=== PATIENT | female | born 1980 | race Caucasian/White ===

== ENCOUNTER 2017-04-08 14:58 | Emergency (ER) | payer MEDICAID ==
[~2017-04-08] VITALS: Ht 175.3 cm; Wt 104.3 kg
[2017-04-08 16:27] LABS: URINE BILIRUBIN - DIPSTICK NEGATIVE (NEG)
[2017-04-08 16:28] LABS: URINE BLOOD NEGATIVE (NEG)
--- NOTE | 2017-04-08 16:43 | Urgent Treatment Center Report ---
History of Present Issue Date/Time Seen by Provider 04/08/17 1642 Visit Reason Pt arrived:Walked Presenting Problem:PT C/O RLQ PAIN SINCE 0300 TODAY ALONG WITH NAUSEA AND ADVISES THAT IT HASN'T LET UP. PT REPORTS THAT SHE HAD A PARTIAL HYSTERECTOMY LAST JUN BUT STILL HAS HER OVARIES AND ALSO HAS HER APPENDIX Location if Accident: Onset of symptoms date/time:/ or onset unknown for:MEDICAL HX UNKNOWN Have you (or family members/close friends) recently traveled outside the [place]? N If Yes, where/when: Have you had exposure to infectious disease within the past month? TB? Other? Specify: c/o RLQ pain starting suddenly and waking her up at 0300 this morning. No relief w. advil, hot shower, gas x, heating pad, standing, sitting, laying down. Called PCP at 3pm. No available appts so reported to [facility] where she has waited her turn to be seen. Pain constant, 9/10, severe, sharp, "pressure pushing in and down" associated w/ constant nausea. no vomiting, "although I feel like I could". Denies diarrhea. Hx of partial hysterectomy 9 months ago. No appetite. Source patient Exam Limitations no limitations ALLERGIES Coded Allergies: No Known Allergies (03/11/17) Home Medications Reported Medications OMEPRAZOLE MAGNESIUM (Prilosec OTC) 20 MG PO DAILY History Medical History General CAD? No Angina: No [place]: No Hypertension? Yes Hyperlipidemia? No CHF? No DVT? No PE? No COPD? No Asthma? No Anemia? No GERD? No Gastric ulcers? No GI Bleed? No Hernia? No Thyroid Problems? No Hypothyroidism? No CVA? No Seizures? No Diabetes? No Insulin Dependent: No Insulin Pump: No Home FSBS? No Renal Insuffiency? No UTI? No Stones? No BPH? No GB Disease: No Nephritic Syndrome? No Asplenia? No Hepatitis? No Sickle Cell Disease? No Arthritis? No Migraines? No Cataracts? No Glaucoma? No MRSA? No HIV? No TB? No Anxiety? No Depression? No Cancer? No More? No Immunization HX DT/Tetanus 5-10 YRS Surgical Hx Previous Surgery?Y TUBAL MARTHA 07/06 Family History Family HX Diabetes No CAD No Hypertension Yes Hyperlipidemia No Cancer No TB No Social History Smoking Hx Smoker: Current Every Day Smoker Tobacco: Yes Type Cigarettes Packs/day 1 1/2 - 2 Packs Alcohol Alcohol: No Review of Systems All Other Systems Reviewed and Negative Constitutional denies chills, denies fever, denies malaise Respiratory denies shortness of breath Cardiovascular denies chest pain Gastrointestinal see HPI, denies constipation Genitourinary other (dark urine today w/ UA only). denies: discharge, dysuria, frequency, hesitancy, hematuria. Musculoskeletal denies back pain, denies joint pain Skin denies change in color, denies lesions, denies lumps, denies rash Physical Exam Vital Signs Vital Signs Date Time Temp Pulse Resp B/P Pulse O2 O2 Flow FiO2 Ox Delivery Rate 04/08 1617 98.8 89 18 130/82 96 General Appearance mild distress, guarding right lower quadrant Respiratory Status No: respiratory distress. Lung Sounds anterior: lungs clear. posterior: lungs clear. bilateral: lungs clear. Cardiovascular regular rate/rhythm, no peripheral edema, no murmur Gastrointestinal soft, no organomegaly, no pulsatile mass, abnormal bowel sounds (hypoactive), tenderness (RLQ) Back no CVA tenderness Neurologic alert, oriented x 3 Skin normal color, warm/dry Medical Decision Making LABS/Meds/Orders Pt receiving controlled substance in ED? No Results/Orders Laboratory Tests 04/08/17 1620: Urine Color DARK YELLOW, Urine Appearance CLOUDY, Urine pH 8.5, Ur Specific [place] 1.015, Urine Protein TRACE H, Urine Ketones NEGATIVE, Urine Blood NEGATIVE, Urine Nitrate POSITIVE H, Urine Bilirubin NEGATIVE, Urine Urobilinogen 1.0, Ur Leukocyte Esterase NEGATIVE, Urine Glucose NEGATIVE Orders Procedure Date/time Status [facility] URINE DIPSTICK 04/08 162 Complete Progress [facility] Progress Notes Date 04/08/17 Time 1650 Comment Discussed symptoms, exam and u/a results w/ pt. Pt doesn't agree that this is possible a UTI. Reports she has had UTIs in the past and never this severe. Requesting further abdominal pain evaluation. Called ER to give report. no answer. Departure Departure Time of Disposition 1654 Disposition Still a Patient Clinical Impression Primary Impression: Abdominal pain, right lower quadrant Condition STABLE Additional Instructions Requesting further abdominal pain evalution. Discussed ER transfer. Pt agreeable. Report called to [facility] at 1655. Room 4 available. at 1659
--- NOTE | 2017-04-08 16:43 | Urgent Treatment Center Report ---
History of Present Issue Date/Time Seen by Provider 04/08/17 1642 Visit Reason Pt arrived:Walked Presenting Problem:PT C/O RLQ PAIN SINCE 0300 TODAY ALONG WITH NAUSEA AND ADVISES THAT IT HASN'T LET UP. PT REPORTS THAT SHE HAD A PARTIAL HYSTERECTOMY LAST JUN BUT STILL HAS HER OVARIES AND ALSO HAS HER APPENDIX Location if Accident: Onset of symptoms date/time:/ or onset unknown for:MEDICAL HX UNKNOWN Have you (or family members/close friends) recently traveled outside the [place]? N If Yes, where/when: Have you had exposure to infectious disease within the past month? TB? Other? Specify: c/o RLQ pain starting suddenly and waking her up at 0300 this morning. No relief w. advil, hot shower, gas x, heating pad, standing, sitting, laying down. Called PCP at 3pm. No available appts so reported to [facility] where she has waited her turn to be seen. Pain constant, 9/10, severe, sharp, "pressure pushing in and down" associated w/ constant nausea. no vomiting, "although I feel like I could". Denies diarrhea. Hx of partial hysterectomy 9 months ago. No appetite. Source patient Exam Limitations no limitations ALLERGIES Coded Allergies: No Known Allergies (03/11/17) Home Medications Reported Medications OMEPRAZOLE MAGNESIUM (Prilosec OTC) 20 MG PO DAILY History Medical History General CAD? No Angina: No [place]: No Hypertension? Yes Hyperlipidemia? No CHF? No DVT? No PE? No COPD? No Asthma? No Anemia? No GERD? No Gastric ulcers? No GI Bleed? No Hernia? No Thyroid Problems? No Hypothyroidism? No CVA? No Seizures? No Diabetes? No Insulin Dependent: No Insulin Pump: No Home FSBS? No Renal Insuffiency? No UTI? No Stones? No BPH? No GB Disease: No Nephritic Syndrome? No Asplenia? No Hepatitis? No Sickle Cell Disease? No Arthritis? No Migraines? No Cataracts? No Glaucoma? No MRSA? No HIV? No TB? No Anxiety? No Depression? No Cancer? No More? No Immunization HX DT/Tetanus 5-10 YRS Surgical Hx Previous Surgery?Y TUBAL MARTHA 07/06 Family History Family HX Diabetes No CAD No Hypertension Yes Hyperlipidemia No Cancer No TB No Social History Smoking Hx Smoker: Current Every Day Smoker Tobacco: Yes Type Cigarettes Packs/day 1 1/2 - 2 Packs Alcohol Alcohol: No Review of Systems All Other Systems Reviewed and Negative Constitutional denies chills, denies fever, denies malaise Respiratory denies shortness of breath Cardiovascular denies chest pain Gastrointestinal see HPI, denies constipation Genitourinary other (dark urine today w/ UA only). denies: discharge, dysuria, frequency, hesitancy, hematuria. Musculoskeletal denies back pain, denies joint pain Skin denies change in color, denies lesions, denies lumps, denies rash Physical Exam Vital Signs Vital Signs Date Time Temp Pulse Resp B/P Pulse O2 O2 Flow FiO2 Ox Delivery Rate 04/08 1617 98.8 89 18 130/82 96 General Appearance mild distress, guarding right lower quadrant Respiratory Status No: respiratory distress. Lung Sounds anterior: lungs clear. posterior: lungs clear. bilateral: lungs clear. Cardiovascular regular rate/rhythm, no peripheral edema, no murmur Gastrointestinal soft, no organomegaly, no pulsatile mass, abnormal bowel sounds (hypoactive), tenderness (RLQ) Back no CVA tenderness Neurologic alert, oriented x 3 Skin normal color, warm/dry Medical Decision Making LABS/Meds/Orders Pt receiving controlled substance in ED? No Results/Orders Laboratory Tests 04/08/17 1620: Urine Color DARK YELLOW, Urine Appearance CLOUDY, Urine pH 8.5, Ur Specific [place] 1.015, Urine Protein TRACE H, Urine Ketones NEGATIVE, Urine Blood NEGATIVE, Urine Nitrate POSITIVE H, Urine Bilirubin NEGATIVE, Urine Urobilinogen 1.0, Ur Leukocyte Esterase NEGATIVE, Urine Glucose NEGATIVE Orders Procedure Date/time Status [facility] URINE DIPSTICK 04/08 [address] [facility] Progress Notes Date 04/08/17 Time 1650 Comment Discussed symptoms, exam and u/a results w/ pt. Pt doesn't agree that this is possible a UTI. Reports she has had UTIs in the past and never this severe. Requesting further abdominal pain evaluation. Called ER to give report. no answer. Departure Departure Time of Disposition 1654 Disposition Still a Patient Clinical Impression Primary Impression: Abdominal pain, right lower quadrant Condition STABLE Additional Instructions Requesting further abdominal pain evalution. Discussed ER transfer. Pt agreeable. Report called to [facility] at 1655. Room 4 available. at 1651
[2017-04-08 17:33] LABS: LYMPH # 3.5 K/mm3 (0.7-4.5); LYMPH % 21.7 % (10-50.0)
--- NOTE | 2017-04-08 17:47 | Emergency Room Report ---
History of Present Illness Time Seen by 285 Presenting Problem in Triage Pt arrived:Walked Presenting Problem:PT C/O RLQ PAIN SINCE 0300 TODAY ALONG WITH NAUSEA AND ADVISES THAT IT HASN'T LET UP. 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 N Clinical Suspician of Infection? N Mental Status: 1 - Regular (Normal Baseline) Sepsis Risk:Low Sepsis Risk Have you (or family members/close friends) recently traveled outside the [place]? N If Yes, where/when: Have you had exposure to infectious disease within the past month? N TB? Other? Specify: Nausea, diminished appetite since this morning, RLQ abdominal pain, nonradiating , no urinary sx, took some Ibuprofen PIZZA CHEF, hurts to move around. No neurological sx. No fever or vomiting, no blood from above or below, no personal or FH UC or Crohn's. ALLERGIES Coded Allergies: No Known Allergies (03/11/17) Home Medications Reported Medications OMEPRAZOLE MAGNESIUM (Prilosec OTC) 20 MG PO DAILY History Medical History General CAD? No Angina: No [place]: No Hypertension? Yes Hyperlipidemia? No CHF? No DVT? No PE? No COPD? No Asthma? No Anemia? No GERD? No Gastric ulcers? No GI Bleed? No Hernia? No Thyroid Problems? No Hypothyroidism? No CVA? No Seizures? No Diabetes? No Insulin Dependent: No Insulin Pump: No Home FSBS? No Renal Insuffiency? No End Stage Renal Disease? No UTI? No Stones? No BPH? No GB Disease: No Nephritic Syndrome? No Asplenia? No Hepatitis? No Sickle Cell Disease? No Arthritis? No Migraines? No Cataracts? No Glaucoma? No MRSA? No HIV? No TB? No Anxiety? No Depression? No Cancer? No More? No Immunization Hx DT/Tetanus 5-10 YRS Surgical Hx Previous Surgery?Y TUBAL MARTHA 07/06 [employer] Hx LMP N/A Family History Family Hx Diabetes No CAD No Hypertension Yes Hyperlipidemia No Cancer No TB No Social History Smoking Hx Smoker: Never Smoker Tobacco: No Type Cigarettes Packs/day 1 1/2 - 2 Packs Alcohol Alcohol: No Review of Systems All Other Systems Reviewed and Negative Gastrointestinal see HPI Physical Exam Vital Signs Vital Signs Date Time Temp Pulse Resp B/P Pulse O2 O2 Flow FiO2 Ox Delivery Rate 04/08 1855 88 16 143/70 96 04/08 1851 16 04/08 1843 72 16 143/70 97 04/08 1707 98.8 89 18 130/82 96 04/08 1617 98.8 89 18 130/82 96 General Appearance normal appearance, WD/WN, no apparent distress Eye Exam - bilateral eye normal exam, bilateral eye PERRL, bilateral eye EOMI Neck normal inspection, non-tender, supple, full range of motion Respiratory Status Yes: trachea midline, chest symmetrical, non tender chest. No: respiratory distress, tender on palpation, use of accessory muscles, pain on inspiration, pain on expiration, productive cough, non productive cough. Lung Sounds bilateral: normal breath sounds, lungs clear. Cardiovascular normal exam, regular rate/rhythm, no peripheral edema, no gallop, no JVD, no murmur, no rub, normal peripheral pulses Gastrointestinal normal bowel sounds, soft, no organomegaly, no pulsatile mass, no guarding, no rebound, tenderness (pain over McBurney's) Back normal inspection, no CVA tenderness, strt leg raising(L)-NML, strt leg raising(R)-NML Strength 5 Upper Ext (L), 5 Upper Ext (R), 5 Lower Ext (L), 5 Lower Ext (R) Neurologic alert, normal exam, no motor/sensory deficits, oriented x 3 Glascow Coma Scale Glascow Coma Scale Response Value EYE response: 4 Spontaneously 4 MOTOR response: 6 OBEYS 6 VERBAL response: 5 Oriented & Converses 5 Total 15 Skin intact, normal color, warm/dry Medical Decision Making LABS/Meds/Orders Pt receiving controlled substance in ED? No Results/Orders Laboratory Tests 04/08/17 1720: Sodium 141, Potassium 3.7, Chloride 106, Carbon Dioxide 26, BUN 16, Creatinine 0.7, Estimated Creat Clear 183, Estimated GFR (MDRD) 95, Glucose 86, Calcium 9.3 , Total Bilirubin 0.2, AST 13 L, ALT 17, Alkaline Phosphatase 76, Total Protein 7.0, Albumin 3.7, Globulin 3.3 H, Albumin/Globulin Ratio 1.1, Amylase 32, Lipase 159, WBC 16.1 H, RBC 4.64, Hgb 14.0, Hct 41.9, MCV 90.4, RDW 13.9, Plt Count 336, MPV 7.6, Gran % 69.2, Gran # 11.1 H, Total Counted 100, Lymphocytes % 21.7, Monocytes % 6.1, Eosinophils % 2.6, Basophils % 0.4, Neutrophils 77 H, Lymphocytes (Manual) 15, Lymphocytes # 3.5, Monocytes (Manual) 5, Monocytes # 1.0, Eosinophils # 0.4, Eosinophils # (Manual) 3, Basophils # 0.1, Platelet Estimate NORMAL, PUBS MCHC 33.4, MCH 30.2 04/08/17 1620: Urine Color DARK YELLOW, Urine Appearance CLOUDY, Urine pH 8.5, Ur Specific [place] 1.015, Urine Protein TRACE H, Urine Ketones NEGATIVE, Urine Blood NEGATIVE, Urine Nitrate POSITIVE H, Urine Bilirubin NEGATIVE, Urine Urobilinogen 1.0, Ur Leukocyte Esterase NEGATIVE, Urine Glucose NEGATIVE Current Medication Orders Sig/Dima Start time Last Medication Dose Route Stop Time Status Admin Ondansetron HCl 0 .STK-MED ONE 04/08 1849 DC .ROUTE Morphine Sulfate 0 .STK-MED ONE 04/08 1848 DC .ROUTE Morphine Sulfate 4 MG ONCE ONE 04/08 1845 DC 04/08 IV 04/08 1846 1851 Ondansetron HCl 4 MG ONCE ONE 04/08 1845 DC 04/08 IV 04/08 184 1851 Sodium Chloride 10 ML PRN PRN 04/08 171 AC IV 04/09 1710 Orders Procedure Date/time Status DIET-NOTHING BY MOUTH 04/09 B Active DIFFERENTIAL-WBC 04/[address] ABD/PELVIS REQ 04/08 171 Complete IV SALINE LOCK 04/08 1710 Active LIPASE 04/08 171 Complete CBC WITH AUTO DIFF 04/08 171 Complete CHEM 12 PROFILE 04/08 171 Complete AMYLASE 04/08 171 Complete UTC URINE DIPSTICK 04/08 1620 Complete US PELVIS-TRANSVAGINAL ONLY 04/08 UNK Active XRAY/CT/US XRAY/CT/US CT abdomen, pelvis CT interpretation by reviewed by me (report reviewed) Time results known: 1814 CT Results abnormal, ? adnexal mass w/ US recommended; have ordered US Ultrasound pelvis US Interpretation by reviewed by me (d/w tech) US results abnormal pelvis, polycystic ovaries noted; absent uterus; good ovarian flow per tech Progress ED Progress Notes Date 04/08/17 Time 1914 Comment Feeling better now. Departure Departure Time of Disposition 1914 Disposition DC Home or Self Care(routine) Clinical Impression Primary Impression: Abdominal pain, right lower quadrant Secondary Impressions: Ovarian cyst Qualifiers: Laterality: bilateral Qualified Code: N83.201 - Unspecified ovarian cyst, right side Condition STABLE Referrals JOEL LINN (Family) Patient Instructions DI for Acute Abdomen Additional Instructions Clear liquids overnight, see Dr. Linn for recheck abdomen in one day; go to closest ER if any increased pain or concerns; Rx Lortab; also see your gynecololgist for ovarian cysts. Discharge Counseling Counseled pt/family regarding diagnosis, test results, R/B of controlled subst., medications/RX, follow up needs Prescriptions Current Visit Scripts HYDROCODONE/ACETAMINOPHEN (LORTAB 5-325 (generic)) 1 TAB PO Q6HP PRN PAIN #10 TAB ED Critical Care Critical Care No at 1917
--- NOTE | 2017-04-08 17:47 | Emergency Room Report ---
History of Present Illness Time Seen by 375 Presenting Problem in Triage Pt arrived:Walked Presenting Problem:PT C/O RLQ PAIN SINCE 0300 TODAY ALONG WITH NAUSEA AND ADVISES THAT IT HASN'T LET UP. 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 N Clinical Suspician of Infection? N Mental Status: 1 - Regular (Normal Baseline) Sepsis Risk:Low Sepsis Risk Have you (or family members/close friends) recently traveled outside the [place]? N If Yes, where/when: Have you had exposure to infectious disease within the past month? N TB? Other? 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 No neurological sx. No fever or vomiting, no blood from above or below, no personal or FH UC or Crohn's. ALLERGIES Coded Allergies: No Known Allergies (03/11/17) Home Medications Reported Medications OMEPRAZOLE MAGNESIUM (Prilosec OTC) 20 MG PO DAILY History Medical History General CAD? No Angina: No [place]: No Hypertension? Yes Hyperlipidemia? No CHF? No DVT? No PE? No COPD? No Asthma? No Anemia? No GERD? No Gastric ulcers? No GI Bleed? No Hernia? No Thyroid Problems? No Hypothyroidism? No CVA? No Seizures? No Diabetes? No Insulin Dependent: No Insulin Pump: No Home FSBS? No Renal Insuffiency? No End Stage Renal Disease? No UTI? No Stones? No BPH? No GB Disease: No Nephritic Syndrome? No Asplenia? No Hepatitis? No Sickle Cell Disease? No Arthritis? No Migraines? No Cataracts? No Glaucoma? No MRSA? No HIV? No TB? No Anxiety? No Depression? No Cancer? No More? 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 Family History Family Hx Diabetes No CAD No Hypertension Yes Hyperlipidemia No Cancer No TB No Social History Smoking Hx Smoker: Never Smoker Tobacco: No Type Cigarettes Packs/day 1 1/2 - 2 Packs Alcohol Alcohol: No Review of Systems All Other Systems Reviewed and Negative Gastrointestinal see HPI Physical Exam Vital Signs Vital Signs Date Time Temp Pulse Resp B/P Pulse O2 O2 Flow FiO2 Ox Delivery Rate 04/08 1855 88 16 143/70 96 04/08 1851 16 04/08 1843 72 16 143/70 97 04/08 1707 98.8 89 18 130/82 96 04/08 1617 98.8 89 18 130/82 96 General Appearance normal appearance, WD/WN, no apparent distress Eye Exam - bilateral eye normal exam, bilateral eye PERRL, bilateral eye EOMI Neck normal inspection, non-tender, supple, full range of motion Respiratory Status Yes: trachea midline, chest symmetrical, non tender chest. No: respiratory distress, tender on palpation, use of accessory muscles, pain on inspiration, pain on expiration, productive cough, non productive cough. Lung Sounds bilateral: normal breath sounds, lungs clear. Cardiovascular normal exam, regular rate/rhythm, no peripheral edema, no gallop, no JVD, no murmur, no rub, normal peripheral pulses Gastrointestinal normal bowel sounds, soft, no organomegaly, no pulsatile mass, no guarding, no rebound, tenderness (pain over McBurney's) Back normal inspection, no CVA tenderness, strt leg raising(L)-NML, strt leg raising(R)-NML Strength 5 Upper Ext (L), 5 Upper Ext (R), 5 Lower Ext (L), 5 Lower Ext (R) Neurologic alert, normal exam, no motor/sensory deficits, oriented x 3 Glascow Coma Scale Glascow Coma Scale Response Value EYE response: 4 Spontaneously 4 MOTOR response: 6 OBEYS 6 VERBAL response: 5 Oriented & Converses 5 Total 15 Skin intact, normal color, warm/dry Medical Decision Making LABS/Meds/Orders Pt receiving controlled substance in ED? No Results/Orders Laboratory Tests 04/08/17 1720: Sodium 141, Potassium 3.7, Chloride 106, Carbon Dioxide 26, BUN 16, Creatinine 0.7, Estimated Creat Clear 183, Estimated GFR (MDRD) 95, Glucose 86, Calcium 9.3 , Total Bilirubin 0.2, AST 13 L, ALT 17, Alkaline Phosphatase 76, Total Protein 7.0, Albumin 3.7, Globulin 3.3 H, Albumin/Globulin Ratio 1.1, Amylase 32, Lipase 159, WBC 16.1 H, RBC 4.64, Hgb 14.0, Hct 41.9, MCV 90.4, RDW 13.9, Plt Count 336, MPV 7.6, Gran % 69.2, Gran # 11.1 H, Total Counted 100, Lymphocytes % 21.7, Monocytes % 6.1, Eosinophils % 2.6, Basophils % 0.4, Neutrophils 77 H, Lymphocytes (Manual) 15, Lymphocytes # 3.5, Monocytes (Manual) 5, Monocytes # 1.0, Eosinophils # 0.4, Eosinophils # (Manual) 3, Basophils # 0.1, Platelet Estimate NORMAL, PUBS MCHC 33.4, MCH 30.2 04/08/17 1620: Urine Color DARK YELLOW, Urine Appearance CLOUDY, Urine pH 8.5, Ur Specific [place] 1.015, Urine Protein TRACE H, Urine Ketones NEGATIVE, Urine Blood NEGATIVE, Urine Nitrate POSITIVE H, Urine Bilirubin NEGATIVE, Urine Urobilinogen 1.0, Ur Leukocyte Esterase NEGATIVE, Urine Glucose NEGATIVE Current Medication Orders Sig/Dima Start time Last Medication Dose Route Stop Time Status Admin Ondansetron HCl 0 .STK-MED ONE 04/08 1849 DC .ROUTE Morphine Sulfate 0 .STK-MED ONE 04/08 1848 DC .ROUTE Morphine Sulfate 4 MG ONCE ONE 04/08 1845 DC 04/08 IV 04/08 1846 1851 Ondansetron HCl 4 MG ONCE ONE 04/08 1845 DC 04/08 IV 04/08 184 1851 Sodium Chloride 10 ML PRN PRN 04/08 171 AC IV 04/09 1710 Orders Procedure Date/time Status DIET-NOTHING BY MOUTH 04/09 B Active DIFFERENTIAL-WBC 04/[address] ABD/PELVIS REQ 04/08 171 Complete IV SALINE LOCK 04/08 1710 Active LIPASE 04/08 171 Complete CBC WITH AUTO DIFF 04/08 171 Complete CHEM 12 PROFILE 04/08 171 Complete AMYLASE 04/08 171 Complete UTC URINE DIPSTICK 04/08 1620 Complete US PELVIS-TRANSVAGINAL ONLY 04/08 UNK Active XRAY/CT/US XRAY/CT/US CT abdomen, pelvis CT interpretation by reviewed by me (report reviewed) Time results known: 1814 CT Results abnormal, ? adnexal mass w/ US recommended; have ordered US Ultrasound pelvis US Interpretation by reviewed by me (d/w tech) US results abnormal pelvis, polycystic ovaries noted; absent uterus; good ovarian flow per tech Progress ED Progress Notes Date 04/08/17 Time 1914 Comment Feeling better now. Departure Departure Time of Disposition 1914 Disposition DC Home or Self Care(routine) Clinical Impression Primary Impression: Abdominal pain, right lower quadrant Secondary Impressions: Ovarian cyst Qualifiers: Laterality: bilateral Qualified Code: N83.201 - Unspecified ovarian cyst, right side Condition STABLE Referrals JOEL LINN (Family) Patient Instructions DI for Acute Abdomen Additional Instructions Clear liquids overnight, see Dr. Linn for recheck abdomen in one day; go to closest ER if any increased pain or concerns; Rx Lortab; also see your gynecololgist for ovarian cysts. Discharge Counseling Counseled pt/family regarding diagnosis, test results, R/B of controlled subst., medications/RX, follow up needs Prescriptions Current Visit Scripts HYDROCODONE/ACETAMINOPHEN (LORTAB 5-325 (generic)) 1 TAB PO Q6HP PRN PAIN #10 TAB ED Critical Care Critical Care No at 1917
--- NOTE | 2017-04-08 17:51 | RADIOLOGY REPORT PS360 ---
CT ABD PELVIS W/O CONTRAST CLINICAL INDICATION: ABD PAIN ORDERING PHYSICIAN: ENRIQUE SIMPSON APRN PATIENT AGE: 36 years COMPARISON: 07/11/2016 TECHNIQUE: Axial images obtained with sagittal and coronal reformats. PROCEDURE: Oral Contrast: None IV Contrast: None . FINDINGS: Patchy atelectatic changes are present within the lingula and both lung bases posteriorly. The liver, spleen, adrenal glands, pancreas, and kidneys have an unremarkable unenhanced CT appearance. The gallbladder is contracted. There are scattered small lymph nodes in the para-aortic region not significantly changed. Unremarkable appendix. No intestinal obstruction or free air. There is heterogeneous density in the right adnexal region.. While some of this may limited unopacified bowel, a pelvic mass is not excluded having a somewhat similar appearance on previous study with some higher density changes in the right adnexa. Hemorrhagic cyst is a consideration. Repeat CT with IV and oral contrast may be of further value. Small amount fluid in the cul-de-sac noted. There are post hysterectomy changes. No acute bony anomalies. IMPRESSION: Increased soft tissue density in the pelvis and right adnexa some of which may be due to unopacified bowel. Adnexal mass with pelvic fluid is also considered. Consider CT of the abdomen pelvis with IV and oral contrast. Alternatively, pelvic ultrasound may be of further value as well. Follow-up is recommended
[2017-04-08 18:44] LABS: NEUTROPHILS 77 % (42-76)
[2017-04-08 19:56] VITALS: BP 167/91
--- NOTE | 2017-04-09 06:17 | RADIOLOGY REPORT PS360 ---
US PELVIS-TRANSVAGINAL ONLY HISTORY: PELVIC PAIN, abnormal CT scan follow-up ORDERING PHYSICIAN: Chrystal Freeman MD PATIENT AGE: 36 years COMPARISON: None FINDINGS: There has been a prior hysterectomy. Right ovary is 3.4 x 2 cm. Left ovary is 4.7 x 3.3 cm. Bilateral ovarian follicles are present. Bilateral brain blood flow noted. No pelvic mass demonstrated by ultrasound. No cul-de-sac fluid. IMPRESSION: Prior hysterectomy with small bilateral ovarian follicles. The soft tissue density noted within the pelvic region noted on the CT scan may have been due to unopacified bowel and may be confirmed with repeat CT scan with IV and oral contrast
--- OUTSIDE RECORDS SUMMARY | 2017-05-01 05:02 | External Medical Summary Rpt ---
Author Author , RUTHY BLISS Address Unknown Phone [email or web address] [employer] Care Team Providers Care Business Management Associate Name Role Phone [facility], [facility] Unavailable Unavailable [facility], [facility] Unavailable Unavailable BEINEKE LIEN, BEINEKE Unavailable Unavailable LIEN [facility] Unavailable Unavailable HOSPITAL, [facility] MARSHALL, MARSHALL Unavailable Unavailable BROWN JAM, BROWN JAM Unavailable Unavailable BROWN JAM, BROWN JAM Unavailable Unavailable CHIPPS PATRICIA & Unavailable Unavailable DUBILIER, [facility]IPPS PATRIC[facility] DUBILIER JORGE TER, JORGE TER Unavailable Unavailable [facility], Unavailable Unavailable [facility] COUCH NAVID, COUCH NAVID Unavailable Unavailable CADEN, CADEN Unavailable Unavailable STACEY, STACEY Unavailable Unavailable STACEY NICANOR, Unavailable Unavailable STACEY NICANOR [facility] # [id number], Unavailable Unavailable [facility] # [id number] ROLANDO II THO, ROLANDO II Unavailable Unavailable THO ROLANDO II THO, ROLANDO II Unavailable Unavailable THO DEPA RAY, DEPA RAY Unavailable Unavailable FELLER EDDIE, FELLER Unavailable Unavailable EDDIE JR AMANDA FULLER, Unavailable Unavailable JR DONNA, DONNA Unavailable Unavailable DONNA KEV, DONNA Unavailable Unavailable KEV DONNA KEV, DONNA Unavailable Unavailable KEV [facility] Unavailable Unavailable HOSPITA, [facility] EZEQUIEL RHO, EZEQUIEL Unavailable Unavailable RHO [facility] Unavailable Unavailable INC, [facility] Unavailable Unavailable HOSPITAL P, [facility] MAYA HALFWAY, Unavailable Unavailable MAYA OBIE MAYA HALFWAY, Unavailable Unavailable MAY[facility] OBIE VANDANA, VANDANA Unavailable Unavailable CARCAMO PERCY, CARCAMO Unavailable Unavailable [facility] PERCY, CARCAMO Unavailable Unavailable [facility] GORDON EAGLE Unavailable Unavailable GORDON EAGLE Unavailable Unavailable [facility] Unavailable Unavailable GROUP PS, [facility] Unavailable Unavailable LLC, D, [facility], D [facility] Unavailable Unavailable LLC, D, [facility], [facility] Unavailable Unavailable [facility], [facility] Unavailable Unavailable [facility], [facility], [facility] SCHRADER BUCK, SCHRADER Unavailable Unavailable BUCK SCHRADER BUCK, SCHRADER Unavailable Unavailable BUCK VALERIA JR DWI, VALERIA Unavailable Unavailable JR DWI STEFFANY JUAN MANUEL, Unavailable Unavailable STEFFANY ZAMBRANO NWAUCHE [facility], NWAUCHE Unavailable Unavailable [facility] Un[facility] Un[facility]available [facility]available [facility], [facility] PICKLESIMER JR PEDRO, Unavailable Unavailable PICKLESIMER JR PEDRO SADEK MOH, SADEK MOH Unavailable Unavailable CRABTREE YANET, CRABTREE Unavailable Unavailable YANET SOTINGEANU LIEN, Unavailable Unavailable SOTINGEANU LIEN [facility] Unavailable Unavailable EMER[facility]Y PH[facility], [facility] ELY, III, ELY, Unavailable Unavailable III ELY, III JAM, Unavailable Unavailable ELY, III JAM WALKER FOR, WALKER Unavailable Unavailable FOR WE[facility], WEST Unavailable Unavailable WE[facility], WEST Unavailable Unavailable [facility], [facility] Unavailable Unavailable [facility], [facility] Unavailable Unavailable BANDAR EDW, BANDAR Unavailable Unavailable EDW [facility], Unavailable Unavailable [facility] ZIEMBROSKI JR, Unavailable Unavailable ZIEMBROSKI JR MARILU MAT, MARILU MAT Unavailable Unavailable MARILU MAT, MARILU MAT Unavailable Unavailable Purpose Continuity of Care Document - 04-02-2010 through 2016 Problems Code Diagnosis DOS Provider Status [id number] MIGRAINE 03-18-2017 [facility] W/AURA NOT INTRACT W/O STAT MIGRAINOSUS Z6834 BODY MASS 03-18-2017 [facility] INDEX BMI 34.0-34.9 ADULT I10 ESSENTIAL 03-11-2017 [facility]SIO [facility] G2581 RESTLESS 03-08-2017 [facility] LEGS SYNDROME J0100 ACUTE 01-07-2017 [facility] MAXILLARY SINUSITIS UNSPECIFIED J302 OTHER 01-07-2017 [facility] SEASONAL ALLERGIC RHINITIS Z6833 BODY MASS 01-07-2017 [facility] INDEX BMI 33.0-33.9 ADULT [id number] MIGRAINE 01-05-2017 [place] UNS NOT MEDICAL INTRACT W/O IMAGING ASS STATUS MIGRAINOSUS R4182 ALTERED 01-05-2017 [place] MENTAL [facility] STAT[facility] ASS UNSPECIFIED R51 HEADACHE 01-05-2017 [facility] N3000 ACUTE 07-11-2016 [facility] CYSTITIS [facility], WITHOUT PLLC HEMATURIA N390 URINARY 07-11-2016 [facility]CT [facility], INFECTION PLLC SITE NOT SPECIFIED E68951 UNSPECIFIED 07-11-2016 [facility] OVARIAN [facility], CYST RIGHT PLLC SIDE Z720 TOBACCO USE 07-11-2016 [facility] D259 LEIOMYOMA 2016 [facility] OF [facility] UNSPECIFIED N871 MODERATE 2016 [facility] DYSPLASIA [facility] N920 EXCESS & 2016 [place] [facility]REQUENT [facility] MENSTRUATIO FOUNDATION N W/REGULAR CYCLE N939 ABNORMAL 2016 [place] [facility] PS BLEEDING UNSPECIFIED D069 CARCINOMA 07-01-2016 [place] [facility] COMM[facility]TIY CERVIX HOSPITA UNSPECIFIED K219 GASTRO-ESOP 07-01-2016 [place] H REFLUX COMM[facility]TIY DISEASE HOSPITA WITHOUT ESOPHAGITIS [id number] ENCOUNTER 06-21-2016 [facility] FOR OTHER SERV PREPROCEDUR FOUNDATION AL EXAMINATION B977 PAPILLOMAVI 06-04-2016 [facility] LOS CAUSE LLC OF DZ CLASSIFIED ELSEWHERE D071 CARCINOMA 06-04-2016 [place] [facility] OF SERV VULVA FOUNDATION N879 DYSPLASIA 06-04-2016 [place] OF CERVIX ANESTHESIA UTERI GROUP PS UNSPECIFIED D060 CARCINOMA 06-03-2016 [place] [facility] COMM[facility]TIY ENDOCERVIX HOSPITA Q30054 UNSPECIFIED 06-03-2016 [place] ASTHMA COMMUNTIY UNCOMPLICAT HOSPITA ED S16977 HI G SQ 05-28-2016 [place] [facility] INTRAEPITHE SERV LIAL LES ON FOUNDATION CYTOL SMEAR CERV Z6831 BODY MASS 05-28-2016 [facility] INDEX BMI 31.0-31.9 ADULT Z3202 ENCOUNTER 05-15-2016 [facility] FOR SERV FOUNDATION TEST RESULT NEGATIVE Z78231 CERV HIGH 05-02-2016 [facility]SK [facility] PAPILLOMAVI LOS DNA TEST POS D80538 ENCOUNTER 05-02-2016 [facility], CONCERT PROMOTER EXAM LLC GENERAL RTN W/ABNORMAL FIND Z113 ENCOUNTER 05-02-2016 [facility], SCREEN LLC INFECTIONS SEXL MODE TRANSMISSN R1031 RIGHT LOWER 05-01-2016 [facility], PAIN PLLC J020 STREPTOCOCC 10-31-2015 [facility] AL PHARYNGITIS Z6828 BODY MASS 10-31-2015 [facility] INDEX BMI 28.0-28.9 ADULT [id number] PAIN IN 05-29-2015 [place] LEFT LOWER MEDICAL LEG IMAGING ASS R2242 LOCALIZED 05-29-2015 [place] [facility] MASS AND IMAGING ASS LUMP LEFT LOWER LIMB [id number] SPRAIN UNS 05-29-2015 [facility]ENT [facility], LEFT ANKLE PLL INITIAL ENCOUNTER N8320 UNSPECIFIED 05-27-2015 [facility] OVARIAN CYSTS 86000 DEHYDRATION 03-09-2015 [facility], [facility] 2768 HYPOPOTASSE 03-09-2015 [facility] 9924 HEAT 03-09-2015 [facility] D[facility] P DEPLETION 9925 HEAT 03-09-2015 [facility] RUIZ, PHYSICIANS, [facility] UNSPECIFIED E9000 ACCIDENT 03-09-2015 [facility] P HEAT WEATHER CONDITIONS 0340 STREPTOCOCC 09-07-2014 [facility] SORE N [facility] THROAT PHYS 3829 UNSPECIFIED 09-07-2014 [facility] OTITIS N EMERGENCY MEDIA PHYS 84660 ABDOMINAL 08-25-2014 [facility], [facility] UNSPECIFIED HOSPITAL SITE 98492 REFLUX 08-24-2014 [facility] ESOPHAGITIS 87905 ABDOMINAL 08-23-2014 [facility] RIGHT [facility] QUADRANT 7871 HEARTBURN 07-05-2014 [facility] 25977 ABDOMINAL 07-05-2014 [facility] RIGHT [facility] UPPER QUADRANT 5533 DIAPHRAGMAT 06-25-2014 [place] BRANDON W/O MEDICAL MENTION IMAGING ASS OBSTRUCTION /GANGREN 5990 URINARY 04-20-2014 [facility] TRACT INFECTION SITE NOT SPECIFIED 7242 LUMBAGO 03-01-2014 DONAN KEV 7244 THORACIC/NINO 03-01-2014 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 9597 INJURY 09-02-2013 [facility] OTHER&UNSPE CIFIED KNEE LEG ANKLE&FOOT 29578 ABDOMINAL 04-25-2013 [facility] PAIN OTHER SPECIFIED SITE V1301 PERSONAL 04-25-2013 ROLANDO II THO HISTORY OF URINARY CALCULI 56684 PATELLAR 04-20-2013 [facility] TENDINITIS 4779 ALLERGIC 02-03-2013 [facility] RHINITIS CAUSE UNSPECIFIED 7840 HEADACHE 02-03-2013 [facility] 18369 MIGRAINE 02-02-2013 [facility] UNSP W/O INTRACT W/O STATUS MIGRAINOSUS 36092 PAIN IN 11-26-2012 [facility] JOINT PELVIC REGION AND THIGH 7265 ENTHESOPATH 11-26-2012 [facility] Y OF HIP REGION 67969 UNSPECIFIED 10-26-2012 ROLANDO II THO TEMPOROMAND IBULAR JOINT DISORDERS 44724 ARTHRALGIA 10-26-2012 ROLANDO II THO OF TEMPOROMAND IBULAR JOINT 79021 SHORTNESS 07-31-2012 [facility] 7862 COUGH 07-31-2012 [facility] 52620 CHEST PAIN 07-31-2012 MARILU MAT UNSPECIFIED 486 PNEUMONIA, 07-30-2012 [facility] ORGANISM UNSPECIFIED 4871 INFLUENZA 07-30-2012 [facility] WITH OTHER RESPIRATORY MANIFESTATI ONS 52547 ASTHMA, 07-27-2012 ROLANDO II THO UNSPECIFIED , UNSPECIFIED STATUS 4660 ACUTE 07-24-2012 [facility] BRONCHITIS 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 2298 BENIGN 12-19-2010 SCHRADER BUCK NEOPLASM OF OTHER SPECIFIED SITES 92252 OTHER 12-19-2010 [facility] SEBORRHEIC PATRICIA & KERATOSIS DUBILIER 7099 UNSPECIFIED 12-19-2010 [place] [facility] OF GROUP [facility] SKIN&SUBCUT ANEOUS TISSUE 53955 INTRINSIC 12-12-2010 [place] [facility], D 96287 ESOPHAGEAL 11-28-2010 SCHRADER BUCK REFLUX 7881 DYSURIA 11-14-2010 [facility] 25825 UNS 05-18-2010 [facility] GASTRITIS&G OBIE ASTRODUODIT IS W/O MENTION HEMORR V7231 ROUTINE 05-18-2010 [facility] GYNECOLOGIC OBIE AL EXAMINATION 17933 ACUT 04-02-2010 [facility] PYELONEPHRI TIS W/O LES RENAL MEDULRY NECROS G43.909 MIGRAINE, UNSP, NOT INTRACTABLE , WITHOUT STATUS MIGRAINOSUS I10 ESSENTIAL (PRIMARY) HYPERTENSIO N N83.209 UNSPECIFIED OVARIAN CYST, UNSPECIFIED SIDE R10.31 RIGHT LOWER QUADRANT PAIN R51 HEADACHE Allergies, Adverse Reactions, Alerts Clinical Alert Notifications Alert Asthma: no influenza vaccine in the last 365 days Medications Na ND Rx Da Fi Fi Am Da Di Ph RX Ph St me C No te ll ll ou ys ag ar # ys at rm s nt no ma ic us Or Da si cy ia de te s n re d GA 69 08 09 30 30 00 KE Ac BA 09 -2 -2 .0 00 NT ti PE 70 8- 9- 00 01 UC ve NT 81 20 20 05 [place] IN 41 17 17 48 2 60 CV 30 S 0 PH MG AR MA CA CY PS UL LL E C, DB A CV S PH AR MA CY #3 01 6 TO 69 08 09 60 30 00 KE Ac PI 09 -1 -2 .0 00 NT ti RA 70 8- 2- 00 01 UC ve MA 12 20 20 05 [place] TE 30 17 17 20 3 83 CV 50 S PH MG AR MA TA CY BL ET LL C, DB A CV S PH AR MA CY #3 01 6 WILKERSON 55 08 09 9. 9 00 KE Ac MA 11 -1 -1 00 00 NT ti TR 10 4- 5- 0 01 UC ve IP 29 20 20 05 [place] TA 33 17 17 06 N 6 46 CV WILKERSON S CC PH AR 10 MA 0 CY MG LL TA C, BL ET DB A CV S PH AR MA CY #3 01 6 CE 00 08 09 30 30 00 KE Ac TI 37 -1 -1 .0 00 NT ti RI 83 2- 5- 00 01 UC ve ZI 63 20 20 03 [place] NE 70 17 17 74 1 90 CV HC S L PH 10 AR MA MG CY TA LL BL C, ET DB A CV S PH AR MA CY #3 01 6 LO 68 08 09 30 30 00 KE Ac SA 18 -1 -1 .0 00 NT ti RT 00 2- 5- 00 01 UC ve AN 21 20 20 03 [place] -H [address] 9 89 CV Z S 50 PH -1 AR 2. MA 5 CY MG LL TA C, B DB A CV S PH AR MA CY #3 01 6 MO 00 08 09 30 30 00 KE Ac NT 09 -1 -1 .0 00 NT ti EL 37 2- 5- 00 01 UC ve UK 42 20 20 03 [place] 69 17 17 74 T 8 92 CV SO S D PH 10 AR MA MG CY TA LL BL C, ET DB A CV S PH AR MA CY #3 01 6 TO 69 08 09 30 30 00 KE Ac PI 09 -1 -1 .0 00 NT ti RA 70 2- 5- 00 01 UC ve MA 12 20 20 03 [place] TE 20 17 17 74 3 94 CV 25 S PH MG AR MA TA CY BL ET LL C, DB A CV S PH AR MA CY #3 01 6 VE 00 08 09 18 29 00 KE Ac NT 17 -1 -1 .0 00 NT ti OL 30 2- 5- 00 01 UC ve IN 68 20 20 03 [place] 22 17 17 74 HF 0 95 CV A S 90 PH AR MC MA G CY IN MEJIA LL LE C, R DB A CV S PH AR MA CY #3 01 6 MO 00 07 08 30 30 00 KE Ac NT 09 -1 -1 .0 00 NT ti EL 37 6- 8- 00 01 UC ve UK 42 20 20 03 [place] 69 17 17 74 T 8 92 CV SO S D PH 10 AR MA MG CY TA LL BL C, ET DB A CV S PH AR MA CY #3 01 6 CE 00 07 08 30 30 00 KE Ac TI 37 -1 -1 .0 00 NT ti RI 83 6- 8- 00 01 UC ve ZI 63 20 20 03 [place] NE 70 17 17 74 1 90 CV HC S L PH 10 AR MA MG CY TA LL BL C, ET DB A CV S PH AR MA CY #3 01 6 TO 69 07 08 30 30 00 KE Ac PI 09 -1 -1 .0 00 NT ti RA 70 6- 8- 00 01 UC ve MA 81 20 20 03 [place] TE 60 17 17 74 3 94 CV 25 S PH MG AR MA TA CY BL ET LL C, DB A CV S PH AR MA CY #3 01 6 VE 00 07 08 18 29 00 KE Ac NT 17 -1 -1 .0 00 NT ti OL 30 5- 8- 00 01 UC ve IN 68 20 20 03 [place] 22 17 17 74 HF 0 95 CV A S 90 PH AR MC MA G CY IN MEJIA LL LE C, R DB A CV S PH AR MA CY #3 01 6 WILKERSON 55 07 08 9. 9 00 KE Ac MA 11 -1 -1 00 00 NT ti TR 10 7- 8- 0 01 UC ve IP 29 20 20 03 [place] TA 33 17 17 74 N 6 96 CV WILKERSON S CC PH AR 10 MA 0 CY MG LL TA C, BL ET DB A CV S PH AR MA CY #3 01 6 LO 68 07 08 30 30 00 KE Ac SA 18 -1 -1 .0 00 NT ti RT 00 6- 8- 00 01 UC ve AN 21 20 20 03 [place] -H [address] 9 89 CV Z S 50 PH -1 AR 2. MA 5 CY MG LL TA C, B DB A CV S PH AR MA CY #3 01 6 FL 00 07 08 16 30 00 KE Ac UT 05 -1 -1 .0 00 NT ti IC 43 6- 8- 00 01 UC ve 27 20 20 03 [place] ON 09 17 17 74 E 9 91 CV WA S OP PH AR 50 MA CY MC G LL SP C, RA Y DB A CV S PH AR MA CY #3 01 6 LO 68 06 07 30 30 00 KE Ac SA 18 -1 -2 .0 00 NT ti RT 00 01 UC ve AN 21 20 20 03 [place] -H [address] 9 89 CV Z S 50 PH -1 AR 2. MA 5 CY MG LL TA C, B DB A CV S PH AR MA CY #3 01 6 CE 00 06 07 30 30 00 KE Ac TI 37 -1 -2 .0 00 NT ti RI 83 01 UC ve ZI 63 20 20 03 [place] NE 70 17 17 74 1 90 CV HC S L PH 10 AR MA MG CY TA LL BL C, ET DB A CV S PH AR MA CY #3 01 6 FL 00 06 07 16 30 00 KE Ac UT 05 -1 -2 .0 00 NT ti IC 43 01 UC ve 27 20 20 03 [place] ON 09 17 17 74 E 9 91 CV WA S OP PH AR 50 MA CY MC G LL SP C, RA Y DB A CV S PH AR MA CY #3 01 6 WA 65 06 07 15 4 00 KE Ac OM 16 -2 -2 .0 00 NT ti ET 20 1- - 00 UC ve MEJIA 52 20 20 99 [place] ZI 11 17 17 14 NE 0 42 CV S 25 PH AR MG MA CY TA BL LL ET C, DB A CV S PH AR MA CY #3 01 6 MO 00 06 07 30 30 00 KE Ac NT 09 -1 -2 .0 00 NT ti EL 37 9 01 UC ve [place] 42 20 20 03 [place] 69 17 17 74 T 8 92 CV SO S D PH 10 AR MA MG CY TA LL BL C, ET DB A CV S PH AR MA CY #3 01 6 AM 65 06 07 20 10 00 KE Ac OX 86 -1 -2 .0 00 NT ti IC 20 9- 1- 00 01 UC ve IL 01 20 20 03 [place] LI 50 17 17 74 N 1 93 CV 87 S 5 PH MG AR MA TA CY BL ET LL C, DB A CV S PH AR MA CY #3 01 6 TO 69 06 07 30 30 00 KE Ac PI 09 -1 -2 .0 00 NT ti RA 70 9- 1- 00 01 UC ve MA 81 20 20 03 [place] TE 60 17 17 74 3 94 CV 25 S PH MG AR MA TA CY BL ET LL C, DB A CV S PH AR MA CY #3 01 6 VE 00 06 07 18 30 00 KE Ac NT 17 -1 -2 .0 00 NT ti OL 30 9- 1- 00 01 UC ve IN 68 20 20 03 [place] 22 17 17 74 HF 0 95 CV A S 90 PH AR MC MA G CY IN MEJIA LL LE C, R DB A CV S PH AR MA CY #3 01 6 WILKERSON 55 06 07 9. 9 00 KE Ac MA 11 -1 -2 00 00 NT ti TR 10 9- 1- 0 01 UC ve IP 29 20 20 03 [place] TA 33 17 17 74 N 6 96 CV WILKERSON S CC PH AR 10 MA 0 CY MG LL TA C, BL ET DB A CV S PH AR MA CY #3 01 6 VE 00 01 02 18 25 00 KE Ac NT 17 -0 -1 .0 00 NT ti OL 30 9- 0- 00 00 UC ve IN 68 20 20 99 [place] 22 17 17 45 HF 0 73 CV A S 90 PH AR MC MA G CY IN MEJIA LL LE C, R DB A CV S PH AR MA CY #3 01 6 ME 00 12 02 [address] 55 -3 -0 .0 00 NT ti OX 50 1- 3- 00 00 UC ve YP 77 20 20 97 [place] RO 90 16 17 29 [address] S ER PH ON AR E MA 10 CY MG LL C, TA B DB A CV S PH AR MA CY #3 01 6 WA 65 12 02 15 4 00 KE Ac OM 16 -3 -0 .0 00 NT ti ET 20 1- 3- 00 00 UC ve MEJIA 52 20 20 99 [place] ZI 11 16 17 14 NE 0 42 CV S 25 PH AR MG MA CY TA BL LL ET C, DB A CV S PH AR MA CY #3 01 6 LO 68 01 02 30 30 00 KE Ac SA 18 -0 -0 .0 00 NT ti RT 00 3- 3- 00 00 UC ve AN 21 20 20 97 [place] -H [address] 9 29 CV Z S 50 PH -1 AR 2. MA 5 CY MG LL TA C, B DB A CV S PH AR MA CY #3 01 6 AM 00 12 01 20 10 00 KE Ac OX 78 -2 -2 .0 00 NT ti -C 11 3- 7- 00 UC ve LA 85 20 20 99 [place] V 22 16 17 06 87 0 43 CV 5- S 12 PH 5 AR MG MA CY TA BL LL ET C, DB A CV S PH AR MA CY #3 01 6 ME 50 12 01 20 10 00 KE Ac TR 11 -2 -2 .0 00 NT ti ON 10 3- 7- 00 UC ve ID 33 20 20 99 [place] 40 16 17 06 OL 1 44 CV E S 50 PH 0 AR MG MA CY TA BL LL ET C, DB A CV S PH AR MA CY #3 01 6 IB 53 12 01 30 8 00 KE Ac UP 74 -2 -2 .0 00 NT ti RO 60 6- 7- 00 UC ve FE 46 20 20 99 [place] N 50 16 17 10 60 5 79 CV 0 S MG PH AR TA MA BL CY ET LL C, DB A CV S PH AR MA CY #3 01 6 WA 65 12 01 15 4 00 KE Ac OM 16 -2 -2 .0 00 NT ti ET 20 7- 7- 00 UC ve MEJIA 52 20 20 99 [place] ZI 11 16 17 14 NE 0 42 CV S 25 PH AR MG MA CY TA BL LL ET C, DB A CV S PH AR MA CY #3 01 6 CI 65 12 01 14 7 00 KE Ac WA 86 -2 -2 .0 00 NT ti OF 20 2- 7- 00 UC ve LO 07 20 20 99 [place] XA 70 16 17 00 CI 1 96 CV N S HC PH L AR 50 MA 0 CY MG LL TA C, B DB A CV S PH AR MA CY #3 01 6 WA 65 12 01 15 4 00 KE Ac OM 16 -2 -2 .0 00 NT ti ET 20 1- 0- 00 00 UC ve MEJIA 52 20 20 98 [place] ZI 11 16 17 99 NE 0 70 CV S 25 PH AR MG MA CY TA BL LL ET C, DB A CV S PH AR MA CY #3 01 6 IB 53 12 01 60 15 00 KE Ac UP 74 -1 -1 .0 00 NT ti RO 60 1- 3- 00 00 UC ve FE 46 20 20 97 [place] N 50 16 17 29 60 5 15 CV 0 S MG PH AR TA MA BL CY ET LL C, DB A CV S PH AR MA CY #3 01 6 OX 42 12 01 36 3 00 KE Ac YC 85 -1 -1 .0 00 NT ti OD 80 3- 3- 00 00 UC ve ON 10 20 20 98 [place] E- 20 16 17 72 AC 1 30 CV ET S AM PH IN AR OP MA HE CY N 5- LL 32 C, 5 DB A CV S PH AR MA CY #3 01 6 CV 50 12 01 12 30 00 KE Ac S 42 -1 -1 0. [address] 83 3- 3- 00 00 UC ve OO 10 20 20 0 98 [place] L 42 16 17 72 SO 5 31 CV FT S EN PH ER AR MA 10 CY 0 MG LL C, CA P DB A CV S PH AR MA CY #3 01 6 FL 00 12 01 16 30 00 KE Ac UT 05 -1 -1 .0 00 NT ti IC 43 0- 3- 00 00 UC ve 27 20 20 92 [place] ON 09 16 17 61 E 9 19 CV WA S OP PH AR 50 MA CY MC G LL SP C, RA Y DB A CV S PH AR MA CY #3 01 6 VE 00 12 01 18 25 00 KE Ac NT 17 -1 -1 .0 00 NT ti OL 30 1- 3- 00 00 UC ve IN 68 20 20 96 [place] 22 16 17 47 HF 0 02 CV A S 90 PH AR MC MA G CY IN MEJIA LL LE C, R DB A CV S PH AR MA CY #3 01 6 LO 68 12 01 30 30 00 KE Ac SA 18 -0 -0 .0 00 NT ti RT 00 6- 9- 00 00 UC ve AN 21 20 20 97 [place] -H [address] 9 29 CV Z S 50 PH -1 AR 2. MA 5 CY MG LL TA C, B DB A CV S PH AR MA CY #3 01 6 AM 00 11 11 2 30 30 CV 62 WE Ac IT 37 -1 -[address] ti RI 82 7- 7- 00 PH 43 ve PT 67 20 20 AR RY YL 50 11 11 MA AN IN 1 CY B E # HC L 03 75 01 6 MG TA B CE 00 09 11 2 30 30 CV 61 WE Ac TI 37 -2 -[address] ti RI 83 1- 7- 00 PH 56 ve ZI 63 20 20 AR RY NE 70 11 11 MA AN 1 CY B HC # L 10 03 01 MG 6 TA BL ET WILKERSON 55 09 11 2 9. 30 CV 61 WE Ac MA 11 -2 -[address] ti TR 10 1- 7- 0 PH 58 ve IP 29 20 20 AR RY TA 33 11 11 MA AN N 6 CY B WILKERSON # CC 03 10 01 0 6 MG TA BL ET RA 68 09 11 4 60 30 CV 61 WE Ac NI 46 -0 -[address] ti TI 20 6- 5- 00 PH 67 ve DI 24 20 20 AR RY NE 80 11 11 MA AN 5 CY B 15 # 0 MG 03 01 TA 6 BL ET WA 37 09 11 11 56 28 CV 61 WE Ac IL 00 -0 -[address] ti OS 00 1- 1- 00 PH 92 ve EC 45 20 20 AR RY 50 11 11 MA AN OT 3 CY B C # 20 .6 03 01 MG 6 TA BL ET FL 00 09 11 2 16 30 CV 61 WE Ac UT 05 -2 -[address] ti IC 43 1- 1- 00 PH 57 ve 27 20 20 AR RY ON 09 11 11 MA AN E 9 CY B WA # OP 03 50 01 6 MC G SP RA Y WILKERSON 55 09 10 2 9. 30 CV 61 WE Ac MA 11 -2 -[address] ti TR 10 1- 9- 0 PH 58 ve IP 29 20 20 AR RY TA 33 11 11 MA AN N 6 CY B WILKERSON # CC 03 10 01 0 6 MG TA BL ET AM 00 03 10 4 30 30 CV 59 WE Ac IT 37 -2 -[address] ti RI 82 8- 8- 00 PH 75 ve PT 67 20 20 AR RY YL 50 11 11 MA AN IN 1 CY B E # HC L 03 75 01 6 MG TA B RA 68 09 10 4 60 30 CV 61 WE Ac NI 46 -0 -[address] ti TI 20 6- 8- 00 PH 67 ve DI 24 20 20 AR RY NE 80 11 11 MA AN 5 CY B 15 # 0 MG 03 01 TA 6 BL ET CE 00 09 10 2 30 30 CV 61 WE Ac TI 37 -2 -[address] ti RI 83 1- 8- 00 PH 56 ve ZI 63 20 20 AR RY NE 70 11 11 MA AN 1 CY B HC # L 10 03 01 MG 6 TA BL ET WA 37 09 10 11 56 28 CV 61 WE Ac IL 00 -0 -[address] ti OS 00 1- 6- 00 PH 92 ve EC 45 20 20 AR RY 50 11 11 MA AN OT 3 CY B C # 20 .6 03 01 MG 6 TA BL ET CE 00 09 09 2 30 30 CV 61 WE Ac TI 37 -2 -[address] ti RI 83 1- 1- 00 PH 56 ve ZI 63 20 20 AR RY NE 70 11 11 MA AN 1 CY B HC # L 10 03 01 MG 6 TA BL ET FL 00 09 09 2 16 30 CV 61 WE Ac UT 05 -2 -[address] ti IC 43 1- 1- 00 PH 57 ve 27 20 20 AR RY ON 09 11 11 MA AN E 9 CY B WA # OP 03 50 01 6 MC G SP RA Y WILKERSON 55 09 09 2 9. 30 CV 61 WE Ac MA 11 -2 -[address] ti TR 10 1- 1- 0 PH 58 ve IP 29 20 20 AR RY TA 33 11 11 MA AN N 6 CY B WILKERSON # CC 03 10 01 0 6 MG TA BL ET AM 00 03 09 4 30 30 CV 59 WE Ac IT 37 -2 -[address] ti RI 82 8- 0- 00 PH 75 ve PT 67 20 20 AR RY YL 50 11 11 MA AN IN 1 CY B E # HC L 03 75 01 6 MG TA B WA 37 09 09 11 56 28 CV 61 WE Ac IL 00 -0 -[address] ti OS 00 1- 0- 00 PH 92 ve EC 45 20 20 AR RY 50 11 11 MA AN OT 3 CY B C # 20 .6 03 01 MG 6 TA BL ET RA 68 09 09 4 60 30 CV 61 WE Ac NI 46 -0 -[address] ti TI 20 6- 0- 00 PH 67 ve DI 24 20 20 AR RY NE 80 11 11 MA AN 5 CY B 15 # 0 MG 03 01 TA 6 BL ET VE 00 05 08 1 18 30 CV 60 WE Ac NT 17 -2 -[address] ti OL 30 4- 3- 00 PH 44 ve IN 68 20 20 AR RY 22 11 11 MA AN HF 0 CY B A # 90 03 MC 01 G 6 IN MEJIA LE R WILKERSON 55 08 08 0 9. 30 CV 61 WE Ac MA 11 -1 -[address] ti TR 10 0- 0- 0 PH 18 ve IP 29 20 20 AR RY TA 23 11 11 MA AN N 6 CY B WILKERSON # CC 03 50 01 6 MG TA BL ET WA 37 02 08 5 56 28 CV 59 WE Ac IL 00 -2 -[address] ti OS 00 8- 9- 00 PH 15 ve EC 45 20 20 AR RY 50 11 11 MA AN OT 3 CY B C # 20 .6 03 01 MG 6 TA BL ET AM 00 03 08 4 30 30 CV 59 WE Ac IT 37 -2 -[address] ti RI 82 8- 9- 00 PH 75 ve PT 67 20 20 AR RY YL 50 11 11 MA AN IN 1 CY B E # HC L 03 75 01 6 MG TA B RA 00 03 08 4 60 30 CV 59 WE Ac NI 78 -2 -[address] ti TI 11 8- 9- 00 PH 76 ve DI 88 20 20 AR RY NE 31 11 11 MA AN 0 CY B 15 # 0 MG 03 01 TA 6 BL ET WA 37 02 07 5 56 28 CV 59 WE Ac IL 00 -2 -[address] ti OS 00 8- 4- 00 PH 15 ve EC 45 20 20 AR RY 50 11 11 MA AN OT 3 CY B C # 20 .6 03 01 MG 6 TA BL ET WILKERSON 55 05 07 2 9. 30 CV 60 WE Ac MA 11 -0 -[address] ti TR 10 2- 4- 0 PH 49 ve IP 29 20 20 AR RY TA 23 11 11 MA AN N 6 CY B WILKERSON # CC 03 50 01 6 MG TA BL ET RA 68 03 07 4 60 30 CV 59 WE Ac NI 46 -2 -[address] ti TI 20 8- 2- 00 PH 76 ve DI 24 20 20 AR RY NE 80 11 11 MA AN 5 CY B 15 # 0 MG 03 01 TA 6 BL ET WA 37 02 06 5 56 28 CV 59 WE Ac IL 00 -2 -[address] ti OS 00 8- 5- 00 PH 15 ve EC 45 20 20 AR RY 50 11 11 MA AN OT 3 CY B C # 20 .6 03 01 MG 6 TA BL ET RA 68 03 06 4 60 30 CV 59 WE Ac NI 46 -2 -[address] ti TI 20 8- 5- 00 PH 76 ve DI 24 20 20 AR RY NE 80 11 11 MA AN 5 CY B 15 # 0 MG 03 01 TA 6 BL ET WILKERSON 55 05 06 2 9. 30 CV 60 WE Ac MA 11 -0 -[address] ti TR 10 2- 8- 0 PH 49 ve IP 29 20 20 AR RY TA 23 11 11 MA AN N 6 CY B WILKERSON # CC 03 50 01 6 MG TA BL ET AC 00 05 05 0 30 8 CV 60 LA Ac ET 09 -3 -3 .0 S 56 WS ti AM 30 1- 1- 00 PH 82 ON ve IN 15 20 20 AR OP 01 11 11 MA HE [address] N- # OR CO G D 03 #3 01 6 TA BL ET AZ 59 05 05 0 6. 5 CV 60 WE Ac IT 76 -2 -[address] ti HR 23 4- 4- 0 PH 40 ve OM 06 20 20 AR RY YC 00 11 11 MA AN IN 1 CY B # 25 0 03 MG 01 6 TA BL ET 63 05 05 0 12 3 CV 60 WE Ac 71 -2 -[address] ti 70 4- 4- 00 PH 41 ve 55 20 20 0 AR RY 31 11 11 MA AN 6 CY B # 03 01 6 VE 00 05 05 1 18 30 CV 60 WE Ac NT 17 -2 -[address] ti OL 30 4- 4- 00 PH 44 ve IN 68 20 20 AR RY 22 11 11 MA AN HF 0 CY B A # 90 03 MC 01 G 6 IN MEJIA LE R ME 59 05 05 0 21 6 WI 37 WE Ac TH 74 -2 -[address] ti YL 60 4- 4- 00 ON 31 ve WA 00 20 20 RY ED [address] AN NI 3 UG B SO LO IN NE C 4 MG DO SE PK WA 37 02 05 5 56 28 CV 59 WE Ac IL 00 -2 -[address] ti OS 00 8- 6- 00 PH 15 ve EC 45 20 20 AR RY 50 11 11 MA AN OT 3 CY B C # 20 .6 03 01 MG 6 TA BL ET WILKERSON 55 05 05 2 9. 30 CV 60 WE Ac MA 11 -0 -[address] ti TR 10 2- 2- 0 PH 49 ve IP 29 20 20 AR RY TA 23 11 11 MA AN N 6 CY B WILKERSON # CC 03 50 01 6 MG TA BL ET CI 16 04 04 0 6. 3 CV 60 WE Ac WA 25 -2 -[address] ti OF 20 6- 6- 0 PH 00 ve LO 51 20 20 AR RY XA 50 11 11 MA AN CI 1 CY B N # HC L 03 50 01 0 6 MG TA B 65 04 04 0 6. 2 CV 60 WE Ac 16 -2 -[address] ti 20 6- 6- 0 PH 01 ve 51 20 20 AR RY 71 11 11 MA AN 0 CY B # 03 01 6 AM 00 03 04 4 30 30 CV 59 WE Ac IT 37 -2 -[address] ti RI 82 8- 5- 00 PH 75 ve PT 67 20 20 AR RY YL 50 11 11 MA AN IN 1 CY B E # HC L 03 75 01 6 MG TA B RA 68 03 04 4 60 30 CV 59 WE Ac NI 46 -2 -[address] ti TI 20 8- 5- 00 PH 76 ve DI 24 20 20 AR RY NE 80 11 11 MA AN 5 CY B 15 # 0 MG 03 01 TA 6 BL ET WA 37 02 04 5 56 28 CV 59 WE Ac IL 00 -2 -[address] ti OS 00 8- 0- 00 PH 15 ve EC 45 20 20 AR RY 50 11 11 MA AN OT 3 CY B C # 20 .6 03 01 MG 6 TA BL ET WILKERSON 55 02 04 2 9. 30 CV 58 WE Ac MA 11 -0 -[address] ti TR 10 4- 3- 0 PH 52 ve IP 29 20 20 AR RY TA 23 11 11 MA AN N 6 CY B WILKERSON # CC 03 50 01 6 MG TA BL ET AM 00 03 03 4 30 30 CV 59 WE Ac IT 37 -2 -[address] ti RI 82 8- 8- 00 PH 75 ve PT 67 20 20 AR RY YL 50 11 11 MA AN IN 1 CY B E # HC L 03 75 01 6 MG TA B RA 68 03 03 4 60 30 CV 59 WE Ac NI 46 -2 -[address] ti TI 20 8- 8- 00 PH 76 ve DI 24 20 20 AR RY NE 80 11 11 MA AN 5 CY B 15 # 0 MG 03 01 TA 6 BL ET WA 37 02 03 5 56 28 CV 59 WE Ac IL 00 -2 -[address] ti OS 00 8- 4- 00 PH 15 ve EC 45 20 20 AR RY 50 11 11 MA AN OT 3 CY B C # 20 .6 03 01 MG 6 TA BL ET WILKERSON 55 02 03 2 9. 30 CV 58 WE Ac MA 11 -0 -[address] ti TR 10 4- 3- 0 PH 52 ve IP 29 20 20 AR RY TA 23 11 11 MA AN N 6 CY B WILKERSON # CC 03 50 01 6 MG TA BL ET AM 00 01 02 2 30 30 CV 58 WE Ac IT 37 -0 -[address] ti RI 82 3- 7- 00 PH 90 ve PT 67 20 20 AR RY YL 50 11 11 MA AN IN 1 CY B E # HC L 03 75 01 6 MG TA B RA 68 01 02 2 60 30 CV 58 WE Ac NI 46 -0 -[address] ti TI 20 3- 7- 00 PH 92 ve DI 24 20 20 AR RY NE 80 11 11 MA AN 5 CY B 15 # 0 MG 03 01 TA 6 BL ET WA 37 01 02 2 56 28 CV 58 WE Ac IL 00 -0 -[address] ti OS 00 3- 5- 00 PH 93 ve EC 45 20 20 AR RY 50 11 11 MA AN OT 4 CY B C # 20 .6 03 01 MG 6 TA BL ET WILKERSON 55 02 02 2 9. 30 CV 58 WE Ac MA 11 -0 -[address] ti TR 10 4- 4- 0 PH 52 ve IP 29 20 20 AR RY TA 23 11 11 MA AN N 6 CY B WILKERSON # CC 03 50 01 6 MG TA BL ET AM 00 01 01 2 30 30 CV 58 WE Ac IT 37 -0 -[address] ti RI 82 3- 0- 00 PH 90 ve PT 67 20 20 AR RY YL 50 11 11 MA AN IN 1 CY B E # HC L 03 75 01 6 MG TA B RA 68 01 01 2 60 30 CV 58 WE Ac NI 46 -0 -[address] ti TI 20 3- 0- 00 PH 92 ve DI 24 20 20 AR RY NE 80 11 11 MA AN 5 CY B 15 # 0 MG 03 01 TA 6 BL ET WA 37 01 01 2 56 28 CV 58 WE Ac IL 00 -0 -[address] ti OS 00 3- 9- 00 PH 93 ve EC 45 20 20 AR RY 50 11 11 MA AN OT 4 CY B C # 20 .6 03 01 MG 6 TA BL ET AM 00 01 01 2 30 30 CV 58 WE Ac IT 37 -0 -[address] ti RI 82 3- 3- 00 PH 90 ve PT 67 20 20 AR RY YL 50 11 11 MA AN IN 1 CY B E # HC L 03 75 01 6 MG TA B WILKERSON 55 01 01 0 9. 30 CV 58 WE Ac MA 11 -0 -[address] ti TR 10 3- 3- 0 PH 91 ve IP 29 20 20 AR RY TA 23 11 11 MA AN N 6 CY B WILKERSON # CC 03 50 01 6 MG TA BL ET RA 68 01 01 2 60 30 CV 58 WE Ac NI 46 -0 -[address] ti TI 20 3- 3- 00 PH 92 ve DI 24 20 20 AR RY NE 80 11 11 MA AN 5 CY B 15 # 0 MG 03 01 TA 6 BL ET WA 37 01 01 2 56 28 CV 58 WE Ac IL 00 -0 -[address] ti OS 00 3- 3- 00 PH 93 ve EC 45 20 20 AR RY 50 11 11 MA AN OT 4 CY B C # 20 .6 03 01 MG 6 TA BL ET Results Labs Lab Lab Date Result Refere Interp Status Commen Order Detail nces retati t Range on Bacteria Ur Cult (04-11-2017 09:00) CC XXX NOTAP complet VC-aCnc 017 NOT ed 09:00 APPLICA BLE L Bacteri [id number] complet a XXX 017 07 ed Anaerob 09:00 Escheri e+Aerob dipika e Cult coli (organi sm) SCT ECOL ESCHERI DIPIKA COLI L Comment: >=100,000 CFU/ml Escherichia coli (organism) Bacteri [id number] complet a XXX 017 8 ed Anaerob 09:00 Klebsie e+Aerob lla e Cult pneumon iae (organi sm) SCT KLPN KLEBSIE LLA PNEUMON IAE L Comment: >=100,000 CFU/ml Klebsiella pneumoniae (organism) Differential panel, method unspecified - (04-08-2017 17:20) LYMPH 15 % 10% - Normal complet 017 50% ed 17:20 Platele NORMAL complet ts 017 ed [Presen 17:20 ce] in Blood by Light microsc opy Urinalysis macro (dipstick) panel in Urine (04-08-2017 16:20) Appeara CLOUDY CLEAR complet nce of 017 ed Urine 16:20 Bilirub NEGATIV NEG complet in 017 E ed [Presen 16:20 ce] in Urine by Test strip Erythro NEGATIV NEG complet cytes 017 E ed [Presen 16:20 ce] in Urine Color DARK YELLOW complet of 017 YELLOW ed Urine 16:20 Ketones NEGATIV NEG complet 017 E ed [Presen 16:20 ce] in Urine by Automat ed test strip Leukocy NEGATIV NEG complet te 017 E ed esteras 16:20 e [Presen ce] in Urine by Automat ed test strip Nitrite POSITIV NEG Abnorma complet 017 E l ed [Presen 16:20 ce] in Urine by Test strip Urobili 1.0 NEG complet nogen 017 ed [Presen 16:20 ce] in Urine by Test strip Procedures Procedure DOS Code Location Performer Comment FINAL G9638 [place] [facility] REPORTS 7 MEDICAL W/O DOC IMAGING 1/[place] [address] [place] [facility] HEAD/BRAI 7 MEDICAL N W/O IMAGING CONTRAST ASS MATERIAL BLOOD 39159 [facility] COMPLETE INC INC AUTO&AUTO DIFRNTL WBC COMPREHEN 39604 [facility] SIVE 7 [facility] [place] [address] [facility] INFUSION 7 [facility] THERAPY/P INC INC ROPHYLAXI S /DX 1ST TO 1 HR THERAPEUT 61697 [facility] IC 7 [facility] INJECTION INC INC IV PUSH EACH NEW DRUG COMPREHEN 83568 [facility] SIVE 6 [facility] METABOLIC INC INC PANEL URNLS DIP 96379 [facility] 6 [facility] STICK/TAB INC INC LET REAGENT AUTO MICROSCOP Y BLOOD 39039 [facility] COUNT 6 [facility] COMPLETE INC INC AUTO&[place] [address] [facility] ABDOMEN & 6 [facility] PELVIS INC INC W/O CONTRAST MATERIAL CULTURE 39206 [facility] BACTERIAL 6 [facility] INC INC QUANTTATI VE COLONY COUNT URINE COLLECTIO 55793 [facility] N VENOUS 6 [facility] BLOOD INC INC VENIPUNCT URE COLLECTIO 68129 [facility] N VENOUS 6 N N BLOOD COMMUNTIY COMMUNTIY VENIPUNCT HOSPITA HOSPITA URE BLOOD 24256 [facility] COUNT 6 N N COMPLETE COMMUNTIY COMMUNTIY AUTOMATED HOSPITA HOSPITA BLOOD 29260 [facility] COUNT 6 N N COMPLETE COMMUNTIY COMMUNTIY AUTOMATED HOSPITA HOSPITA INJECTION J3010 [facility] FENTANYL 6 N N CITRATE COMMUNTIY COMMUNTIY 0.1 MG HOSPITA HOSPITA LAPS 26099 [facility] TOTAL 6 N N HYSTERECT COMMUNTIY COMMUNTIY 250 GM/< HOSPITA HOSPITA W/RMVL TUBE/OVAR Y INJECTION J1170 [facility] 6 N N HYDROMORP COMMUNTIY COMMUNTIY OCTAVIO UP HOSPITA HOSPITA TO 4 MG RINGERS J7120 [facility] LACTATE 6 N N INFUSION COMMUNTIY COMMUNTIY UP TO HOSPITA HOSPITA 1000 CC INJECTION J1100 [facility] 6 N N DEXAMETHO COMMUNTIY COMMUNTIY SONE HOSPITA HOSPITA SODIUM PHOSPHATE 1 MG HOSPITAL G0378 [facility] OBSERVATI 6 N N ON COMMUNTIY COMMUNTIY SERVICE HOSPITA [place] [address] [facility] CADEN SURG 6 [facility] PATHOLOGY GROSS&KEV ROSCOPIC EXAM INJECTION J2704 [facility] PROPOFOL 6 N N 10 MG COMMUNTIY COMMUNTIY HOSPITA HOSPITA URNLS DIP 26686 [facility] 6 N N STICK/TAB COMMUNTIY COMMUNTIY LET HOSPITA HOSPITA REAGENT AUTO MICROSCOP Y INJECTION J2270 [facility] MORPHINE 6 N N SULFATE COMMUNTIY COMMUNTIY UP TO 10 HOSPITA HOSPITA MG INJECTION J2550 [facility] 6 N N PROMETHAZ COMMUNTIY COMMUNTIY INE HCL HOSPITA HOSPITA UP TO 50 MG INJECTION J0690 [facility] 6 N N CEFAZOLIN COMMUNTIY COMMUNTIY SODIUM HOSPITA HOSPITA 500 MG INJECTION J2250 [facility] 6 N N MIDAZOLAM COMMUNTIY COMMUNTIY HCL PER HOSPITA HOSPITA 1 MG ANESTHESI 26012 [place] ZIEMBROSK A 6 ANESTHESI I JR INTRAPERI A GROUP TONEAL PS LOWER ABD W/LAPS NOS BLOOD 05688 [facility] TYPING 6 N N SEROLOGIC COMMUNTIY COMMUNTIY RH (D) HOSPITA HOSPITA COLLECTIO 27864 [facility] N VENOUS 6 N N BLOOD COMMUNTIY COMMUNTIY VENIPUNCT HOSPITA HOSPITA URE BLOOD 26789 [facility] TYPING 6 N N SEROLOGIC COMMUNTIY COMMUNTIY ABO HOSPITA HOSPITA ANTIBODY 40169 [facility] SCREEN 6 N RBC EACH COMMUNTIY SERUM HOSPITA TECHNIQUE BASIC 71145 [facility] METABOLIC 6 N PANEL COMMUNTIY CALCIUM HOSPITA TOTAL GONADOTRO 58839 [facility] PIN 6 N CHORIONIC COMMUNTIY HOSPITA QUALITATI VE BLOOD 09818 [facility] COUNT 6 N N COMPLETE COMMUNTIY COMMUNTIY AUTOMATED HOSPITA HOSPITA INJECTION J3010 [facility] FENTANYL 6 N N CITRATE COMMUNTIY COMMUNTIY 0.1 MG HOSPITA HOSPITA INJECTION J1100 [facility] 6 N N DEXAMETHO COMMUNTIY COMMUNTIY SONE HOSPITA HOSPITA SODIUM PHOSPHATE 1 MG RINGERS J7120 [facility] LACTATE 6 N N INFUSION COMMUNTIY COMMUNTIY UP TO HOSPITA HOSPITA 1000 CC ENDOMETRI 02049 [facility] AL BX 6 N N CONJUNCT COMMUNTIY COMMUNTIY W/COLPOSC [place]OSP[place] [address] [facility], GLEN SURG 6 [facility] PATHOLOGY GROSS&KEV ROSCOPIC EXAM COLPOSCOP 58831 ALEXA GRAVES, Y CERVIX 6 MEDICAL III VAG ELTRD SERV FOUNDAT[facility] CONIZATIO N N CERVIX INJECTION J2704 [facility] PROPOFOL 6 N N 10 MG COMMUNTIY COMMUNTIY HOSPITA HOSPITA INJECTION J2710 [facility] 6 N N NEOSTIGMI COMMUNTIY COMMUNTIY NE HOSPITA HOSPITA METHYLSUL FATE UP TO 0.5 MG INJECTION J1885 [facility] 6 N N KETOROLAC COMMUNTIY COMMUNTIY HOSPITA HOSPITA TROMETHAM INE PER 15 MG ANESTHESI 49072 [place] A VAGINAL 6 ANESTHESI A GROUP PROCEDURE PS W/BIOPSY NOS INJECTION J2250 [facility] 6 N N MIDAZOLAM COMMUNTIY COMMUNTIY HCL PER HOSPITA HOSPITA 1 MG BLOOD 34189 [facility] TYPING 6 N N SEROLOGIC COMMUNTIY COMMUNTIY RH (D) HOSPITA HOSPITA COLLECTIO 58212 [facility] N VENOUS 6 N N BLOOD COMMUNTIY COMMUNTIY VENIPUNCT HOSPITA HOSPITA URE ANTIBODY 79870 [facility] SCREEN 6 N N RBC EACH COMMUNTIY COMMUNTIY SERUM HOSPITA HOSPITA TECHNIQUE BLOOD 79165 [facility] TYPING 6 N N SEROLOGIC COMMUNTIY COMMUNTI[place] [address] [facility] 6 [facility] PATHOLOGY GROSS&KVE ROSCOPIC EXAM COLPOSCOP 53675 ALEXA GRAVES, Y CERVIX 6 MEDICAL III JAM BX CERVIX SERV & FOUNDATIO ENDOCRV N CURRETAGE URINE 07371 ALEXA GRAVES, 6 MEDICAL III JAM TEST SERV VISUAL FOUNDATIO COLOR N CMPRSN METHS CYTP 38847 [facility], [facility] CERVICAL/ 6 LLC JUAN MANUEL VAGINAL REQ INTERP PHYSICIAN CYTP C/V 25978 [facility] AUTO THIN 6 LLC JUAN MANUEL LYR PREPJ SCR MNL RESCR PHYS IADNA 66774 [facility] NEISSERIA 6 LLC JUAN MANUEL GONORRHOE AE AMPLIFIED PROBE TQ IADNA 02515 [facility], [facility] CHLAMYDIA 6 LLC JUAN MANUEL TRACHOMAT IS AMPLIFIED PROBE TQ IADNA 79930 [facility], [facility] HUMAN 6 LLC JUAN MANUEL PAPILLOMA VIRUS HIGH-RISK TYPES IAADIADOO 88746 [facility] 6 STREPTOCO CCUS GROUP A RADIOLOGI 87140 [facility] 5 MEDICAL LIEN EXAMINATI IMAGING ON TIBIA ASS & FIBULA 2 VIEWS THERAPEUT 86194 [facility] IC 5 [facility] PROPHYLAC INC INC TIC/DX INJECTION SUBQ/[place] [address] [facility] [place] STEPHANIE MICHAEL ABDOMEN & 5 RADIOLOGY PELVIS W/O CONTRAST MATERIAL ECG 03483 [facility] SHAW JR ROUTINE [address] [place] [address] W/LEAST P 12 LDS I&R ONLY BLOOD 12682 [facility] COUNT [address] [place] [address] AUTO&[place] [address] [facility] LIPASE [address] [place] [address] ANTIBODY 45028 [facility] HELICOBAC [address] [place] [address] PYLORI COLLECTIO 59804 RO[facility] N VENOUS [address] [place] [address] VENIPUNCT URE COMPREHEN 39961 [facility] SIVE [address] [place] [address] PANEL TECHNETIU A9537 [facility] M TC-99M 5 [facility] N DX UP TO 15 MCI INJECTION J2805 [facility] [address] [place] [address] 5 MICROGRAM S HEPATOBIL 21709 RO[facility] LOFTON SYST [address] [place] [address] HOSPITAL [place] [address] [facility] [place] EZEQUIEL ABDOMINAL 4 RADIOLOGY RHO REAL TIME W/IMAGE LIMITED RADEX 54180 [facility] [place] [facility] UPPER GI 4 RADIOLOGY RHO W/WO GLUCAGON/ DELAY IMGES W/[place] [address] [place] ABDOMEN & 4 MEDICAL NICANOR PELVIS IMAGING W/CONTRAS ASS T MATERIAL RADEX 95939 E[facility] EZEQUIEL FOOT 4 RHO RHO COMPLETE MINIMUM 3 VIEWS CRTCHS E0114 [facility] UNDARM 4 OTH THAN WOOD PAIR PAD TIP&[place] [address] BROWN JAM BROWN JAM ABDOMEN & 3 PELVIS W/O CONTRAST MATERIAL RADIOLOGI 85440 E[facility] EZEQUIEL C 3 RHO RHO EXAMINATI ON KNEE 3 VIEWS RADEX HIP [address] L COMPLETE MINIMUM 2 VIEWS RADEX 38679 [facility] SPINE 3 [facility] AL MINIMUM 4 VIEWS RADEX 41879 [facility] RIBS 3 [facility] L 2 VIEWS RADIOLOGI 56823 [facility] C EXAM [address] VIEWS FRONTAL&L ATERAL THORACIC L0220 [facility] RIB BELT 3 CUSTOM FABRICATE D IAADIADOO 69668 [facility] 3 INFLUENZA RADIOLOGI 77867 MARILU MAT MARILU MAT C EXAM 3 CHEST 2 VIEWS FRONTAL&L ATERAL PRESSURIZ 15967 [facility] ED/NONPRE 3 SSURIZED INHALATIO N TREATMENT ADJT TIS 90964 MACRINA SCHRADER TRNS/REAR 1 BUCK BUCK GMT F/C/C/M/N /A/G/H/F 10SQCM/< ANES 60969 [place] CRABTREE INTEG 1 ANESTHESI YANET MUSC & A GROUP NRV HEAD PSC NECK&[place] [address] SURG 1 PATRICIA & PATHOLOGY JUSTOILIAMBIKA GROSS&KEV ROSCOPIC EXAM SPACR A4627 [place] BAG/RESRV 1 CVS CVS OR W/WO [facility], D LLC, D W/METRD DOSE INHAL PRESSURIZ 66046 [facility] ED/NONPRE 1 SSURIZED INHALATIO N TREATMENT URNLS DIP 95783 [facility] 1 [facility] STICK/TAB [facility] LET REAGENT AUTO MICROSCOP Y CULTURE 42034 [facility] [place] BACTERIAL 1 [facility] QUANTTATI VE COLONY COUNT URINE URINLS 82687 [facility] DIP 1 STICK/TAB LET REAGNT NON-AUTO MICRSCPY CT PELVIS 73621 FELLER FELLER W/O [address] [place] [address] FELLER FELLER ABDOMEN 0 EDDIE EDDIE W/O CONTRAST MATERIAL Encounters Encounter Start End Date Code Location Performer Type Date OFFICE 07002 [facility] 7 7 T VISIT 15 MINUTES EMERGENCY 21600 STEVIE AMANDA 7 7 PHYSICIAN JR DEPARTMEN S, [facility] T VISIT HIGH/URGE NT SEVERITY OFFICE 94737 [facility] 7 7 T VISIT 15 MINUTES OFFICE 33964 [facility] 7 7 T VISIT 25 MINUTES [facility] 7 7 [facility] OUTPATIEN [facility] T EMERGENCY 23067 [facility] 7 7 [facility] DEPARTMEN INC T VISIT HIGH/URGE NT SEVERITY EMERGENCY 24581 STEVIE THOMPSON DEPT 7 7 PHYSICIAN VISIT S, [facility] HIGH SEVERITY& THREAT [facility] 6 6 [facility] OUTPATIEN INC T EMERGENCY 17434 STEVIE THOMPSON 6 6 PHYSICIAN DEPARTMEN S, [facility] T VISIT HIGH/URGE NT SEVERITY EMERGENCY 64090 [facility] 6 6 [facility] DEPARTMEN [facility] T VISIT MODERATE SEVERITY [facility] [place] [address] 6 N OUTPATIEN COMMUNTIY T HOSPITA OFFICE 72245 DOV [facility] 6 6 MEDICAL III T VISIT SERV 15 FOUNDATIO MINUTES N [facility] 6 6 N OUTPATIEN COMMUNTIY T HOSPITA OFFICE 37734 [facility] FORTUNEEN 6 6 MEDICAL III T VISIT SERV 15 FOUNDATIO MINUTES N EMERGENCY 86510 STEVIE WAYNE 6 6 PHYSICIAN FOR DEPARTMEN S, [facility] T VISIT MODERATE SEVERITY OFFICE 34344 [facility] 6 6 T VISIT 15 MINUTES [facility] 5 5 [facility] T EMERGENCY 15015 STEVIE GRAFF [facility] 5 5 PHYSICIAN DEPARTMEN S, [facility] T VISIT MODERATE SEVERITY EMERGENCY 49293 [facility] 5 5 [facility] INC T VISIT LOW/MODER SEVERITY OFFICE 03643 [facility] 5 5 T VISIT 15 MINUTES EMERGENCY 85629 [facility] MICHA DEPT 5 5 [facility] VISIT EMERGENCY HIGH PHYS SEVERITY& THREAT FUNJ EMERGENCY 04435 STEVIE DO DEPT 5 5 PHYSICIAN U LIEN VISIT S, [facility] HIGH SEVERITY& THREAT FUN EMERGENCY 34904 [facility] BANDAR 5 5 [facility] EDW DEPARTMEN EMERGENCY T VISIT PHYS HIGH/URGE NT SEVERITY [facility] [place] [facility] 5 5 [facility] T OFFICE 20507 [facility] 5 5 T VISIT 15 MINUTES [facility] [place] [facility] 5 5 [facility] [place] - 4 4 [facility] T OFFICE 83530 [facility] 4 4 T VISIT 15 MINUTES OFFICE 97970 [facility] 4 4 T VISIT 15 MINUTES EMERGENCY 31219 DONNA THOMPSON 4 4 KEV KEV DEPARTMEN T VISIT MODERATE SEVERITY [facility] [place] - 4 4 [facility] T OFFICE 97968 [facility] 4 4 T VISIT 15 MINUTES EMERGENCY 65442 [facility] II [facility] II 3 3 O THO DEPARTMEN T VISIT MODERATE SEVERITY OFFICE 24754 [facility] 3 3 T VISIT 15 MINUTES OFFICE 11661 [facility] 3 3 T VISIT 15 MINUTES OFFICE 36476 [facility] 3 3 T VISIT 15 MINUTES EMERGENCY 46622 [facility] 3 3 DEPARTMEN T VISIT HIGH/URGE NT SEVERITY OFFICE 56753 [facility] 3 3 T VISIT 15 MINUTES [facility] [place] [facility] 3 3 [facility] T OFFICE 56215 [facility] 3 3 T VISIT 15 MINUTES EMERGENCY 10443 ROL[facility]O II ROLANDO II 3 3 O THO DEPARTMEN T VISIT MODERATE SEVERITY [facility] [place] - 3 3 [facility] T OFFICE 76136 [facility] OUTPATI[facility] 3 3 T VISIT 15 MINUTES EMERGENCY 68210 ROLANDO II ROLANDO II 3 3 O THO DEPARTMEN T VISIT MODERATE SEVERITY OFFICE 62901 [facility] 3 3 T VISIT 15 MINUTES OFFICE 59041 [facility] OUTPATIEN 1 1 T VISIT 15 MINUTES OFFICE 01039 MACRINA SCHRADER OUTPATIEN 1 1 BUCK BUCK T NEW 30 MINUTES OFFICE 48994 [facility] OUTPATIEN 1 1 T VISIT 15 MINUTES [facility] [place] [facility] 1 1 [facility] T OFFICE 50964 [facility] OUTPATIEN 1 1 T VISIT 15 MINUTES OFFICE 77525 [facility]PATI[facility] 1 1 T NEW 30 MINUTES OFFICE 01724 REX OUTPATIEN 0 0 HALFWAY HALFWAY T VISIT 15 MINUTES EMERGENCY 10958 COUCH NAVID COUCH NAVID 0 0 DEPARTMEN T VISIT HIGH/URGE NT SEVERITY EMERGENCY 71900 [facility] 0 0 [facility] DEPARTMEN T VISIT HIGH/URGE NT SEVERITY
--- OUTSIDE RECORDS SUMMARY | 2017-05-01 05:02 | External Medical Summary Rpt ---
Author Author , RUTHY BLISS Address Unknown Phone [email or web address] Care Team Providers Care Addiction Psychiatrist Name Role Phone [facility], [facility] Unavailable Unavailable [facility], [facility] Unavailable Unavailable BEINEKE LIEN, BEINEKE Unavailable Unavailable LIEN [facility] Unavailable Unavailable HOSPITAL, [facility] MARSHALL, MARSHALL Unavailable Unavailable BROWN JAM, BROWN JAM Unavailable Unavailable BROWN JAM, BROWN JAM Unavailable Unavailable [facility] PATRICIA & Unavailable Unavailable DUBILIER, [facility] PATRICIA & DUBILIER JORGE TER, JORGE TER Unavailable Unavailable [facility], Unavailable Unavailable [facility] COUCH NAVID, COUCH NAVID Unavailable Unavailable CADEN, CADEN Unavailable Unavailable STACEY, STACEY Unavailable Unavailable STACEY NICANOR, Unavailable Unavailable STACEY NICANOR [facility] # [id number], Unavailable Unavailable [facility] # [id number] ROLANDO II THO, ROLANDO II Unavailable Unavailable THO ROLANDO II THO, ROLANDO II Unavailable Unavailable THO DEPA RAY, DEPA RAY Unavailable Unavailable FELLER EDDIE, FELLER Unavailable Unavailable EDDIE JR AMANDA FULLER, Unavailable Unavailable JR DONNA, DONNA Unavailable Unavailable DONNA KEV, DONNA Unavailable Unavailable KEV DONNA KEV, DONNA Unavailable Unavailable KEV [facility] Unavailable Unavailable HOSPITA, [facility] EZEQUIEL RHO, EZEQUIEL Unavailable Unavailable RHO [facility] Unavailable Unavailable INC, [facility] Unavailable Unavailable HOSPITAL P, [facility], Unavailable Unavailable [facility], Unavailable Unavailable [facility] VANDANA, VANDANA Unavailable Unavailable CARCAMO PERCY, CARCAMO Unavailable Unavailable [facility] PERCY, CARCAMO Unavailable Unavailable [facility] Unavailable Unavailable [facility] Unavailable Unavailable [facility] Unavailable Unavailable GROUP PS, [facility] Unavailable Unavailable LLC, D, [facility], D [facility] Unavailable Unavailable LLC[facility] D, [facility], D [facility] Unavailable Unavailable [facility], [facility] YANET SOTINGEANU LIEN, Unavailable Unavailable SOTINGEANU LIEN [facility] Unavailable Unavailable EMER[facility]Y PH[facility], [facility] ELY, III, ELY, Unavailable Unavailable [...] 2016 Problems Code Diagnosis DOS Provider Status [id number] MIGRAINE 03-18-2017 [facility] W/AURA NOT INTRACT W/O STAT MIGRAINOSUS Z6834 BODY MASS 03-18-2017 [facility] INDEX BMI 34.0-34.9 ADULT I10 ESSENTIAL 03-11-2017 [facility], HYPERTENSIO [facility] N G2581 RESTLESS 03-08-2017 [facility] LEGS SYNDROME J0100 ACUTE 01-07-2017 [facility] MAXILLARY SINUSITIS UNSPECIFIED J302 OTHER 01-07-2017 [facility] SEASONAL ALLERGIC RHINITIS Z6833 BODY MASS 01-07-2017 [facility] INDEX BMI 33.0-33.9 ADULT G59766 MIGRAINE 01-05-2017 [facility] UNS NOT MEDICAL INTRACT W/O IMAGING ASS STATUS MIGRAINOSUS R4182 ALTERED 01-05-2017 [facility] MENTAL MEDICAL STATUS IMAGING ASS UNSPECIFIED R51 HEADACHE 01-05-2017 [facility], PLLC N3000 ACUTE 07-11-2016 [facility] CYSTITIS [facility]ANS, WITHOUT PLLC HEMATURIA N390 URINARY 07-11-2016 [facility] TRACT [facility], INFECTION PLLC SITE NOT SPECIFIED R57111 UNSPECIFIED 07-11-2016 [facility] OVARIAN [facility]YS[facility], CYST RIGHT PLLC SIDE Z720 TOBACCO USE 07-11-2016 [facility] D259 LEIOMYOMA 2016 [facility], OF [facility]TER[facility] UNSPECIFIED N871 MODERATE 2016 [facility] DYSPLASIA [facility] N920 EXCESS & 2016 [facility] FREQUENT [facility] MENSTRUATIO FOUNDATION N W/REGULAR CYCLE N939 ABNORMAL 2016 [facility] VAGINAL [facility] PS BLEEDING UNSPECIFIED D069 CARCINOMA 07-01-2016 [facility] IN SITU OF COMMUNTIY CERVIX HOSPITA UNSPECIFIED K219 GASTRO-ESOP 07-01-2016 [facility] H REFLUX COMMUNTIY DISEASE HOSPITA WITHOUT ESOPHAGITIS A12723 ENCOUNTER 06-21-2016 [facility] FOR OTHER SERV PREPROCEDUR FOUNDATION AL EXAMINATION B977 PAPILLOMAVI 06-04-2016 [facility], LOS CAUSE LLC OF DZ CLASSIFIED ELSEWHERE D071 CARCINOMA 06-04-2016 [facility] OF SERV VULVA FOUNDATION N879 DYSPLASIA 06-04-2016 [facility] OF CERVIX ANESTHESIA UTERI GROUP PS UNSPECIFIED D060 CARCINOMA 06-03-2016 [facility] IN SITU OF COMMUNTIY ENDOCERVIX HOSPITA L36329 UNSPECIFIED 06-03-2016 [facility] ASTHMA COMMUNTIY UNCOMPLICAT HOSPITA ED T41402 HI G SQ 05-28-2016 [facility] INTRAEPITHE SERV LIAL LES ON FOUNDATION CYTOL SMEAR CERV Z6831 BODY MASS 05-28-2016 [facility] INDEX BMI 31.0-31.9 ADULT Z3202 ENCOUNTER 05-15-2016 [facility] FOR SERV FOUNDATION TEST RESULT NEGATIVE R95010 CERV HIGH 05-02-2016 [facility], RSK [facility]UMAN LLC PAPILLOMAVI LOS DNA TEST POS G85578 ENCOUNTER 05-02-2016 [facility], MANAGER CARD EXAM LLC GENERAL RTN W/ABNORMAL FIND Z113 ENCOUNTER 05-02-2016 [facility], SCREEN LLC INFECTIONS SEXL MODE TRANSMISSN R1031 RIGHT LOWER 05-01-2016 [facility], PAIN PLLC J020 STREPTOCOCC 10-31-2015 [facility] AL PHARYNGITIS Z6828 BODY MASS 10-31-2015 [facility] INDEX BMI 28.0-28.9 ADULT H78723 PAIN IN 05-29-2015 [facility] LEFT LOWER MEDICAL LEG IMAGING ASS R2242 LOCALIZED 05-29-2015 [facility] SWELLING MEDICAL MASS AND IMAGING ASS LUMP LEFT LOWER LIMB F65132M SPRAIN UNS 05-29-2015 [facility] LIGAMENT [facility], LEFT ANKLE PLL INITIAL ENCOUNTER N8320 UNSPECIFIED 05-27-2015 [facility] OVARIAN CYSTS 80563 DEHYDRATION 03-09-2015 [facility], [facility] 2768 HYPOPOTASSE 03-09-2015 [facility] AUGUST [facility], PLLC 9924 HEAT 03-09-2015 [facility] P DEPLETION 9925 HEAT 03-09-2015 [facility] RUIZ, PHYSICIANS, [facility] UNSPECIFIED E9000 ACCIDENT 03-09-2015 [facility] P HEAT WEATHER CONDITIONS 0340 STREPTOCOCC 09-07-2014 [facility] SORE N EMERGENCY THROAT PHYS 3829 UNSPECIFIED 09-07-2014 [facility] OTITIS N EMERGENCY MEDIA PHYS 38713 ABDOMINAL 08-25-2014 [facility], [facility] UNSPECIFIED HOSPITAL SITE 79025 REFLUX 08-24-2014 [facility] ESOPHAGITIS 07998 ABDOMINAL 08-23-2014 [facility] RIGHT [facility] QUADRANT 7871 HEARTBURN 07-05-2014 [facility] 16915 ABDOMINAL 07-05-2014 [facility] [place] PAIN RIGHT RADIOLOGY UPPER QUADRANT 5533 DIAPHRAGMAT 06-25-2014 [facility] BRANDON W/O MEDICAL MENTION IMAGING ASS OBSTRUCTION /GANGREN 5990 URINARY 04-20-2014 [facility] TRACT INFECTION SITE NOT SPECIFIED 7242 LUMBAGO 03-01-2014 DONNA KEV 7244 THORACIC/NINO 03-01-2014 [facility] MBOSACRAL NEURITIS/RA DICULITIS UNSPEC 7295 PAIN IN 09-02-2013 [facility] SOFT TISSUES OF LIMB 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 9597 INJURY 09-02-2013 [facility] OTHER&UNSPE CIFIED KNEE LEG ANKLE&FOOT 11242 ABDOMINAL 04-25-2013 [facility] PAIN OTHER SPECIFIED SITE V1301 PERSONAL 04-25-2013 ROL[facility]O II THO HISTORY OF URINARY CALCULI 54596 PATELLAR 04-20-2013 [facility] TENDINITIS 4779 ALLERGIC 02-03-2013 [facility] RHINITIS CAUSE UNSPECIFIED 7840 HEADACHE 02-03-2013 [facility] 85518 MIGRAINE 02-02-2013 [facility]ACK[facility] UNSP W/O INTRACT W/O STATUS MIGRAINOSUS 95233 PAIN IN 11-26-2012 [facility] JOINT PELVIC REGION AND THIGH 7265 ENTHESOPATH 11-26-2012 [facility] Y OF HIP REGION 02725 UNSPECIFIED 10-26-2012 ROLANDO II THO TEMPOROMAND IBULAR JOINT DISORDERS 15959 ARTHRALGIA 10-26-2012 ROL[facility]O II THO OF TEMPOROMAND IBULAR JOINT 43176 SHORTNESS 07-31-2012 [facility] 7862 COUGH 07-31-2012 [facility] 89691 CHEST PAIN 07-31-2012 MARILU MAT UNSPECIFIED 486 PNEUMONIA, 07-30-2012 [place] [facility] ORGANISM UNSPECIFIED 4871 INFLUENZA 07-30-2012 [facility] WITH OTHER RESPIRATORY MANIFESTATI ONS 79637 ASTHMA, 07-27-2012 ROLANDO II THO UNSPECIFIED , UNSPECIFIED STATUS 4660 ACUTE 07-24-2012 [facility] BRONCHITIS 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 2298 BENIGN 12-19-2010 SCH[facility] BUCK NEOPLASM OF OTHER SPECIFIED SITES 75572 OTHER 12-19-2010 [facility] SEBORRHEIC PATRICIA & KERATOSIS DUBILIER 7099 UNSPECIFIED 12-19-2010 [place] [facility] OF GROUP PSC SKIN&SUBCUT ANEOUS TISSUE 44060 INTRINSIC 12-12-2010 [facility] AST[facility], D 80123 ESOPHAGEAL 11-28-2010 SCHRADER BUCK REFLUX 7881 DYSURIA 11-14-2010 [facility] 41085 UNS 05-18-2010 [facility] GASTRITIS&G OBIE ASTRODUODIT IS W/O MENTION HEMORR V7231 ROUTINE 05-18-2010 [facility] GYNECOLOGIC O[facility]E AL EXAMINATION 15064 ACUT 04-02-2010 [facility] PYELONEPHRI TIS W/O LES RENAL MEDULRY NECROS [...] 17 17 74 E 9 91 CV MO S OP PH AR 50 MA CY [...] 17 17 74 E 9 91 CV MO S OP PH AR 50 MA CY MC G LL SP C, RA Y DB A CV S PH AR MA CY #3 01 6 MO 65 06 07 15 4 00 KE [...] PH AR MC MA G CY IN MEIJA LL LE C, R DB A CV [...] AR MA CY #3 01 6 MO 65 12 02 15 4 00 KE [...] AR MA CY #3 01 6 MO 65 12 01 15 4 00 KE [...] 12 01 14 7 00 KE Ac MO 86 -2 -2 .0 00 NT ti OF 20 2- 7- 00 UC ve LO 07 20 20 99 [place] XA 70 16 17 00 CI 1 96 CV N S HC PH L AR 50 MA 0 CY MG LL TA C, B DB A CV S PH AR MA CY #3 01 6 MO 65 12 01 15 4 00 KE [...] 16 17 61 E 9 19 CV MO S OP PH AR 50 MA CY [...] MG 03 01 TA 6 BL ET MO 37 09 11 11 56 28 CV [...] 11 MA AN E 9 CY B MO # OP 03 50 01 6 MC [...] 03 01 MG 6 TA BL ET MO 37 09 10 11 56 28 CV [...] 11 MA AN E 9 CY B MO # OP 03 50 01 6 MC [...] 03 75 01 6 MG TA B MO 37 09 09 11 56 28 CV [...] 50 01 6 MG TA BL ET MO 37 02 08 5 56 28 CV [...] MG 03 01 TA 6 BL ET MO 37 02 07 5 56 28 CV [...] MG 03 01 TA 6 BL ET MO 37 02 06 5 56 28 CV [...] 60 4- 4- 00 ON 31 ve MO 00 20 20 RY ED [address] AN NI 3 UG B SO LO IN NE C 4 MG DO SE PK MO 37 02 05 5 56 28 CV [...] 0 6. 3 CV 60 WE Ac MO 25 -2 -[address] [...] MG 03 01 TA 6 BL ET MO 37 02 04 5 56 28 CV [...] MG 03 01 TA 6 BL ET MO 37 02 03 5 56 28 CV [...] MG 03 01 TA 6 BL ET MO 37 01 02 2 56 28 CV [...] MG 03 01 TA 6 BL ET MO 37 01 01 2 56 28 CV [...] MG 03 01 TA 6 BL ET MO 37 01 01 2 56 28 CV [...] NOT ed 09:00 APPLICA BLE L Bacteri [id number] complet a XXX 017 07 ed Anaerob 09:00 Escheri e+Aerob dipika e Cult coli (organi sm) SCT ECOL ESCHERI DIPIKA COLI L Comment: >=100,000 CFU/ml Escherichia coli (organism) Bacteri [id number] complet a XXX 017 8 ed Anaerob [...] DOS Code Location Performer Comment FINAL G9638 [facility] ST[facility] REPORTS 7 MEDICAL W/O DOC IMAGING 1/[place] [address] [facility] STACE[facility] HEAD/BRAI 7 MEDICAL N W/O IMAGING CONTRAST ASS MATERIAL BLOOD 57329 [facility] COUNT 7 [facility] COMPLETE INC INC AUTO&AUTO DIFRNTL WBC COMPREHEN 39584 [facility] SIVE 7 [facility] [place] [address] [facility] INFUSION 7 [facility] THERAPY/P INC INC ROPHYLAXI S /DX 1ST TO 1 HR THERAPEUT 13206 [facility] IC 7 [facility] INJECTION INC INC IV PUSH EACH NEW DRUG COMPREHEN 21701 [facility] SIVE 6 [facility] METABOLIC INC INC PANEL URNLS DIP 08591 [facility] 6 [facility] STICK/TAB INC INC LET REAGENT AUTO MICROSCOP Y BLOOD 61496 [facility] COUNT 6 [facility] COMPLETE INC INC AUTO&[place] [address] [facility] ABDOMEN & 6 [facility] PELVIS INC INC W/O CONTRAST MATERIAL CULTURE 72268 [facility] BACTERIAL 6 [facility] INC INC QUANTTATI VE COLONY COUNT URINE COLLECTIO 93844 [facility] N VENOUS 6 MEM HOS[facility]OSP BLOOD INC INC VENIPUNCT URE COLLECTIO 38483 [facility] N VENOUS 6 N N BLOOD COMMUNTIY COMMUNTIY VENIPUNCT HOSPITA HOSPITA URE BLOOD 01857 [facility] COUNT 6 N N COMPLETE COMMUNTIY COMMUNTIY AUTOMATED HOSPITA HOSPITA BLOOD 43667 [facility] COUNT 6 N N COMPLETE COMMUNTIY COMMUNTIY AUTOMATED HOSPITA HOSPITA INJECTION J3010 [facility] FENTANYL 6 N N CITRATE COMMUNTIY COMMUNTIY 0.1 MG HOSPITA HOSPITA LAPS 59816 [facility] TOTAL 6 N N HYSTERECT COMMUNTIY COMMUNTIY 250 GM/< HOSPITA HOSPITA W/RMVL TUBE/OVAR Y INJECTION J1170 [facility] 6 N N HYDROMORP COMMUNTIY COMMUNTIY OCTAVIO UP HOSPITA HOSPITA TO 4 MG RINGERS J7120 [facility] LACTATE 6 N N INFUSION COMMUNTIY COMMUNTIY UP TO HOSPITA HOSPITA 1000 CC INJECTION J1100 [facility] 6 N N DEXAMETHO COMMUNTIY COMMUNTIY SONE HOSPITA HOSPITA SODIUM PHOSPHATE 1 MG HOSPITAL G0378 [facility] OBSERVATI 6 N N ON COMMUNTIY COMMUNTIY SERVICE HOSPITA HOSPITA [place]EL V [address] [facility], CADEN SURG 6 [facility] PATHOLOGY GROSS&KEV ROSCOPIC EXAM INJECTION J2704 [facility] PROPOFOL 6 N N 10 MG COMMUNTIY COMMUNTIY HOSPITA HOSPITA URNLS DIP 39799 [facility] 6 N N STICK/TAB COMMUNTIY COMMUNTIY LET HOSPITA HOSPITA REAGENT AUTO MICROSCOP Y INJECTION J2270 [facility] MORPHINE 6 N N SULFATE COMMUNTIY COMMUNTIY UP TO 10 HOSPITA HOSPITA MG INJECTION J2550 [facility] 6 N N PROMETHAZ COMMUNTIY COMMUNTIY INE HCL HOSPITA HOSPITA UP TO 50 MG INJECTION J0690 [facility] 6 N N CEFAZOLIN COMMUNTIY COMMUNTIY SODIUM HOSPITA HOSPITA 500 MG INJECTION J2250 [facility] 6 N N MIDAZOLAM COMMUNTIY COMMUNTIY HCL PER HOSPITA HOSPITA 1 MG ANESTHESI 65090 [facility] ZIEMBROSK A 6 ANESTHESI I JR INTRAPERI A GROUP TONEAL PS LOWER ABD W/LAPS NOS BLOOD 89193 [facility] TYPING 6 N N SEROLOGIC COMMUNTIY COMMUNTIY RH (D) HOSPITA HOSPITA COLLECTIO 29170 [facility] N VENOUS 6 N N BLOOD COMMUNTIY COMMUNTIY VENIPUNCT HOSPITA HOSPITA URE BLOOD 23456 [facility] TYPING 6 N N SEROLOGIC COMMUNTIY COMMUNTIY ABO HOSPITA HOSPITA ANTIBODY 00047 [facility] SCREEN 6 N RBC EACH COMMUNTIY SERUM HOSPITA TECHNIQUE BASIC 18091 [facility] METABOLIC 6 N PANEL COMMUNTIY CALCIUM HOSPITA TOTAL GONADOTRO 44566 [facility] PIN 6 N CHORIONIC COMMUNTIY HOSPITA QUALITATI VE BLOOD 78026 [facility] COUNT 6 N N COMPLETE COMMUNTIY COMMUNTIY AUTOMATED HOSPITA HOSPITA INJECTION J3010 [facility] FENTANYL 6 N N CITRATE COMMUNTIY COMMUNTIY 0.1 MG HOSPITA HOSPITA INJECTION J1100 [facility] 6 N N DEXAMETHO COMMUNTIY COMMUNTIY SONE HOSPITA HOSPITA SODIUM PHOSPHATE 1 MG RINGERS J7120 [facility] LACTATE 6 N N INFUSION COMMUNTIY COMMUNTIY UP TO HOSPITA HOSPITA 1000 CC ENDOMETRI 79296 [facility] AL BX 6 N N CONJUNCT COMMUNTIY COMMUNTIY W/COLPOSC HOSPITA [place]OSPITA [place]Y LEVEL V [address] [facility] [place] SURG 6 [facility] PATHOLOGY GROSS&KEV ROSCOPIC EXAM COLPOSCOP 77264 ALEXA GRAVES, Y CERVIX 6 MEDICAL III VAG ELTRD SERV FOUNDATIO CONIZATIO N N CERVIX INJECTION J2704 [facility] PROPOFOL 6 N N 10 MG COMMUNTIY COMMUNTIY HOSPITA HOSPITA INJECTION J2710 [facility] 6 N N NEOSTIGMI COMMUNTIY COMMUNTIY NE HOSPITA HOSPITA METHYLSUL FATE UP TO 0.5 MG INJECTION J1885 [facility] 6 N N KETOROLAC COMMUNTIY COMMUNTIY HOSPITA HOSPITA TROMETHAM INE PER 15 MG ANESTHESI 79997 [facility] [place] A VAGINAL 6 ANESTHESI A GROUP PROCEDURE PS W/BIOPSY NOS INJECTION J2250 [facility] 6 N N MIDAZOLAM COMMUNTIY COMMUNTIY HCL PER HOSPITA HOSPITA 1 MG BLOOD 96462 [facility] TYPING 6 N N SEROLOGIC COMMUNTIY COMMUNTIY RH (D) HOSPITA HOSPITA COLLECTIO 93118 [facility] N VENOUS 6 N N BLOOD COMMUNTIY COMMUNTIY VENIPUNCT HOSPITA HOSPITA URE ANTIBODY 54045 [facility] SCREEN 6 N N RBC EACH COMMUNTIY COMMUNTIY SERUM HOSPITA HOSPITA TECHNIQUE BLOOD 79740 [facility] TYPING 6 N N SEROLOGIC COMMUNTIY COMMUNTIY [place] [address] [facility], [facility] SURG 6 [facility] PATHOLOGY GROSS&KEV ROSCOPIC EXAM COLPOSCOP 91329 ALEXA GRAVES, Y CERVIX 6 MEDICAL III JAM BX CERVIX SERV & FOUNDATIO [place]CR[place] 14504 ALEXA GRAVES, 6 MEDICAL III JAM TEST SERV VISUAL FOUNDATIO COLOR N CMPRSN METHS CYTP 81375 [facility], [facility] CERVICAL/ 6 LLC JUAN MANUEL VAGINAL REQ INTERP PHYSICIAN CYTP C/V 80914 [facility] AUTO THIN 6 LLC JUAN MANUEL LYR PREPJ SCR MNL RESCR PHYS IADNA 07797 [facility] NEISSERIA 6 LLC JUAN MANUEL GONORRHOE AE AMPLIFIED PROBE TQ IADNA 08956 [facility] CHLAMYDIA 6 LLC JUAN MANUEL TRACHOMAT IS AMPLIFIED PROBE TQ IADNA 54404 [facility], [facility] HUMAN 6 LLC JUAN MANUEL PAPILLOMA VIRUS HIGH-RISK TYPES IAADIADOO 21512 [facility] 6 STREPTOCO CCUS GROUP A RADIOLOGI 49065 [facility] 5 MEDICAL LIEN EXAMINATI IMAGING ON TIBIA ASS & FIBULA 2 VIEWS THERAPEUT 16921 [facility] IC 5 [facility] PROPHYLAC INC INC TIC/DX INJECTION SUBQ/[place] [address] [facility] STEPHANIE MICHAEL ABDOMEN & 5 RADIOLOGY PELVIS W/O CONTRAST MATERIAL ECG 35819 [facility] SHAW JR ROUTINE [address] [place] [address] W/LEAST P 12 LDS I&R ONLY BLOOD 35404 ROLLY LOFTON COUNT [address] [place] [address] AUTO&[place] [address] RO[facility] LOFTON LIPASE [address] [place] [address] ANTIBODY 19287 ROLLY LOFTON HELICOBAC [address] [place] [address] PYLORI COLLECTIO 74545 ROLLY LOFTON N VENOUS [address] [place] [address] VENIPUNCT URE COMPREHEN 31696 ROLLY LOFTON SIVE [address] [place] [address] PANEL TECHNETIU A9537 RO[facility] LOFTON M TC-99M 5 [facility] N DX UP TO 15 MCI INJECTION J2805 ROLLY LOFTON [address] [place] [address] 5 MICROGRAM S HEPATOBIL 50468 ROLLY LOFTON SYST [address] [place] [address] HOSPITAL GB W/[place] [address] [facility] [place] [facility] ABDOMINAL 4 RADIOLOGY RHO REAL TIME W/IMAGE LIMITED RADEX 27242 [facility] UPPER GI 4 RADIOLOGY RHO W/WO GLUCAGON/ DELAY IMGES W/[place] [address] [facility] ABDOMEN & 4 MEDICAL NICANOR PELVIS IMAGING W/CONTRAS ASS T MATERIAL RADEX 31579 [facility] EZEQUI[facility] FOOT 4 RHO RHO COMPLETE MINIMUM 3 VIEWS CRTCHS E0114 [facility] UNDARM 4 OTH THAN WOOD PAIR PAD TIP&[place] [address] [facility] ABDOMEN & 3 PELVIS W/O CONTRAST MATERIAL RADIOLOGI 14182 [facility] EZEQUI[facility] C 3 RHO RHO EXAMINATI ON KNEE 3 VIEWS RADEX HIP [address] COMPLETE MINIMUM 2 VIEWS RADEX 96147 [facility] SPINE 3 [facility] AL MINIMUM 4 VIEWS RADEX 82395 [facility] RIBS 3 [facility] L 2 VIEWS RADIOLOGI 13731 [facility] C EXAM [address] VIEWS FRONTAL&L ATERAL THORACIC L0220 [facility] RIB BELT 3 CUSTOM FABRICATE D IAADIADOO 02252 [facility] 3 INFLUENZA RADIOLOGI 09744 [facility] MAT MARILU MAT C EXAM 3 CHEST 2 VIEWS FRONTAL&L ATERAL PRESSURIZ 41536 [facility] ED/NONPRE 3 SSURIZED INHALATIO N TREATMENT ADJT TIS 42875 MACRINA SCHRADER TRNS/REAR 1 BUCK BUCK GMT F/C/C/M/N /A/G/H/F 10SQCM/< ANES 64705 [place] CRABTREE INTEG 1 ANESTHESI YANET MUSC & A GROUP NRV HEAD PSC NECK&[place] [address] SURG 1 PATRICIA & PATHOLOGY JUSTOILIAMBIKA GROSS&KEV ROSCOPIC EXAM SPACR A4627 [place] BAG/RESRV 1 [facility] OR W[facility]WO PHARMACY PHARMACY [facility]ASK LLC, D LLC, D W/METRD DOSE INHAL PRESSURIZ 32573 [facility] ED/NONPRE 1 SSURIZED INHALATIO N TREATMENT URNLS DIP 50111 ROLLY LOFTON 1 [facility] STICK/TAB [facility] LET REAGENT AUTO MICROSCOP Y CULTURE 30632 CELENASSM REHABMELBA AFTON BACTERIAL 1 [facility] QUANTTATI VE COLONY COUNT URINE URINLS 50691 [facility] DIP 1 STICK/TAB LET REAGNT NON-AUTO MICRSCPY CT PELVIS 03983 FELLER FELLER W/O [address] [place] [address] FELLER FELLER ABDOMEN 0 EDDIE EDDIE W/O CONTRAST MATERIAL Encounters Encounter Start End Date Code Location Performer Type Date OFFICE 97424 [facility] 7 7 T VISIT 15 MINUTES EMERGENCY 82251 STEVIE AMANDA 7 7 PHYSICIAN JR DEPARTMEN S, [facility] T VISIT HIGH/URGE NT SEVERITY OFFICE 59582 [facility] 7 7 T VISIT 15 MINUTES OFFICE 10451 [facility] 7 7 T VISIT 25 MINUTES [facility] 7 7 [facility] OUTPATIEN [facility] T EMERGENCY 87645 [facility] 7 7 [facility] DEPARTMEN INC T VISIT HIGH/URGE NT SEVERITY EMERGENCY 69089 STEVIE THOMPSON DEPT 7 7 PHYSICIAN VISIT S, [facility] HIGH SEVERITY& THREAT [facility] [place] [facility] 6 [facility] T EMERGENCY 10149 STEVIE THOMPSON 6 6 PHYSICIAN DEPARTMEN S, [facility] T VISIT HIGH/URGE NT SEVERITY EMERGENCY 04058 [place] 6 6 [facility] DEPARTMEN [facility] T VISIT MODERATE SEVERITY [facility] [place] [address] 6 N OUTPATIEN COMMUNTIY T HOSPITA OFFICE 73588 DVO FORT[facility] 6 6 MEDICAL III T VISIT SERV 15 FOUNDATIO MINUTES N [facility]OSP[facility] 6 6 N OUTPATIEN COMMUNTIY T HOSPITA OFFICE 35076 MARIL[facility] FORTUNEEN 6 6 MEDICAL III T VISIT SERV 15 FOUNDATIO MINUTES N EMERGENCY 92875 STEVIE WAYNE 6 6 PHYSICIAN FOR DEPARTMEN S, [facility] T VISIT MODERATE SEVERITY OFFICE 33203 [facility] 6 6 T VISIT 15 MINUTES [facility] [place] [facility] 5 5 [facility] T EMERGENCY 78642 STEVIE GRAFF [facility] 5 5 PHYSICIAN DEPARTMEN S, [facility] T VISIT MODERATE SEVERITY EMERGENCY 52425 [place] 5 5 [facility] INC T VISIT LOW/MODER SEVERITY OFFICE 08345 [facility] 5 5 T VISIT 15 MINUTES EMERGENCY 80729 [facility] MICHA DEPT 5 5 [facility] VISIT EMERGENCY HIGH PHYS SEVERITY& THREAT FUNJ EMERGENCY 03613 STEVIE DO DEPT 5 5 PHYSICIAN U LIEN VISIT S, [facility] HIGH SEVERITY& THREAT FUN EMERGENCY 71736 [facility] BANDAR 5 5 [facility] EDW DEPARTMEN EMERGENCY T VISIT PHYS HIGH/URGE NT SEVERITY [facility] [place] [facility] 5 5 [facility] [place] 16813 [facility] 5 5 T VISIT 15 MINUT[facility] [place] [facility] 5 5 [facility] [place] - 4 4 [facility] OFF[facility] 05706 [facility] 4 4 T VISIT 15 MINUTES OFFICE 24149 [facility] 4 4 T VISIT 15 MINUTES EMERGENCY 68922 DONNA THOMPSON 4 4 KEV KEV DEPARTMEN T VISIT MODERATE SEVERITY [facility] [place] [facility] 4 4 [facility] OFFICE 86730 [facility] 4 4 T VISIT 15 MINUTES EMERGENCY 60289 [facility] II [facility] II 3 3 O THO DEPARTMEN T VISIT MODERATE SEVERITY OFFICE 35172 [facility] 3 3 T VISIT 15 MINUTES OFFICE 67691 [facility] 3 3 T VISIT 15 MINUTES OFFICE 41989 [facility] 3 3 T VISIT 15 MINUTES EMERGENCY 04411 [facility] 3 3 DEPARTMEN T VISIT HIGH/URGE NT SEVERITY OFFICE 84801 [facility] 3 3 T VISIT 15 MINUTES [facility] [place] [facility] 3 3 [facility] [place] [facility] OFF[facility] 91132 [facility] 3 3 T VISIT 15 MINUTES EMERGENCY 78224 [facility]OL[place] II ROLANDO II 3 3 O THO DEPARTMEN T VISIT MODERATE SEVERITY [facility] [place] [facility] 3 3 [facility] [place] [facility] OFFICE 95965 [facility] 3 3 T VISIT 15 MINUTES EMERGENCY 18269 [place] II [place] II 3 3 O THO DEPARTMEN T VISIT MODERATE SEVERITY OFFICE 80269 [facility] 3 3 T VISIT 15 MINUTES OFFICE 10084 [place] [facility] 1 1 T VISIT 15 MINUTES OFFICE 24496 [facility] SCHRADER OUTPATIEN 1 1 [facility] T NEW 30 MINUTES OFFICE 45474 [place] [facility] [facility] [facility] 1 1 T VISIT 15 MINUT[facility] [place] [facility] 1 1 [facility] [place] [facility] OFF[facility] 95717 [place] [facility] [facility] [facility] 1 1 T VISIT 15 MINUTES OFFICE [id number] [place] [facility] OUT[facility]IEN 1 1 T NEW 30 MINUTES OFFICE [id number] [facility] OUT[facility] 0 0 RETIREMENT RETIREMENT T VISIT 15 MINUTES EMERGENCY [id number] COUCH NAVID COUCH NAVID 0 0 DEPARTMEN T VISIT HIGH/URGE NT SEVERITY EMERGENCY [id number] [facility] 0 0 [facility] DEPARTMEN T VISIT HIGH/URGE NT SEVERITY
--- OUTSIDE RECORDS SUMMARY | 2017-05-01 05:08 | External Medical Summary Rpt ---
Author Author , RUTHY Organization RUTHY Address Unknown Phone [email or web address] Providers Care Locksmith Helper Name Role Phone [facility], [facility] Unavailable Unavailable [facility], [facility] Unavailable Unavailable [facility] Unavailable Unavailable [facility], [facility] MARSHALL, MARSHALL Unavailable Unavailable BROWN JAM, BROWN JAM Unavailable Unavailable BROWN JAM, BROWN JAM Unavailable Unavailable CHIPPS PATRICIA & Unavailable Unavailable DUBILIER, CHIPPS PATRICIA & DUBILIER JORGE TER, JORGE TER Unavailable Unavailable [facility], Unavailable Unavailable [facility] COUCH NAVID, COUCH NAVID Unavailable Unavailable CADEN, CADEN Unavailable Unavailable STACEY, STACEY Unavailable Unavailable STACEY NICANOR, Unavailable Unavailable STACEY NICANOR [facility] # [id number], Unavailable Unavailable [facility] # [id number] ROLANDO II THO, ROLANDO II Unavailable Unavailable THO ROLANDO II THO, ROLANDO II Unavailable Unavailable THO DEPA RAY, DEPA RAY Unavailable Unavailable FELLER EDDIE, FELLER Unavailable Unavailable EDDIE TREASURE, , TREASURE, Unavailable Unavailable JR DONNA, DONNA Unavailable Unavailable DONNA KEV, DONNA Unavailable Unavailable KEV DONNA KEV, DONNA Unavailable Unavailable KEV [facility] Unavailable Unavailable [facility], [facility] EZEQUIEL RHO, EZEQUIEL Unavailable Unavailable RHO [facility] Unavailable Unavailable INC, [facility] Unavailable Unavailable HOSPITAL P, [facility] P CENTENO, CENTENO Unavailable Unavailable [facility], Unavailable Unavailable [facility], Unavailable Unavailable [facility] VANDANA, VANDANA Unavailable Unavailable [facility], CARCAMO Unavailable Unavailable [facility], YAMPA Unavailable Unavailable [facility] LEYVAAMBIKA JACKSON, GORDON JACKSON Unavailable Unavailable LEYVAAMBIKA JACKSON, GORDON JACKSON Unavailable Unavailable [facility] Unavailable Unavailable GROUP PS, [facility] Unavailable Unavailable LLC, D, [facility], D [facility] Unavailable Unavailable LLC, D, [facility], D [facility] Unavailable Unavailable [facility], [facility] Unavailable Unavailable [facility], [facility] Un[facility], [facility] SCHRADER BUCK, SCHRADER Unavailable Unavailable BUCK SCHRADER BUCK, SCHRADER Unavailable Unavailable BUCK VALERIA JR DWI, VALERIA Unavailable Unavailable JR DWI STEFFANY JUAN MANUEL, Unavailable Unavailable STEFFANY JUAN MANUEL [facility], NWAUCHE Unavailable Unavailable [facility], [facility] Unavailable Un[facility], Unavailable Unavailable PLL[facility], [facility] PICKLESIMER JR PEDRO, Unavailable Unavailable [facility] SADEK MOH, SADEK MOH Unavailable Unavailable SCALF ALEX, SCALF ALEX Unavailable Unavailable CRABTREE YANET, CRABTREE Unavailable Unavailable YANET SOTINGEANU LIEN, Unavailable Unavailable S[facility]EANU LIEN [facility] Un[facility], [facility] ELY, III, ELY, Unavailable Unavailable III ELY, III JAM, Unavailable Unavailable ELY, III JAM WALKER FOR, WALKER Unavailable Unavailable FOR WEST, WEST Unavailable Unavailable WEST, WEST Unavailable Unavailable [facility], [facility] Unavailable Unavailable [facility], [facility] Unavailable Unavailable BANDAR EDW, BANDAR Unavailable Unavailable EDW [facility], Unavailable Unavailable [facility] ALEAH RUSH, Unavailable Unavailable ALEAH RUSH MARLIU MAT, MARILU MAT Unavailable Unavailable MARILU MAT, MARILU MAT Unavailable Unavailable Purpose Continuity of Care Document - 04-02-2010 through 2016 Problems Code Diagnosis DOS Provider Status [id number] MIGRAINE 03-18-2017 [facility] W/AURA NOT INTRACT W/O STAT MIGRAINOSUS Z6834 BODY MASS 03-18-2017 [facility] INDEX BMI 34.0-34.9 ADULT I10 ESSENTIAL 03-11-2017 [facility], HYPERTENSIO [facility] N G2581 RESTLESS 03-08-2017 [facility] LEGS SYNDROME J0100 ACUTE 01-07-2017 [facility] MAXILLARY SINUSITIS UNSPECIFIED J302 OTHER 01-07-2017 [facility] SEASONAL ALLERGIC RHINITIS Z6833 BODY MASS 01-07-2017 [facility] INDEX BMI 33.0-33.9 ADULT [id number] MIGRAINE 01-05-2017 [facility] NOT MEDICAL INTRACT W/O IMAGING ASS STATUS MIGRAINOSUS R4182 ALTERED 01-05-2017 [facility] UNSPECIFIED R51 HEADACHE 01-05-2017 [facility], PLLC N3000 ACUTE 07-11-2016 [facility] CYSTITIS [facility], WITHOUT PLL HEMATURIA N390 URINARY 07-11-2016 [facility] TRACT [facility], INFECTION PLLC SITE NOT SPECIFIED Z72769 UNSPECIFIED 07-11-2016 [facility] OVARIAN [facility], CYST RIGHT PLLC SIDE Z720 TOBACCO USE 07-11-2016 [facility] D259 LEIOMYOMA 2016 [facility] OF [facility] UNSPECIFIED N871 MODERATE 2016 [facility] DYSPLASIA [facility] N920 EXCESS & 2016 [facility]QU[facility] MENSTRUATIO [facility]OUNDATION N W/REGULAR CYCLE N939 ABNORMAL 2016 [facility] PS BLEEDING UNSPECIFIED D069 CARCINOMA 07-01-2016 [facility] COMM[facility]TIY CERVIX HOSPITA UNSPECIFIED K219 GASTRO-ESOP 07-01-2016 [facility] REFLUX COMM[facility]TIY DISEASE HOSPITA WITHOUT ESOPHAGITIS T38153 ENCOUNTER 06-21-2016 [facility] FOR OTHER SERV PREPROCEDUR FOUNDATION AL EXAMINATION B977 PAPILLOMAVI 06-04-2016 [facility], LOS CAUSE LLC OF DZ CLASSIFIED ELSEWHERE D071 CARCINOMA 06-04-2016 [facility] SERV VULVA FOUNDATION N879 DYSPLASIA 06-04-2016 [place] [facility] ANESTHESIA UTERI GROUP PS UNSPECIFIED D060 CARCINOMA 06-03-2016 [facility] COMMUNTIY ENDOCERVIX HOSPITA A76596 UNSPECIFIED 06-03-2016 [facility] ASTHMA COMMUNTIY UNCOMPLICAT HOSPITA ED K72859 HI G SQ 05-28-2016 [facility] INTRAEPITHE SERV LIAL LES ON FOUNDATION CYTOL SMEAR CERV Z6831 BODY MASS 05-28-2016 [facility] INDEX BMI 31.0-31.9 ADULT Z3202 ENCOUNTER 05-15-2016 [facility] TEST RESULT NEGATIVE [id number] CERV HIGH 05-02-2016 [facility] RSK HUMAN LLC PAPILLOMAVI LOS DNA TEST POS S39336 ENCOUNTER 05-02-2016 [facility], OPTICAL COATING 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 EXAM LLC GENERAL RTN W/ABNORMAL FIND Z113 ENCOUNTER 05-02-2016 [facility], SCREEN LLC INFECTIONS SEXL MODE TRANSMISSN R1031 RIGHT LOWER 05-01-2016 [facility], PAIN PLLC J020 STREPTOCOCC 10-31-2015 [facility] AL PHARYNGITIS Z6828 BODY MASS 10-31-2015 [facility] INDEX BMI 28.0-28.9 ADULT [id number] PAIN IN 05-29-2015 [place] LEFT LOWER MEDICAL LEG IMAGING ASS R2242 LOCALIZED 05-29-2015 [facility] MASS AND IMAGING ASS LUMP LEFT LOWER LIMB W39125D SPRAIN UNS 05-29-2015 [facility] LIGAMENT [facility], LEFT ANKLE [facility] INITIAL ENCOUNTER N8320 UNSPECIFIED 05-27-2015 [facility] OVARIAN CYSTS 16351 DEHYDRATION 03-09-2015 [facility], [facility] 2768 HYPOPOTASSE 03-09-2015 [facility] AUGUST [facility], [facility] 9924 HEAT 03-09-2015 [facility] P DEPLETION 9925 HEAT 03-09-2015 [facility] RUIZ, PHYSICIANS, [facility] UNSPECIFIED E9000 ACCIDENT 03-09-2015 [facility] P HEAT WEATHER CONDITIONS 0340 STREPTOCOCC 09-07-2014 [facility] AL SORE N EMERGENCY THROAT PHYS 3829 UNSPECIFIED 09-07-2014 [facility] OTITIS N EMERGENCY MEDIA PHYS 60984 ABDOMINAL 08-25-2014 [facility], [facility] UNSPECIFIED HOSPITAL SITE 94712 REFLUX 08-24-2014 [facility] ESOPHAGITIS 30111 ABDOMINAL 08-23-2014 [facility] RIGHT [facility] QUADRANT 7871 HEARTBURN 07-05-2014 [facility] 19381 ABDOMINAL 07-05-2014 [facility] [place] PA[facility] RIGHT [facility] UPPER QUADRANT 5533 DIAPHRAGMAT 06-25-2014 [place] BRANDON W/O MEDICAL MENTION IMAGING ASS OBSTRUCTION /GANGREN 5990 URINARY 04-20-2014 [facility] TRACT INFECTION SITE NOT SPECIFIED 7242 LUMBAGO 03-01-2014 DONNA KEV 7244 THORACIC/NINO 03-01-2014 DONNA KEV MBOSACRAL NEURITIS/RA DICULITIS UNSPEC 7295 PAIN IN 09-02-2013 [facility] SOFT TISSUES OF LIMB 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 9597 INJURY 09-02-2013 [facility] OTHER&UNSPE CIFIED KNEE LEG ANKLE&FOOT 50217 ABDOMINAL 04-25-2013 [facility] PAIN OTHER SPECIFIED SITE V1301 PERSONAL 04-25-2013 ROLANDO II THO HISTORY OF URINARY CALCULI 54006 PATELLAR 04-20-2013 [facility] TENDINITIS 4779 ALLERGIC 02-03-2013 [facility] RHINITIS CAUSE UNSPECIFIED 7840 HEADACHE 02-03-2013 [facility] 48503 MIGRAINE 02-02-2013 GORDON JACKSON UNSP W/O INTRACT W/O STATUS MIGRAINOSUS 04590 PAIN IN 11-26-2012 [facility] JOINT PELVIC REGION AND THIGH 7265 ENTHESOPATH 11-26-2012 [facility] Y OF HIP REGION 79331 UNSPECIFIED 10-26-2012 ROLANDO II THO TEMPOROMAND IBULAR JOINT DISORDERS 19411 ARTHRALGIA 10-26-2012 ROL[facility]O II THO OF TEMPOROMAND IBULAR JOINT 51494 SHORTNESS 07-31-2012 [facility] 7862 COUGH 07-31-2012 [facility] 05908 CHEST PAIN 07-31-2012 MARILU MAT UNSPECIFIED 486 PNEUMONIA, 07-30-2012 [facility] ORGANISM UNSPECIFIED 4871 INFLUENZA 07-30-2012 [facility] WITH OTHER RESPIRATORY MANIFESTATI ONS 88683 ASTHMA, 07-27-2012 ROLANDO II THO UNSPECIFIED , UNSPECIFIED STATUS 4660 ACUTE 07-24-2012 [facility] BRONCHITIS 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 2298 BENIGN 12-19-2010 SCHRADER BUCK NEOPLASM OF OTHER SPECIFIED SITES 08754 OTHER 12-19-2010 [facility] SEBORRHEIC PATRICIA & KERATOSIS DUBILIER 7099 UNSPECIFIED 12-19-2010 [place] [facility] OF GROUP [facility] SKIN&SUBCUT ANEOUS TISSUE 80630 INTRINSIC 12-12-2010 [place] [facility] ASTHMATICUS Race Yourself, D 10534 ESOPHAGEAL 11-28-2010 SCHRADER BUCK REFLUX 7881 DYSURIA 11-14-2010 [facility] 30604 UNS 05-18-2010 [facility] GASTRITIS&G MCC ASTRODUODIT IS W/O MENTION HEMORR V7231 ROUTINE 05-18-2010 [facility] AL EXAMINATION 29371 ACUT 04-02-2010 [facility] PYELONEPHRI TIS W/O LES RENAL MEDULRY NECROS Medications Na ND Rx Da Fi Fi [...] ve 27 20 20 03 [place] ON 17 17 74 E 9 91 CV AZ S OP PH AR 50 MA CY MC G LL SP C, RA Y DB A CV S PH AR MA CY #3 01 6 CE 00 06 07 30 30 00 KE Ac TI 37 -1 -2 .0 00 NT ti RI 83 9- - 01 UC ve ZI 63 20 20 03 [place] NE 70 17 17 74 1 90 CV HC S L PH 10 AR MA MG CY TA LL BL C, ET DB A CV S PH AR MA CY #3 01 6 FL 00 06 07 16 30 00 KE Ac UT 05 -1 -2 .0 00 NT ti IC 43 9- 01 UC ve 27 20 20 03 [place] ON 17 17 74 E 9 91 CV AZ S OP PH AR 50 MA CY [...] -2 .0 00 NT ti IC 20 9 01 UC ve IL 01 20 20 03 [place] LI 50 17 17 74 N 1 93 CV 87 S 5 PH MG AR MA TA CY BL ET LL C, DB A CV S PH AR MA CY #3 01 6 TO 69 06 07 30 30 00 KE Ac PI 09 -1 -2 .0 00 NT ti RA 70 9 01 UC ve MA 81 20 20 03 [place] TE 60 17 17 74 3 94 CV 25 S PH MG AR MA TA CY BL ET LL C, DB A CV S PH AR MA CY #3 01 6 VE 00 06 07 18 30 00 KE Ac NT 17 -1 -2 .0 00 NT ti OL 30 9 01 UC ve IN 68 20 20 03 [place] 22 17 17 74 HF 0 95 CV A S 90 PH AR MC MA G CY IN MEJIA LL LE C, R DB A CV S PH AR MA CY #3 01 6 AZ 65 06 07 15 4 00 KE [...] -2 .0 00 NT ti RT 00 9- 1- 00 01 UC ve AN 21 20 [...] PH AR MA CY #3 01 6 AZ 65 12 02 15 4 00 KE [...] 12 01 14 7 00 KE Ac AZ 86 -2 -2 .0 00 NT ti OF 20 2- 7- 00 00 UC ve LO 07 20 20 [...] NT ti -C 11 3- 7- 00 00 UC ve LA 85 20 20 [...] NT ti ON 10 3- 7- 00 00 UC ve ID 33 20 20 [...] NT ti RO 60 6- 7- 00 00 UC ve FE 46 20 20 99 [place] N 50 16 17 10 60 5 79 CV 0 S MG PH AR TA MA BL CY ET LL C, DB A CV S PH AR MA CY #3 01 6 AZ 65 12 01 15 4 00 KE Ac OM 16 -2 -2 .0 00 NT ti ET 20 7- 7- 00 00 UC ve MEJIA 52 20 20 99 [place] ZI 11 16 17 14 NE 0 42 CV S 25 PH AR MG MA CY TA BL LL ET C, DB A CV S PH AR MA CY #3 01 6 AZ 65 12 01 15 4 00 KE [...] 16 17 61 E 9 19 CV AZ S OP PH AR 50 MA CY MC G LL SP C, RA Y DB A CV S PH AR SEDA CY #3 01 6 VE 00 12 01 18 25 00 KE Ac NT 17 -1 -1 .0 00 NT ti OL 30 1- 3- 00 00 UC ve IN 68 20 20 96 [place] 22 16 17 47 HF 0 02 CV A S 90 PH AR MC SEDA G CY IN MEJIA LL LE C, [...] MG 03 01 TA 6 BL ET AZ 37 09 11 11 56 28 CV [...] 11 MA AN E 9 CY B AZ # OP 03 50 01 6 MC [...] 03 01 MG 6 TA BL ET AZ 37 09 10 11 56 28 CV [...] 11 MA AN E 9 CY B AZ # OP 03 50 01 6 MC [...] 01 0 6 MG TA BL ET CE 00 09 09 2 30 30 CV 61 WE Ac TI 37 -2 -[address] ti RI 83 1- 1- 00 PH 56 ve ZI 63 20 20 AR RY NE 70 11 11 MA AN 1 CY B HC # L 10 03 01 MG 6 TA BL ET AM 00 03 09 4 30 30 CV 59 WE Ac IT 37 -2 -[address] ti RI 82 8- 0- 00 PH 75 ve PT 67 20 20 AR RY YL 50 11 11 MA AN IN 1 CY B E # HC L 03 75 01 6 MG TA B AZ 37 09 09 11 56 28 CV [...] 50 01 6 MG TA BL ET AZ 37 02 08 5 56 28 CV 59 WE Ac IL 00 -2 -0 .[address] ti OS 00 8 9 00 PH 15 ve EC 45 20 [...] MG 03 01 TA 6 BL ET AZ 37 02 07 5 56 28 CV [...] MG 03 01 TA 6 BL ET AZ 37 02 06 5 56 28 CV 59 WE Ac IL 00 -2 -[address] ti OS 00 8 5- 00 PH 15 ve EC 45 [...] 03 #3 01 6 TA BL ET 63 05 [...] 60 4- 4- 00 ON 31 ve AZ 00 20 20 RY ED [address] AN NI 3 UG B SO LO IN NE C 4 MG DO SE PK AZ 59 05 05 0 6. 5 CV 60 WE Ac IT 76 -2 -[address] ti HR 23 4- 4- 0 PH 40 ve OM 06 20 20 AR RY YC 00 11 11 MA AN IN 1 CY B # 25 0 03 MG 01 6 TA BL ET AZ 37 02 05 5 56 28 CV [...] 0 6. 3 CV 60 WE Ac AZ 25 -2 -[address] [...] 0 CY B # 03 01 6 RA 68 03 04 4 60 30 CV 59 WE Ac NI 46 -2 -[address] ti TI 20 8- 5- 00 PH 76 ve DI 24 20 20 AR RY NE 80 11 11 MA AN 5 CY B 15 # 0 MG 03 01 TA 6 BL ET AM 00 03 04 4 30 30 CV 59 WE Ac IT 37 -2 -[address] ti RI 82 8- 5- 00 PH 75 ve PT 67 20 20 AR RY YL 50 11 11 MA AN IN 1 CY B E # HC L 03 75 01 6 MG TA B AZ 37 02 04 5 56 28 CV [...] MG 03 01 TA 6 BL ET AZ 37 02 03 5 56 28 CV [...] MG 03 01 TA 6 BL ET AZ 37 01 02 2 56 28 CV [...] MG 03 01 TA 6 BL ET AM 00 01 01 2 30 30 CV 58 WE Ac IT 37 -0 -[address] ti RI 82 3- 0- 00 PH 90 ve PT 67 20 20 AR RY YL 50 11 11 MA AN IN 1 CY B E # HC L 03 75 01 6 MG TA B AZ 37 01 01 2 56 28 CV [...] MG 03 01 TA 6 BL ET AZ 37 01 01 2 56 28 CV 58 WE Ac IL 00 -0 -[address] ti OS 00 3- 3- 00 PH 93 ve EC 45 20 20 AR RY 50 11 11 MA AN OT 4 CY B C # 20 .6 03 01 MG 6 TA BL ET Procedures Procedure DOS Code Location Performer Comment BLOOD 50492 [facility] COMPLETE INC INC AUTO&AUTO DIFRNTL WBC COMPREHEN 82267 [facility] SIVE 7 [facility] [place] [address] [facility] INFUSION 7 [facility] THERAPY/P INC INC ROPHYLAXI S /DX 1ST TO 1 HR THERAPEUT 25379 [facility] IC 7 [facility] INJECTION INC INC IV PUSH EACH NEW DRUG FINAL G9638 [facility] REPORTS 7 MEDICAL W/O DOC IMAGING 1/[place] [address] [facility] HEAD/BRAI 7 [facility] N W/O INC INC CONTRAST MATERIAL CULTURE 32889 [facility] BACTERIAL 6 [facility] INC INC QUANTTATI VE COLONY COUNT URINE URNLS DIP 78778 [facility] 6 [facility] STICK/TAB INC INC LET REAGENT AUTO MICROSCOP Y COMPREHEN 90862 [facility] SIVE 6 [facility] METABOLIC INC INC PANEL COLLECTIO 26850 [facility] N VENOUS 6 MEM HOS[facility] MEM [facility]OS[facility] BLOOD INC INC VENIPUNCT URE BLOOD 05188 [facility] COUNT 6 [facility] COMPLETE INC INC AUTO&[place] [address] [facility] ABDOMEN & 6 MEM HOS[facility] PELVIS INC INC W/O CONTRAST MATERIAL BLOOD 23681 [facility] COUNT 6 N N COMPLETE COMMUNTIY COMMUNTIY AUTOMATED HOSPITA HOSPITA COLLECTIO 80850 [facility] N VENOUS 6 N N BLOOD COMMUNTIY COMMUNTIY VENIPUNCT HOSPITA HOSPITA [facility] G0378 [facility] OBSERVATI 6 N N ON COMMUNTIY COMMUNTIY SERVICE HOSPITA HOSPITA PER HOUR INJECTION J2550 [facility] 6 N N PROMETHAZ COMMUNTIY COMMUNTIY INE HCL HOSPITA HOSPITA UP TO 50 MG LAPS 06513 ALE[facility] TOTAL 6 MEDICAL HYSTERECT SERV 250 GM/< FOUNDATIO W/RMVL N TUBE/OVAR Y INJECTION J2250 [facility] 6 N N MIDAZOLAM COMMUNTIY COMMUNTIY HCL PER HOSPITA HOSPITA 1 MG INJECTION J2270 [facility] MORPHINE 6 N N SULFATE COMMUNTIY COMMUNTIY UP TO 10 HOSPITA HOSPITA MG INJECTION J0690 [facility] 6 N N CEFAZOLIN COMMUNTIY COMMUNTIY SODIUM HOSPITA HOSPITA 500 MG URNLS DIP 90500 [facility] 6 N N STICK/TAB COMMUNTIY COMMUNTIY LET HOSPITA HOSPITA REAGENT AUTO MICROSCOP Y ANESTHESI 47081 [place] ZI[facility] A 6 ANESTHESI I JR INTRAPERI A GROUP TONEAL PS LOWER ABD W/LAPS NOS BLOOD 77643 [facility] COUNT 6 N N COMPLETE COMMUNTIY COMMUNTIY AUTOMATED HOSPITA HOSPITA INJECTION J1100 [facility] 6 N N DEXAMETHO COMMUNTIY COMMUNTIY SONE HOSPITA HOSPITA SODIUM PHOSPHATE 1 MG INJECTION J1170 [facility] 6 N N HYDROMORP COMMUNTIY COMMUNTIY OCTAVIO UP HOSPITA HOSPITA TO 4 MG RINGERS J7120 [facility] LACTATE 6 N N INFUSION COMMUNTIY COMMUNTIY UP TO HOSPITA HOSPITA 1000 CC INJECTION J3010 [facility] FENTANYL 6 N N CITRATE COMMUNTIY COMMUNTIY 0.1 MG HOSPITA [place] V [address] [facility] CADEN SURG 6 LLC PATHOLOGY GROSS&KEV ROSCOPIC EXAM INJECTION J2704 [facility] PROPOFOL 6 N N 10 MG COMMUNTIY COMMUNTIY HOSPITA HOSPITA BASIC 38400 [facility] VANDANA METABOLIC 6 N PANEL COMMUNTIY CALCIUM HOSPITA TOTAL BLOOD 42182 [facility] TYPING 6 N N SEROLOGIC COMMUNTIY COMMUNTIY RH (D) HOSPITA HOSPITA GONADOTRO 68523 [facility] MARSHALL PIN 6 N CHORIONIC COMMUNTIY HOSPITA QUALITATI VE BLOOD 27002 [facility] COUNT 6 N N COMPLETE COMMUNTIY COMMUNTIY AUTOMATED HOSPITA HOSPITA COLLECTIO 87387 [facility] N VENOUS 6 N N BLOOD COMMUNTIY COMMUNTIY VENIPUNCT HOSPITA HOSPITA URE BLOOD 51796 [facility] TYPING 6 N N SEROLOGIC COMMUNTIY COMMUNTIY ABO HOSPITA HOSPITA ANTIBODY 65093 [facility] SCREEN 6 N RBC EACH COMMUNTIY SERUM HOSPITA TECHNIQUE ENDOMETRI 87868 [facility] AL BX 6 N N CONJUNCT COMMUNTIY COMMUNTIY W/COLPOSC HOSPITA HOSPITA OPY INJECTION J2250 [facility] 6 N N MIDAZOLAM COMMUNTIY COMMUNTIY HCL PER HOSPITA HOSPITA 1 MG RINGERS J7120 [facility] LACTATE 6 N N INFUSION COMMUNTIY COMMUNTIY UP TO HOSPITA HOSPITA 1000 CC ANESTHESI 47831 [place] [facility] A VAGINAL 6 ANESTHESI A GROUP PROCEDURE PS W/BIOPSY NOS INJECTION J1100 [facility] 6 N N DEXAMETHO COMMUNTIY COMMUNTIY SONE HOSPITA HOSPITA SODIUM PHOSPHATE 1 [place] LEVEL V 60940 [facility] STEFFANY SURG 6 LLC JUAN MANUEL PATHOLOGY GROSS&KEV ROSCOPIC EXAM INJECTION J2710 [facility] 6 N N NEOSTIGMI COMMUNTIY COMMUNTIY NE HOSPITA HOSPITA METHYLSUL FATE UP TO 0.5 MG INJECTION J3010 [facility] FENTANYL 6 N N CITRATE COMMUNTIY COMMUNTIY 0.1 MG HOSPITA HOSPITA COLPOSCOP 95873 ALEXA GRAVES, Y CERVIX 6 MEDICAL III VAG ELTRD SERV FOUNDATIO CONIZATIO N N CERVIX INJECTION J1885 [facility] 6 N N KETOROLAC COMMUNTIY COMMUNTIY HOSPITA HOSPITA TROMETHAM INE PER 15 MG INJECTION J2704 [facility] PROPOFOL 6 N N 10 MG COMMUNTIY COMMUNTIY HOSPITA HOSPITA BLOOD 72293 [facility] TYPING 6 N N SEROLOGIC COMMUNTIY COMMUNTIY RH (D) HOSPITA HOSPITA COLLECTIO 97713 [facility] N VENOUS 6 N N BLOOD COMMUNTIY COMMUNTIY VENIPUNCT HOSPITA HOSPITA URE BLOOD 76066 [facility] TYPING 6 N N SEROLOGIC COMMUNTIY COMMUNTIY ABO HOSPITA HOSPITA ANTIBODY 03046 [facility] SCREEN 6 N N RBC EACH COMMUNTIY COMMUNTIY SER[place] [address] [facility] PICKLESIM SURG 6 [facility] PATHOLOGY GROSS&KEV ROSCOPIC EXAM COLPOSCOP 43460 ALEXA GRAVES, Y CERVIX 6 MEDICAL III JAM BX CERVIX SERV & FOUNDATIO ENDOCRV N CURRETAGE URINE 99597 ALEXA GRAVES, 6 MEDICAL III JAM TEST SERV VISUAL FOUNDATIO COLOR N CMPRSN METHS IADNA 03193 [facility] PERALES CHLAMYDIA 6 [facility] JUAN MANUEL TRACHOMAT IS AMPLIFIED PROBE TQ IADNA 64086 [facility] PERALES HUMAN 6 [facility] JUAN MANUEL PAPILLOMA VIRUS HIGH-RISK TYPES CYTP 35283 [facility] PERALES CERVICAL/ 6 [facility] JUAN MANUEL VAGINAL REQ INTERP PHYSICIAN CYTP C/V 23802 [facility] PERALES AUTO THIN 6 LLC JUAN MANUEL LYR PREPJ SCR MNL RESCR PHYS IADNA 67528 [facility] NEISSERIA 6 LLC JUAN MANUEL GONORRHOE AE AMPLIFIED PROBE TQ IAADIADOO 50980 [facility] 6 STREPTOCO CCUS GROUP A RADIOLOGI 94088 [facility] C 5 [facility] EXAMINATI INC INC ON TIBIA & FIBULA 2 VIEWS THERAPEUT 97179 [facility] IC 5 [facility] PROPHYLAC INC INC TIC/DX INJECTION SUBQ/[place] [address] [facility] ABDOMEN & 5 RADIOLOGY PELVIS W/O CONTRAST MATERIAL ECG 64159 [facility] JR ROUTINE 5 [facility] W/LEAST P 12 LDS I&R ONLY COMPREHEN 19286 ROLLY LOFTON SIVE [address] [place] [address] PANEL ANTIBODY 37647 ROLLY LOFTON HELICOBAC [address] [place] [address] PYLORI COLLECTIO 80830 ROLLY LOFTON N VENOUS [address] [place] [address] [place] [address] [facility] LIPASE [address] [place] [address] BLOOD 13556 [facility] COUNT [address] [place] [address] AUTO&AUTO DIFRNTL WBC INJECTION J2805 ROLLY [address] 5 MICROGRAM S TECHNETIU A9537 ROLLY LOFTON M TC-99M [address] [place] [address] N DX UP TO 15 [facility] HEPATOBIL [address]2419 [facility] [place] SCALF ALEX SYST 5 RADIOLOGY IMAG INC GB W/PHARMA INTERVENJ RADEX 08385 ROLLY LOFTON UPPER GI 4 [facility] W/WO [facility] GLUCAGON/ [place] IMG[place] W/[place] [address] ROLLY LOFTON ABDOMINAL 4 [facility] TIME W/[place] [address] KANE IBARRA ABDOMEN & 4 [facility] PELVIS IMAGING W/CONTRAS ASS T MATERIAL RADEX 72878 [facility] FOOT 4 [facility] MINIMUM 3 VIEWS CRTCHS E0114 [facility] UNDARM 4 OTH THAN WOOD PAIR PAD TIP&[place] [address] [facility] ABDOMEN & 3 PELVIS W/O CONTRAST MATERIAL RADIOLOGI 92106 EZEQUIEL EZEQUIEL C 3 RHO RHO EXAMINATI ON KNEE 3 VIEWS RADEX HIP 06765 [facility] 3 [facility] L COMPLETE MINIMUM 2 VIEWS RADEX 37961 [facility] SPINE 3 [facility] AL MINIMUM 4 VIEWS RADEX 71171 [facility] MAT RIBS 3 UNILATERA L 2 VIEWS RADIOLOGI 47603 [facility] MAT C EXAM 3 CHEST 2 VIEWS FRONTAL&L ATERAL THORACIC L0220 [facility] RIB BELT 3 CUSTOM FABRICATE D IAADIADOO 56307 [facility] 3 INFLUENZA RADIOLOGI 12626 [facility] MAT C EXAM 3 CHEST 2 VIEWS FRONTAL&L ATERAL PRESSURIZ 13880 [facility] ED/NONPRE 3 [place] [address] [facility] SURG 1 PATRICIA [facility]&KEV ROSCOPIC EXAM ADJT TIS 90335 MACRINA SCHRADER TRNS/REAR 1 BUCK BUCK GMT F/C/C/M/N /A/G/H/F 10SQCM/< ANES 03427 [place] [facility] INTEG 1 ANESTHESI YANET MUSC & A GROUP NRV HEAD PSC NECK&POST ERIOR TRUNK PRESSURIZ 75902 [facility] ED/NONPRE 1 SSURIZED INHALATIO N TREATMENT SPACR A4627 [facility] BAG/RESRV 1 [facility] OR W[facility], D LLC, D W/METRD DOSE INHAL URINLS 94857 [facility] DIP 1 STICK/TAB LET REAGNT NON-AUTO MICRSCPY CULTURE 17595 ROLLY LOFTON BACTERIAL 1 [facility] QUANTTATI VE COLONY COUNT URINE URNLS DIP 44029 [facility] [place] 1 [facility] [place] [address] FELLER FELLER ABDOMEN 0 EDDIE EDDIE W/O CONTRAST MATERIAL CT PELVIS 89390 FELLER FELLER W/O 0 EDDIE EDDIE CONTRAST MATERIAL Encounters Encounter Start End Date Code Location Performer Type Date OFFICE [address] [facility] 7 7 T VISIT 15 MINUTES EMERGENCY 94198 STEVIE AMANDA 7 7 PHYSICIAN [facility] T VISIT HIGH/URGE NT SEVERITY OFFICE 63077 [facility] 7 7 T VISIT [address] [facility] 7 7 T VISIT 25 MINUTES EMERGENCY 19270 [place] 7 7 [facility] T VISIT HIGH/URGE NT SEVERITY [facility] [place] [facility] OUTPATI[facility] T EMERGENCY 56202 STEVIE THOMPSON DEPT 7 7 PHYSICIAN VISIT S [facility] HIGH SEVERITY& THREAT [facility] [place] - 6 6 [facility] OUTPATIEN INC T EMERGENCY 60647 [place] 6 [facility]ISIT MODERATE SEVERITY EMERGENCY 64315 STEVIE THOMPSON 6 6 PHYSICIAN DEPARTMEN , [facility] T VISIT HIGH/URGE NT SEVERITY [facility] 6 6 N OUTPATIEN COMMUNTIY T HOSPITA OFFICE 66869 [facility] 6 6 MEDICAL III T VISIT SERV 15 FOUNDATIO MINUTES [facility] 6 6 N OUTPATIEN COMMUNTIY T HOSPITA OFFICE 40257 [facility] RYA OUTPATIEN 6 6 T VISIT 15 MINUTES EMERGENCY 39649 STEVIE WAYNE 6 6 PHYSICIAN FOR DEPARTMEN S, PLLC T VISIT MODERATE SEVERITY OFFICE 82396 [facility] RY OUTPATIEN 6 6 T VISIT 15 MINUTES EMERGENCY 16539 [place] 5 5 [facility] INC T VISIT LOW/MODER SEVERITY EMERGENCY 24594 STEVIE DONOVAN 5 5 [facility] MOD[facility]ATE SEVERITY [facility] [place] [facility] 5 5 [facility] T OFFICE 32801 [facility] T VISIT 15 MINUTES EMERGENCY 14287 [facility] [place] [facility]PT 5 5 [facility] VISIT EMERGENCY HIGH PHYS SEVERITY& THREAT F[facility]J EMERGENCY 56980 STEVIE DO DEPT 5 5 PHYSICIAN U LIEN VISIT S, PLLC HIGH SEVERITY& THREAT FUNCJ EMERGENCY 37101 [facility] 5 5 [facility] EDW DEPARTMEN EMERGENCY T VISIT PHYS HIGH/URGE NT SEVERITY [facility] [place] - 5 5 [facility] T OFFICE 78154 [facility] 5 T VISIT 15 MINUTES [facility] [place] [facility] 5 5 [facility] [place] [facility] 4 4 [facility] T OFFICE 31818 [facility] 4 4 T VISIT 15 MINUTES OFFICE 73805 [facility] 4 4 T VISIT 15 MINUTES EMERGENCY 66708 DONNA THOMPSON 4 4 KEV KEV DEPARTMEN T VISIT MODERATE SEVERITY [facility] [place] - 4 4 [facility] T OFFICE 15659 [facility] 4 4 T VISIT 15 MINUTES EMERGENCY 12444 [facility] 3 3 THO THO DEPARTMEN T VISIT MODERATE SEVERITY OFFICE 28897 [facility] 3 3 T VISIT 15 MINUTES OFFICE 46840 [facility] 3 3 T VISIT 15 MINUTES OFFICE 44632 [facility] 3 3 T VISIT 15 MINUTES EMERGENCY 96702 [facility] 3 3 DEPARTMEN T VISIT HIGH/URGE NT SEVERITY OFFICE 92880 [facility] 3 3 T VISIT 15 MINUTES [facility] [place] [facility] 3 3 [facility] T OFFICE 67573 [facility] 3 3 T VISIT 15 MINUTES EMERGENCY 56230 [facility] II [facility] II 3 3 O DEPARTMEN T VISIT MODERATE SEVERITY [facility] [place] - 3 3 [facility] T OFFICE 64680 [facility] 3 3 T VISIT 15 MINUTES EMERGENCY 65139 [facility] II [facility] II 3 3 O DEPARTMEN T VISIT MODERATE SEVERITY OFFICE 67400 [facility] 3 3 T VISIT 15 MINUTES OFFICE 00056 [facility] 1 1 T VISIT 15 MINUTES OFFICE 24474 [facility] 1 1 [facility]CK [facility]CK T NEW 30 MINUTES [facility] [place] [facility] 1 1 [facility] T OFFICE 53338 [facility] 1 1 T VISIT 15 MINUTES OFFICE 57557 [facility] 1 1 T VISIT 15 MINUTES OFFICE 45613 [facility] 1 1 T NEW 30 MINUTES OFFICE 19688 [facility] 0 0 MCC OBIE T VISIT 15 MINUTES EMERGENCY 62659 COUCH NAVID COUCH NAVID 0 0 DEPARTMEN T VISIT HIGH/URGE NT SEVERITY EMERGENCY 53629 [facility] 0 0 [facility] DEPARTMEN T VISIT HIGH/URGE NT SEVERITY
--- OUTSIDE RECORDS SUMMARY | 2017-05-01 05:08 | External Medical Summary Rpt ---
Author Author , RUTHY Organization RUTYH Address Unknown Phone [email or web address] Care Team Providers Care Journeyman Level Acoustic Analyst Name Role Phone [facility], [facility] Unavailable Unavailable [facility], [facility] Unavailable Unavailable [facility] Unavailable Unavailable [facility]ITAL, [facility] MARSHALL, MARSHALL Unavailable Unavailable BROWN JAM, BROWN JAM Unavailable Unavailable BROWN JAM, BROWN JAM Unavailable Unavailable [facility] PATRICIA & Unavailable Unavailable DUBILIER, [facility] PATRICIA [facility] DUBILIER JORGE TER, JORGE TER Unavailable Unavailable [facility], Unavailable Unavailable [facility] COUCH NAIVD, COUCH NAVID Unavailable Unavailable CADEN, CADEN Unavailable Unavailable STACEY, STACEY Unavailable Unavailable STACEY NICANOR, Unavailable Unavailable STACEY NICANOR [facility] # [id number], Unavailable Unavailable [facility] # [id number] ROLANDO II THO, ROLANDO II Unavailable Unavailable THO ROLANDO II THO, ROLANDO II Unavailable Unavailable THO DEPA RAY, DEPA RAY Unavailable Unavailable FELLER EDDIE, FELLER Unavailable Unavailable EDDIE TREASURE, , TREASURE, Unavailable Unavailable JR DONNA, DONNA Unavailable Unavailable DONNA KEV, DONNA Unavailable Unavailable KEV DONNA KEV, DONNA Unavailable Unavailable KEV [facility] Unavailable Unavailable [facility], [facility] EZEQUIEL RHO, EZEQUIEL Unavailable Unavailable [facility] Unavailable Unavailable INC, [facility] Unavailable Unavailable HOSPITAL P, [facility] CENTENO, CENTENO Unavailable Unavailable [facility], Unavailable Unavailable [facility], Unavailable Unavailable [facility] VANDANA, VANDANA Unavailable Unavailable [facility] [place] Unavailable Unavailable [facility] [place] Unavailable Unavailable [facility] LEYVAAMBIKA JACKSON, GORDON JACKSON Unavailable Unavailable LEYVAAMBIKA JACKSON, GORDON JACKSON Unavailable Unavailable [facility] Unavailable Unavailable GROUP PS, [facility] Unavailable Unavailable LLC, D, [facility], D [facility] Unavailable Unavailable LLC, D, [facility], [facility] Unavailable Unavailable [facility], [facility] Unavailable Unavailable [facility], [facility] Unavailable Unavailable [facility], [...] [facility] Unavailable Unavailable [facility], [facility] ELY, III, ELY, Unavailable Unavailable III ELY, III JAM, Unavailable Unavailable ELY, III JAM WALKER FOR, WALKER Unavailable Unavailable FOR WEST, WEST Unavailable Unavailable WEST, WEST Unavailable Unavailable [facility], [facility] Unavailable Unavailable [facility], [facility] Unavailable Unavailable BANDAR EDW, BANDAR Unavailable Unavailable EDW [facility], Unavailable Unavailable [facility] ALEAH RUSH, Unavailable Unavailable ALEAH RUSH MARILU MAT, MARILU MAT Unavailable Unavailable MARILU MAT, MARILU MAT Unavailable Unavailable Purpose Continuity of Care Document - 04-02-2010 through 2016 Problems Code Diagnosis DOS Provider Status [id number] MIGRAINE 03-18-2017 [facility] W/AURA NOT INTRACT W/O STAT MIGRAINOSUS Z6834 BODY MASS 03-18-2017 [facility] INDEX BMI 34.0-34.9 ADULT I10 ESSENTIAL 03-11-2017 [facility], HYPERTENSIO [facility] N G2581 RESTLESS 03-08-2017 [facility] LEGS SYNDROME J0100 ACUTE 01-07-2017 [facility] MAXILLARY SINUSITIS UNSPECIFIED J302 OTHER 01-07-2017 [facility] SEASONAL ALLERGIC RHINITIS Z6833 BODY MASS 01-07-2017 [facility] INDEX BMI 33.0-33.9 ADULT [id number] MIGRAINE 01-05-2017 [facility] NOT MEDICAL INTRACT W/O IMAGING ASS STATUS MIGRAINOSUS R4182 ALTERED 01-05-2017 [place] MENT[facility]ICAL STATUS IMAGING ASS UNSPECIFIED R51 HEADACHE 01-05-2017 [facility], PLLC N3000 ACUTE 07-11-2016 [facility] CYSTITIS [facility]ANS, WITHOUT PLL HEMATURIA N390 URINARY 07-11-2016 [facility] TRACT [facility], INFECTION PLLC SITE NOT SPECIFIED G42369 UNSPECIFIED 07-11-2016 [facility] OVARIAN [facility]YS[facility]ANS, CYST RIGHT PLLC SIDE Z720 TOBACCO USE 07-11-2016 [facility] D259 LEIOMYOMA 2016 [facility], OF UTERUS LLC UNSPECIFIED N871 MODERATE 2016 [facility] DYSPLASIA [facility]OUND[facility] N920 EXCESS & 2016 [facility] FREQUENT SERV MENSTRUATIO FOUNDATION N W/REGULAR CYCLE N939 ABNORMAL 2016 [place] [facility]AGINAL [facility] PS BLEEDING UNSPECIFIED D069 CARCINOMA 07-01-2016 [facility] COMMUNTIY CERVIX HOSPITA UNSPECIFIED K219 GASTRO-ESOP 07-01-2016 [facility] H REFLUX COMMUNTIY DISEASE HOSPITA WITHOUT ESOPHAGITIS F59768 ENCOUNTER 06-21-2016 [facility] FOR OTHER SERV PREPROCEDUR FOUNDATION AL EXAMINATION B977 PAPILLOMAVI 06-04-2016 [facility], LOS CAUSE LLC OF DZ CLASSIFIED ELSEWHERE D071 CARCINOMA 06-04-2016 [facility] IN [facility]ITU OF SERV VULVA FOUNDATION N879 DYSPLASIA 06-04-2016 [place] OF CERVIX ANESTHESIA UTERI GROUP PS UNSPECIFIED D060 CARCINOMA 06-03-2016 [facility] OF COMMUNTIY ENDOCERVIX HOSPITA A42586 UNSPECIFIED 06-03-2016 [facility] ASTHMA COMMUNTIY UNCOMPLICAT HOSPITA ED F72184 HI G SQ 05-28-2016 [facility] INTRAEPITHE SERV LIAL LES ON FOUNDATION CYTOL SMEAR CERV Z6831 BODY MASS 05-28-2016 [facility] INDEX BMI 31.0-31.9 ADULT Z3202 ENCOUNTER 05-15-2016 [facility] FOR SERV [facility]ATION TEST RESULT NEGATIVE H71633 CERV HIGH 05-02-2016 [facility] RSK [facility]UM[facility] PAPILLOMAVI LOS DNA TEST POS F58097 ENCOUNTER 05-02-2016 [facility], 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 EXAM LLC GENERAL RTN W/ABNORMAL FIND Z113 ENCOUNTER 05-02-2016 [facility], SCREEN LLC INFECTIONS SEXL MODE TRANSMISSN R1031 RIGHT LOWER 05-01-2016 [facility], PAIN PLLC J020 STREPTOCOCC 10-31-2015 [facility] AL PHARYNGITIS Z6828 BODY MASS 10-31-2015 [facility] INDEX BMI 28.0-28.9 ADULT H92109 PAIN IN 05-29-2015 [place] LEFT LOWER MEDICAL LEG IMAGING ASS R2242 LOCALIZED 05-29-2015 [place] SWELLING MEDICAL MASS AND IMAGING ASS LUMP LEFT LOWER LIMB W33025O SPRAIN UNS 05-29-2015 [facility] LIGAMENT PHYS[facility]IANS, LEFT ANKLE [facility] INITIAL ENCOUNTER N8320 UNSPECIFIED 05-27-2015 [facility] OVARIAN CYSTS 50321 DEHYDRATION 03-09-2015 [facility], [facility] 2768 HYPOPOTASSE 03-09-2015 [facility] AUGUST PHYS[facility]ANS, [facility] 9924 HEAT 03-09-2015 [facility] P DEPLETION 9925 HEAT 03-09-2015 [facility] RUIZ, PHYSICIANS, [facility] UNSPECIFIED E9000 ACCIDENT 03-09-2015 [facility] P HEAT WEATHER CONDITIONS 0340 STREPTOCOCC 09-07-2014 [facility] AL SORE N EMERGENCY THROAT PHYS 3829 UNSPECIFIED 09-07-2014 [facility] OTITIS N EMERGENCY MEDIA PHYS 79468 ABDOMINAL 08-25-2014 [facility] PA[facility], [facility] UNSPECIFIED HOSPITAL SITE 24404 REFLUX 08-24-2014 [facility] ESOPHAGITIS 16859 ABDOMINAL 08-23-2014 [facility] RIGHT [facility] QUADRANT 7871 HEARTBURN 07-05-2014 [facility] 01400 ABDOMINAL 07-05-2014 [facility] [place] PAIN RIGHT [facility] UPPER QUADRANT 5533 DIAPHRAGMAT 06-25-2014 [place] BRANDON W/O MEDICAL MENTION IMAGING ASS OBSTRUCTION /GANGREN 5990 URINARY 04-20-2014 [facility] TRACT INFECTION SITE NOT SPECIFIED 7242 LUMBAGO 03-01-2014 DONNA KEV 7244 THORACIC/NINO 03-01-2014 DONNA KEV MBOSACRAL NEURITIS/RA DICULITIS UNSPEC 7295 PAIN IN 09-02-2013 [facility] SOFT TISSUES OF LIMB 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 9597 INJURY 09-02-2013 [facility] OTHER&UNSPE CIFIED KNEE LEG ANKLE&FOOT 58944 ABDOMINAL 04-25-2013 [facility] PAIN OTHER SPECIFIED SITE V1301 PERSONAL 04-25-2013 ROLANDO II THO HISTORY OF URINARY CALCULI 56437 PATELLAR 04-20-2013 [facility] TENDINITIS 4779 ALLERGIC 02-03-2013 [facility] RHINITIS CAUSE UNSPECIFIED 7840 HEADACHE 02-03-2013 [facility] 98437 MIGRAINE 02-02-2013 GORDON JACKSON UNSP W/O INTRACT W/O STATUS MIGRAINOSUS 78019 PAIN IN 11-26-2012 [facility] JOINT PELVIC REGION AND THIGH 7265 ENTHESOPATH 11-26-2012 [facility] Y OF HIP REGION 72369 UNSPECIFIED 10-26-2012 ROL[facility]O II THO TEMPOROMAND IBULAR JOINT DISORDERS 10058 ARTHRALGIA 10-26-2012 ROL[facility] II THO OF TEMPOROMAND IBULAR JOINT 56707 SHORTNESS 07-31-2012 [facility] 7862 COUGH 07-31-2012 [facility] 75951 CHEST PAIN 07-31-2012 MARILU MAT UNSPECIFIED 486 PNEUMONIA, 07-30-2012 [facility] ORGANISM UNSPECIFIED 4871 INFLUENZA 07-30-2012 [facility] WITH OTHER RESPIRATORY MANIFESTATI ONS 00929 ASTHMA, 07-27-2012 ROLANDO II THO UNSPECIFIED , UNSPECIFIED STATUS 4660 ACUTE 07-24-2012 [facility] BRONCHITIS 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 2298 BENIGN 12-19-2010 SCH[facility] BUCK NEOPLASM OF OTHER SPECIFIED SITES 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 7099 UNSPECIFIED 12-19-2010 [place] [facility] OF GROUP PSC SKIN&SUBCUT ANEOUS TISSUE 64466 INTRINSIC 12-12-2010 [place] ASTHMA [facility] ASTHMATICUS ObjectVideo, D 18342 ESOPHAGEAL 11-28-2010 [facility] BUCK REFLUX 7881 DYSURIA 11-14-2010 [facility] 56617 UNS 05-18-2010 [facility] GASTRITIS&G CORRECTION ASTRODUODIT IS W/O MENTION HEMORR V7231 ROUTINE 05-18-2010 [facility] O[facility]E AL EXAMINATION 90182 ACUT 04-02-2010 [facility] PYELONEPHRI TIS W/O LES RENAL MEDULRY [...] 17 17 74 E 9 91 CV OR S OP PH AR 50 MA CY [...] 17 17 74 E 9 91 CV OR S OP PH AR 50 MA CY [...] PH AR MA CY #3 01 6 OR 65 06 07 15 4 00 KE [...] PH AR MA CY #3 01 6 OR 65 12 02 15 4 00 KE [...] 12 01 14 7 00 KE Ac OR 86 -2 -2 .0 00 NT ti [...] PH AR MA CY #3 01 6 OR 65 12 01 15 4 00 KE Ac OM 16 -2 -2 .0 00 NT ti ET 20 7- 7- 00 00 UC ve MEJIA 52 20 20 99 [place] ZI 11 16 17 14 NE 0 42 CV S 25 PH AR MG MA CY TA BL LL ET C, DB A CV S PH AR MA CY #3 01 6 OR 65 12 01 15 4 00 KE [...] 16 17 61 E 9 19 CV OR S OP PH AR 50 MA CY [...] MG 03 01 TA 6 BL ET OR 37 09 11 11 56 28 CV [...] 11 MA AN E 9 CY B OR # OP 03 50 01 6 MC [...] 03 01 MG 6 TA BL ET OR 37 09 10 11 56 28 CV [...] 11 MA AN E 9 CY B OR # OP 03 50 01 6 MC [...] 03 75 01 6 MG TA B OR 37 09 09 11 56 28 CV [...] 50 01 6 MG TA BL ET OR 37 02 08 5 56 28 CV [...] MG 03 01 TA 6 BL ET OR 37 02 07 5 56 28 CV [...] MG 03 01 TA 6 BL ET OR 37 02 06 5 56 28 CV [...] 60 4- 4- 00 ON 31 ve OR 00 20 20 RY ED 10 11 [...] 03 MG 01 6 TA BL ET OR 37 02 05 5 56 28 CV [...] 0 6. 3 CV 60 WE Ac OR 25 -2 -[address] [...] 03 75 01 6 MG TA B OR 37 02 04 5 56 28 CV [...] MG 03 01 TA 6 BL ET OR 37 02 03 5 56 28 CV [...] MG 03 01 TA 6 BL ET OR 37 01 02 2 56 28 CV [...] 03 75 01 6 MG TA B OR 37 01 01 2 56 28 CV [...] MG 03 01 TA 6 BL ET OR 37 01 01 2 56 28 CV 58 WE Ac IL 00 -0 -[address] ti OS 00 3- 3- 00 PH 93 ve EC 45 20 20 AR RY 50 11 11 MA AN OT 4 CY B C # 20 .6 03 01 MG 6 TA BL ET Procedures Procedure DOS Code Location Performer Comment BLOOD 62664 [facility] COUNT 7 [facility] COMPLETE INC INC AUTO&AUTO DIFRNTL WBC COMPREHEN 46767 [facility] SIVE 7 [facility] [place] [address] [facility] INFUSION 7 [facility] THERAPY/P INC INC ROPHYLAXI S /DX 1ST TO 1 HR THERAPEUT 56665 [facility] IC 7 [facility] INJECTION INC INC IV PUSH EACH NEW DRUG FINAL G9638 [place] STACEY REPORTS 7 MEDICAL W/O DOC IMAGING 1/[place] [address] [facility] HEAD/BRAI 7 [facility] N W/O INC INC CONTRAST MATERIAL CULTURE 90932 [facility] BACTERIAL 6 [facility] INC INC QUANTTATI VE COLONY COUNT URINE URNLS DIP 71716 [facility] 6 [facility] STICK/TAB INC INC LET REAGENT AUTO MICROSCOP Y COMPREHEN 97201 [facility] SIVE 6 [facility] METABOLIC INC INC PANEL COLLECTIO 63145 [facility] N VENOUS 6 [facility] BLOOD INC INC VENIPUNCT URE BLOOD 49898 [facility] COUNT 6 [facility] COMPLETE INC INC AUTO&[place] [address] [facility] ABDOMEN & 6 [facility] PELVIS INC INC W/O CONTRAST MATERIAL BLOOD 42070 [facility] COUNT 6 N N COMPLETE COMMUNTIY COMMUNTIY AUTOMATED HOSPITA HOSPITA COLLECTIO 59079 [facility] N VENOUS 6 N N BLOOD COMMUNTIY COMMUNTIY VENIPUNCT HOSPITA HOSPITA [facility] G0378 [facility] OBSERVATI 6 N N ON COMMUNTIY COMMUNTIY SERVICE HOSPITA HOSPITA PER HOUR INJECTION J2550 [facility] 6 N N PROMETHAZ COMMUNTIY COMMUNTIY INE HCL HOSPITA HOSPITA UP TO 50 MG LAPS 35735 ALEXA CENTENO TOTAL 6 MEDICAL HYSTERECT SERV 250 GM/< FOUNDATIO W/RMVL N TUBE/OVAR Y INJECTION J2250 [facility] 6 N N MIDAZOLAM COMMUNTIY COMMUNTIY HCL PER HOSPITA HOSPITA 1 MG INJECTION J2270 [facility] MORPHINE 6 N N SULFATE COMMUNTIY COMMUNTIY UP TO 10 HOSPITA HOSPITA MG INJECTION J0690 [facility] 6 N N CEFAZOLIN COMMUNTIY COMMUNTIY SODIUM HOSPITA HOSPITA 500 MG URNLS DIP 94148 [facility] 6 N N STICK/TAB COMMUNTIY COMMUNTIY LET HOSPITA HOSPITA REAGENT AUTO MICROSCOP Y ANESTHESI 86751 [place] ZIEMBROSK A 6 ANESTHESI I JR INTRAPERI A GROUP TONEAL PS LOWER ABD W/LAPS NOS BLOOD 36007 [facility] COUNT 6 N N COMPLETE COMMUNTIY COMMUNTIY AUTOMATED HOSPITA HOSPITA INJECTION J1100 [facility] 6 N N DEXAMETHO COMMUNTIY COMMUNTIY SONE HOSPITA HOSPITA SODIUM PHOSPHATE 1 MG INJECTION J1170 [facility] 6 N N HYDROMORP COMMUNTIY COMMUNTIY OCTAVIO UP HOSPITA HOSPITA TO 4 MG RINGERS J7120 [facility] LACTATE 6 N N INFUSION COMMUNTIY COMMUNTIY UP TO HOSPITA HOSPITA 1000 CC INJECTION J3010 [facility] FENTANYL 6 N N CITRATE COMMUNTIY COMMUNTIY 0.1 MG HOSPITA HOSPITA LEVEL V [address] [facility] CADEN SURG 6 LLC PATHOLOGY GROSS&KEV ROSCOPIC EXAM INJECTION J2704 [facility] PROPOFOL 6 N N 10 MG COMMUNTIY COMMUNTIY HOSPITA HOSPITA BASIC 58058 [facility] VANDANA METABOLIC 6 N PANEL COMMUNTIY CALCIUM HOSPITA TOTAL BLOOD 25638 [facility] TYPING 6 N N SEROLOGIC COMMUNTIY COMMUNTIY RH (D) HOSPITA HOSPITA GONADOTRO 01143 [facility] MARSHALL PIN 6 N CHORIONIC COMMUNTIY HOSPITA QUALITATI VE BLOOD 65173 [facility] COUNT 6 N N COMPLETE COMMUNTIY COMMUNTIY AUTOMATED HOSPITA HOSPITA COLLECTIO 94460 [facility] N VENOUS 6 N N BLOOD COMMUNTIY COMMUNTIY VENIPUNCT HOSPITA HOSPITA URE BLOOD 88567 [facility] TYPING 6 N N SEROLOGIC COMMUNTIY COMMUNTIY ABO HOSPITA HOSPITA ANTIBODY 51644 [facility] MARSHALL SCREEN 6 N RBC EACH COMMUNTIY SERUM HOSPITA TECHNIQUE ENDOMETRI 28660 [facility] AL BX 6 N N CONJUNCT COMMUNTIY COMMUNTIY W/COLPOSC HOSPITA HOSPITA OPY INJECTION J2250 [facility] 6 N N MIDAZOLAM COMMUNTIY COMMUNTIY HCL PER HOSPITA HOSPITA 1 MG RINGERS J7120 [facility] LACTATE 6 N N INFUSION COMMUNTIY COMMUNTIY UP TO HOSPITA HOSPITA 1000 CC ANESTHESI 33382 [place] DEPA RAY A VAGINAL 6 ANESTHESI A GROUP PROCEDURE PS W/BIOPSY NOS INJECTION J1100 [facility] 6 N N DEXAMETHO COMMUNTIY COMMUNTIY SONE HOSPITA HOSPITA SODIUM PHOSPHATE 1 MG LEVEL V 82196 [facility], STEFFANY SURG 6 LLC JUAN MANUEL PATHOLOGY GROSS&KEV ROSCOPIC EXAM INJECTION J2710 [facility] 6 N N NEOSTIGMI COMMUNTIY COMMUNTIY NE HOSPITA HOSPITA METHYLSUL FATE UP TO 0.5 MG INJECTION J3010 [facility] FENTANYL 6 N N CITRATE COMMUNTIY COMMUNTIY 0.1 MG HOSPITA HOSPITA COLPOSCOP 11069 ALEXA GRAVES, Y CERVIX 6 MEDICAL III VAG ELTRD SERV FOUNDATIO CONIZATIO N N CERVIX INJECTION J1885 [facility] 6 N N KETOROLAC COMMUNTIY COMMUNTIY HOSPITA HOSPITA TROMETHAM INE PER 15 MG INJECTION J2704 [facility] PROPOFOL 6 N N 10 MG COMMUNTIY COMMUNTIY HOSPITA HOSPITA BLOOD 74258 [facility] TYPING 6 N N SEROLOGIC COMMUNTIY COMMUNTIY RH (D) HOSPITA HOSPITA COLLECTIO 58703 [facility] N VENOUS 6 N N BLOOD COMMUNTIY COMMUNTIY VENIPUNCT HOSPITA HOSPITA URE BLOOD 72939 [facility] TYPING 6 N N SEROLOGIC COMMUNTIY COMMUNTIY ABO HOSPITA HOSPITA ANTIBODY 37397 [facility] SCREEN 6 N N RBC EACH COMMUNTIY COMMUNTIY SER[place] [address] [facility], PICKLESIM SURG 6 PENDING S[facility] TO [facility] PATHOLOGY GROSS&KEV ROSCOPIC EXAM COLPOSCOP 55643 ALEXA GRAVES, Y CERVIX 6 MEDICAL III JAM BX CERVIX SERV & FOUNDATIO ENDOCRV [place] 05176 ALEXA GRAVES, 6 MEDICAL III JAM TEST SERV VISUAL FOUNDATIO COLOR N CMPRSN METHS IADNA 19546 [facility] PERALES CHLAMYDIA 6 [facility] JUAN MANUEL TRACHOMAT IS AMPLIFIED PROBE TQ IADNA 41673 [facility] PERALES HUMAN 6 [facility] JUAN MANUEL PAPILLOMA VIRUS HIGH-RISK TYPES CYTP 18037 [facility] PERALES CERVICAL/ 6 [facility] JUAN MANUEL VAGINAL REQ INTERP PHYSICIAN CYTP C/V 01070 [facility] PERALES AUTO THIN 6 LLC JUAN MANUEL LYR PREPJ SCR MNL RESCR PHYS IADNA 99311 [facility], STEFFANY NEISSERIA 6 LLC JUAN MANUEL GONORRHOE AE AMPLIFIED PROBE TQ IAADIADOO 39161 [facility] 6 STREPTOCO CCUS GROUP A RADIOLOGI 84857 [facility] C 5 [facility] EXAMINATI INC INC ON TIBIA & FIBULA 2 VIEWS THERAPEUT 51493 [facility] IC 5 [facility] PROPHYLAC INC INC TIC/DX [place]JECTION SUBQ/[place] [address] [facility] ABDOMEN & 5 RADIOLOGY PELVIS W/O CONTRAST MATERIAL ECG 68307 [facility] SHAW JR ROUTINE 5 [facility] W/LEAST P 12 LDS I&R ONLY COMPREHEN 70882 ROLLY LOFTON SIVE [address] [place] [address] PANEL ANTIBODY 73414 ROLLY LOFTON HELICOBAC [address] [place] [address] PYLORI COLLECTIO 15131 ROLLY LOFTON N VENOUS [address] [place] [address] [place] [address] [facility] LIPASE [address] [place] [address] BLOOD 67507 [facility] LO[facility] COUNT [address] [place] [address] AUTO&AUTO DIFRNTL WBC INJECTION J2805 [facility]LLY [address] 5 MICROGRAM S TECHNETIU A9537 ROLLY LOFTON M TC-99M [address] [place] [address] N DX UP TO 15 MCI HEPATOBIL 04101 [facility] [place] SCALF ALEX SYST 5 RADIOLOGY IMAG INC GB W/PHARMA INTERVENJ RADEX 72915 ROLLY LOFTON UPPER GI 4 [facility] W/WO [facility] HOSPITAL GLUCAGON/ [place] IM[place] [address] ROLLY LOFTON ABDOMINAL 4 [facility] TIME W/[place] [address] KANE IBARRA ABDOMEN & 4 MEDICAL NICANOR PELVIS IMAGING W/CONTRAS ASS T MATERIAL RADEX 15741 [facility] FOOT 4 [facility] MINIMUM 3 VIEWS CRTCHS E0114 [facility] UNDARM 4 OTH THAN WOOD [place]IR PAD TIP&[place] [address] [facility] ABDOMEN & 3 PELVIS W/O CONTRAST MATERIAL RADIOLOGI 06911 EZE[facility] EZEQUIEL C 3 RHO RHO EXAMINATI ON KNEE 3 VIEWS RADEX HIP 68051 [facility] 3 [facility] L COMPLETE MINIMUM 2 VIEWS RADEX 16433 [facility] SPINE 3 [facility] AL MINIMUM 4 VIEWS RADEX 38987 [facility] MARILU MAT RIBS 3 UNILATERA L 2 VIEWS RADIOLOGI 65355 [facility] MARILU MAT C EXAM 3 CHEST 2 VIEWS FRONTAL&L ATERAL THORACIC L0220 [facility] RIB BELT 3 CUSTOM FABRICATE D IAADIADOO 96221 [facility] 3 INFLUENZA RADIOLOGI 73158 [facility] MAR[facility] MAT C EXAM 3 CHEST 2 VIEWS FRONTAL&L ATERAL PRESSURIZ 87424 [facility] ED/NONPRE 3 [place] [address] [facility] EMERGENCY DEPARTMENT TER SURG 1 PATRICIA [facility] GROSS&KEV ROSCOPIC EXAM ADJT TIS 70395 MACRINA SCHRADER TRNS/REAR 1 BUCK BUCK GMT F/C/C/M/N /A/G/H/F 10SQCM/< ANES 56746 [place] CRABTREE INTEG 1 ANESTHESI YANET MUSC & A GROUP NRV HEAD PSC NECK&POST ERIOR TRUNK PRESSURIZ 24102 [facility] ED/NONPRE 1 SSURIZED INHALATIO N TREATMENT SPACR A4627 [facility] BAG/RESRV 1 [facility] OR W/WO PHARMACY PHARMACY MASK LLC, D LLC, D W/METRD DOSE INHAL URINLS 86205 [facility] DIP 1 STICK/TAB LET REAGNT NON-AUTO MICRSCPY CULTURE 80521 RO[facility] LOFTON BACTERIAL 1 [facility] QUANTTATI VE COLONY COUNT URINE URNLS DIP 48957 [facility] [place] 1 [facility] [place] [address] FELLER FELLER ABDOMEN 0 EDDIE EDDIE W/O CONTRAST MATERIAL CT PELVIS 04276 [facility] FELLER W/O 0 EDDIE EDDIE CONTRAST MATERIAL Encounters Encounter Start End Date Code Location Performer Type Date OFFICE 50653 [facility] 7 7 T VISIT 15 MINUTES EMERGENCY 61194 STEVIE AMANDA 7 7 PHYSICIAN JR [facility] T VISIT HIGH/URGE NT SEVERITY OFFICE [id number] [facility] 7 7 T VISIT 15 MINUTES OFFICE 76569 [facility] 7 7 T VISIT 25 MINUTES EMERGENCY 20695 [place] 7 7 [facility] T VISIT HIGH/URGE NT SEVERITY [facility] [place] [facility] 7 7 [facility] T EMERGENCY 42122 STEVIE THOMPSON DEPT 7 7 PHYSICIAN VISIT S [facility] HIGH SEVERITY& THREAT [facility] [place] - [address] [facility] OUTPATIEN INC T EMERGENCY 53960 [place] 6 [facility]IS[facility] MODERATE SEVERITY EMERGENCY 44880 STEVIE THOMPSON 6 6 PHYSICIAN DEPARTMEN , [facility] T VISIT HIGH/URGE NT SEVERITY HOSPITAL [facility] 6 6 N OUTPATIEN COMMUNTIY T HOSPITA OFFICE 40690 DOV [facility] 6 6 MEDICAL III T VISIT SERV 15 FOUNDATIO MINUTES [facility]OSP[facility] 6 6 N OUTPATIEN COMMUNTIY T HOSPITA OFFICE 95805 [facility] OUTPATIEN 6 6 T VISIT 15 MINUTES EMERGENCY 06159 STEVIE WAYNE 6 6 PHYSICIAN FOR DEPARTMEN S, PLLC T VISIT MODERATE SEVERITY OFFICE 76293 [facility] OUTPATIEN 6 6 T VISIT 15 MINUTES EMERGENCY 62236 [place] 5 5 [facility] DE[facility] INC T VISIT LOW/MODER SEVERITY EMERGENCY 04143 STEVIE DONOVAN 5 5 [facility] MOD[facility]ATE SEVERITY [facility] [place] [facility] 5 5 [facility] T OFFICE 93576 [facility] 5 T VISIT 15 MINUTES EMERGENCY 45610 [facility] DEPT 5 5 [facility] VISIT EMERGENCY HIGH PHYS SEVERITY& THREAT FUNCJ EMERGENCY 82799 STEVIE DO DEPT 5 5 PHYSICIAN U LIEN VISIT S, PLLC HIGH SEVERITY& THREAT FUNCJ EMERGENCY 25116 [facility] 5 5 [facility] EDW DEPARTMEN EMERGENCY T VISIT PHYS HIGH/URGE NT SEVERITY [facility] [place] [facility] 5 5 [facility] T OFFICE 68849 [facility] 5 T VISIT 15 MINUTES [facility] [place] [facility] 5 5 [facility] [place] - 4 4 [facility] T OFFICE 27995 [facility] 4 4 T VISIT 15 MINUTES OFFICE 28732 [facility] 4 4 T VISIT 15 MINUTES EMERGENCY 21010 DONNA THOMPSON 4 4 KEV KEV DEPARTMEN T VISIT MODERATE SEVERITY [facility] [place] - 4 4 [facility] T OFFICE 11329 [facility] 4 4 T VISIT 15 MINUTES EMERGENCY 96133 [facility] II ROL[facility] II 3 3 THO THO DEPARTMEN T VISIT MODERATE SEVERITY OFFICE 44781 [facility] 3 3 T VISIT 15 MINUTES OFFICE 87148 [facility] 3 3 T VISIT 15 MINUTES OFFICE 06629 [facility] 3 3 T VISIT 15 MINUTES EMERGENCY 37113 GORD[facility] JACKSON 3 3 DEPARTMEN T VISIT HIGH/URGE NT SEVERITY OFFICE [id number] [facility] 3 T VISIT 15 MINUTES [facility] 3 [facility] T OFFICE [id number] [facility] 3 T VISIT 15 MINUTES EMERGENCY [id number] [facility] II 3 3 O DEPARTMEN T VISIT MODERATE SEVERITY [facility] [place] - 3 3 [facility] T OFFICE 04017 [facility] 3 3 T VISIT 15 MINUTES EMERGENCY 51492 [facility] II [facility] II 3 3 O DEPARTMEN T VISIT MODERATE SEVERITY OFFICE 21948 [facility] 3 T VISIT 15 MINUTES OFFICE 10552 [facility] 1 1 T VISIT 15 MINUTES OFFICE 14535 [facility] 1 1 [facility] T NEW 30 MINUTES [facility] [place] [facility] 1 1 [facility] T OFFICE 31884 [facility] 1 1 T VISIT 15 MINUTES OFFICE 72401 [facility] 1 1 T VISIT 15 MINUTES OFFICE 12765 [facility] 1 1 T NEW 30 MINUTES OFFICE 65442 [facility] 0 0 CORRECTION OBIE T VISIT 15 MINUTES EMERGENCY 60640 [facility]CH [facility] 0 0 DEPARTMEN T VISIT HIGH/URGE NT SEVERITY EMERGENCY 16267 [facility] 0 0 PERCY PERCY DEPARTMEN T VISIT HIGH/URGE NT SEVERITY
--- OUTSIDE RECORDS SUMMARY | 2017-05-01 05:09 | External Medical Summary Rpt ---
Demographics Preferred Language Kiswahili Marital Status Unknown [employer]aritan Affiliation Unknown Race Unknown Ethnic Group Unknown Author Author RUTHY Address Unknown Phone Immunization No patient found.
--- OUTSIDE RECORDS SUMMARY | 2017-05-01 05:09 | External Medical Summary Rpt ---
Author Author [employer], [employer] Organization [employer] Address Unknown Phone Unavailable Results CBC W Auto Differential panel in Blood Observa Value Referen Units Interpr Notes Date tion ce etation Range Basophils 0 - 0.2 K/MM3 Normal No Sep 18 informati 2017 5:20 [#/volume on in PM ] in source Blood by data Automated count Basophils 0.1 - 2.0 % Normal No Sep 18 /100 informati 2017 5:20 leukocyte on in PM s in source Blood by data Automated count Eosinophi 0.0 - 0.4 K/mm3 Normal No Sep 18 ls informati 2017 5:20 [#/volume on in PM ] in source Blood by data Automated count Eosinophi 0.1 - % Normal No Sep 18 ls/100 12.0 informati 2017 5:20 leukocyte on in PM s in source Blood by data Automated count Granulocy 1.8 - 7.8 K/mm3 High No Sep 18 tin informati 2017 5:20 [#/volume on in PM ] in source Blood by data Automated count Granulocy 37.0 - % Normal No Sep 18 tin/100 80.0 informati 2017 5:20 leukocyte on in PM s in source Blood by data Automated count Hematocri 37.0 - % Normal No Sep 18 t [Volume 47.0 informati 2016 5:20 on in PM Fraction] source of Blood data Hemoglobi 12.2 - g/dL Normal No Sep 18 n 16.2 informati 2017 5:20 [Mass/vol on in PM ume] in source Blood data Lymphocyt 0.7 - 4.5 K/mm3 Normal No Sep 18 es informati 2017 5:20 [#/volume on in PM ] in source Unspecifi data ed specimen by Automated count Lymphocyt 10 - 50.0 % Normal No Sep 18 es informati 2017 5:20 [#/volume on in PM ] in source Unspecifi data ed specimen by Automated count Erythrocy 27 - 31.2 pg Normal No Sep 18 te mean informati 2017 5:20 corpuscul on in PM ar source hemoglobi data n [Entitic mass] Erythrocy 31.8 - g/dl Normal No Sep 18 te mean 35.4 informati 2017 5:20 corpuscul on in PM ar source hemoglobi data n concentra tion [Mass/vol ume] by Automated count Erythrocy 82.2 - fl Normal No Sep 18 te mean 97.8 informati 2017 5:20 corpuscul on in PM ar volume source [Entitic data volume] by Automated count Monocytes 0.1 - 1.0 K/mm3 Normal No Sep 18 informati 2017 5:20 [#/volume on in PM ] in source Blood by data Automated count Monocytes 1.7 - 9.3 % Normal No Sep 18 /100 informati 2017 5:20 leukocyte on in PM s in source Blood by data Automated count Platelet 7.4 - fl Normal No Sep 18 mean 10.4 informati 2017 5:20 volume on in PM [Entitic source volume] data in Blood by Automated count Platelets 142 - 424 K/mm3 Normal No Sep 18 informati 2017 5:20 [#/volume on in PM ] in source Blood data Erythrocy 4.2 - 5.4 M/mm3 Normal No Sep 18 tin informati 2017 5:20 [#/volume on in PM ] in source Amniotic data fluid Erythrocy 11.5 - % Normal No Sep 18 te 17.5 informati 2017 5:20 distribut on in PM ion width source [Entitic data volume] by Automated count Leukocyte 4.8 - K/MM3 High No Sep 18 s 10.8 informati 2016 5:20 [#/volume on in PM ] in source Blood data Differential panel, method unspecified - Observa Value Referen Units Interpr Notes Date tion ce etation Range Eosinophi 0 - 3 % Normal No Sep 18 ls/100 informati 2017 5:20 leukocyte on in PM s in source Blood by data Manual count LYMPH 15 10 - 50 % Normal No Sep 18 inform 2017 tion in 5:20 PM source data Monocytes 2 - 9 % Normal No Sep 18 /100 informati 2017 5:20 leukocyte on in PM s in source Blood by data Automated count Platele NORMAL No No No No Sep 18 ts informa informa informa informa 2016 [Presen tion in tion in tion in tion in 5:20 PM ce] in source source source source Blood data data data data by Light microsc opy Neutrophi 42 - 76 % High No Sep 18 ls informati 2017 5:20 [#/volume on in PM ] in source Blood by data Automated count Cells No #CELLS No No Sep 18 Counted informati informati informati 2017 5:20 Total [#] on in on in on in PM in Blood source source source data data data Amylase [Enzymatic activity/volume] in Serum or Plasma Observa Value Referen Units Interpr Notes Date tion ce etation Range Amylase 25 - 115 U/L Normal No Sep 18 [Enzymati informati 2017 5:20 c on in PM activity/ source volume] data in Serum or Plasma Comprehensive metabolic 2000 panel in Serum or Plasma Observa Value Referen Units Interpr Notes Date tion ce etation Range Albumin/G 1.1 - 1.8 No Normal No Sep 18 lobulin informati informati 2017 5:20 [Mass on in on in PM ratio] in source source Serum or data data Plasma Albumin 3.4 - 5.0 gm/dL Normal No Sep 18 [Mass/vol informati 2017 5:20 ume] in on in PM Serum or source Plasma data Alkaline 46 - 116 U/L Normal No Sep 18 phosphata informati 2017 5:20 se on in PM [Enzymati source c data activity/ volume] in Serum or Plasma Bilirubin 0.2 - 1.0 mg/dL Normal No Sep 18 .total informati 2017 5:20 [Mass/vol on in PM ume] in source Serum or data Plasma Urea 7 - 18 mg/dL Normal No Sep 18 nitrogen informati 2017 5:20 [Mass/vol on in PM ume] in source Serum or data Plasma Calcium 8.5 - mg/dL Normal No Sep 18 [Mass/vol 10.1 informati 2017 5:20 ume] in on in PM Serum or source Plasma data Chloride 98 - 107 mmoL/L Normal No Sep 18 [Moles/vo informati 2017 5:20 lume] in on in PM Serum or source Plasma data Carbon 21.0 - mmoL/L Normal No Sep 18 dioxide, 32.0 informati 2017 5:20 total on in PM [Moles/vo source lume] in data Serum or Plasma Creatinin 0.55 - mg/dL Normal No Sep 18 e 1.02 informati 2017 5:20 [Mass/vol on in PM ume] in source Serum or data Plasma Creatinin 50 - 200 ML/MIN Normal No Sep 18 e renal informati 2017 5:20 clearance on in PM source predicted data by Cockcroft -Gault formula Estimated 59- ML/MIN No REFERENCE Sep 18 informati RANGE: 2017 5:20 glomerula on in >60 PM r source ML/MIN/1. filtratio data 73 SQUARE n rate METERSIf (GF this patient is -A merican, then multiply theresult by 1.210. Globulin 1.3 - 3.2 gm/dL High No Sep 18 [Mass/vol informati 2016 5:20 ume] in on in PM Serum source data Glucose 74 - 106 mg/dL Normal No Sep 18 [Mass/vol informati 2016 5:20 ume] in on in PM Serum or source Plasma data Potassium 3.5 - 5.1 mmoL/L Normal No Sep 18 inform2016 5:20 [Moles/vo on in PM lume] in source Serum or data Plasma Sodium 136 - 145 mmoL/L Normal No Sep 18 [Moles/vo informati 2016 5:20 lume] in on in PM Serum or source Plasma data Aspartate 15 - 37 U/L Low No Sep 18 informati 2017 5:20 aminotran on in PM sferase source [Enzymati data c activity/ volume] in Serum or Plasma Alanine 12 - 78 U/L Normal No Sep 18 aminotran informati 2016 5:20 sferase on in PM [Enzymati source c data activity/ volume] in Serum or Plasma Protein 6.4 - 8.2 gm/dL Normal No Sep 18 [Mass/vol informati 2016 5:20 ume] in on in PM Serum or source Plasma data Lipase [Enzymatic activity/volume] in Serum or Plasma Observa Value Referen Units Interpr Notes Date tion ce etation Range Lipase 73 - 393 U/L Normal No Sep 18 [Enzymati informati 2016 5:20 c on in PM activity/ source volume] data in Serum or Plasma Urinalysis macro (dipstick) panel in Urine Observa Value Referen Units Interpr Notes Date tion ce etation Range Appeara CLOUDY CLEAR No No No Sep 18 nce of informa informa informa 2017 Urine tion in tion in tion in 4:20 PM source source source data data data Bilirub NEGATIV NEG No No No Sep 18 in E informa informa informa 2017 [Presen tion in tion in tion in 4:20 PM ce] in source source source Urine data data data by Test strip Erythro NEGATIV NEG No No No Sep 18 cytes E informa informa informa 2017 [Presen tion in tion in tion in 4:20 PM ce] in source source source Urine data data data Color DARK YELLOW No No No Sep 18 of YELLOW informa informa informa 2017 Urine tion in tion in tion in 4:20 PM source source source data data data Glucose NEG No No No Sep 18 [Mass/vol informati informati informati 2017 4:20 ume] in on in on in on in PM Urine by source source source Test data data data strip Ketones NEGATIV NEG mg/dL No No Sep 18 E informa informa 2017 [Presen tion in tion in 4:20 PM ce] in source source Urine data data by Automat ed test strip pH of 5.0 - 8.5 No Normal No Sep 18 Urine informati informati 2017 4:20 on in on in PM source source data data Protein NEG mg/dL High No Sep 18 [Mass/vol informati 2017 4:20 ume] in on in PM Urine by source Automated data test strip Specific 1.005 - No Normal No Sep 18 gravity 1.030 informati informati 2017 4:20 of Urine on in on in PM source source data data Leukocy NEGATIV NEG No No No Sep 18 te E informa informa informa 2017 esteras tion in tion in tion in 4:20 PM e source source source [Presen data data data ce] in Urine by Automat ed test strip Nitrite POSITIV NEG No Abnorma No Sep 18 E informa l informa 2017 [Presen tion in tion in 4:20 PM ce] in source source Urine data data by Test strip Urobili 1.0 NEG E.U./dL No No Sep 18 nogen informa informa 2017 [Presen tion in tion in 4:20 PM ce] in source source Urine data data by Test strip Comprehensive metabolic 2000 panel in Serum or Plasma Observa Value Referen Units Interpr Notes Date tion ce etation Range Albumin/G 1.1 - 1.8 No Low No Darren 17 lobulin informati informati 2017 8:13 [Mass on in on in PM ratio] in source source Serum or data data Plasma Albumin 3.4 - 5.0 gm/dL Normal No Jan 05 [Mass/vol informati 2017 8:13 ume] in on in PM Serum or source Plasma data Alkaline 46 - 116 U/L Normal No Jan 05 phosphata informati 2017 8:13 se on in PM [Enzymati source c data activity/ volume] in Serum or Plasma Bilirubin 0.2 - 1.0 mg/dL Normal No Jan 05 .total informati 2017 8:13 [Mass/vol on in PM ume] in source Serum or data Plasma Urea 7 - 18 mg/dL Normal No Jan 05 nitrogen informati 2017 8:13 [Mass/vol on in PM ume] in source Serum or data Plasma Calcium 8.5 - mg/dL Normal No Jan 05 [Mass/vol 10.1 informati 2016 8:13 ume] in on in PM Serum or source Plasma data Chloride 98 - 107 mmoL/L Normal No Jan 05 [Moles/vo informati 2016 8:13 lume] in on in PM Serum or source Plasma data Carbon 21.0 - mmoL/L Normal No Jan 05 dioxide, 32.0 informati 2017 8:13 total on in PM [Moles/vo source lume] in data Serum or Plasma Creatinin 0.55 - mg/dL Normal No Jan 05 e 1.02 informati 2017 8:13 [Mass/vol on in PM ume] in source Serum or data Plasma Creatinin 50 - 200 ML/MIN Normal No Jan 05 e renal informati 2017 8:13 clearance on in PM source predicted data by Cockcroft -Gault formula Estimated 59- ML/MIN No REFERENCE Jan 05 informati RANGE: 2017 8:13 glomerula on in >60 PM r source ML/MIN/1. filtratio data 73 SQUARE n rate METERSIf (GF this patient is -A merican, then multiply theresult by 1.210. Globulin 1.3 - 3.2 gm/dL High No Jan 05 [Mass/vol informati 2016 8:13 ume] in on in PM Serum source data Glucose 74 - 106 mg/dL Normal No Jan 05 [Mass/vol informati 2016 8:13 ume] in on in PM Serum or source Plasma data Potassium 3.5 - 5.1 mmoL/L Normal No Jan 05 inform2016 8:13 [Moles/vo on in PM lume] in source Serum or data Plasma Sodium 136 - 145 mmoL/L Normal No Jan 05 [Moles/vo 2016 8:13 lume] in on in PM Serum or source Plasma data Aspartate 15 - 37 U/L Low No Jan 05 inform2016 8:13 aminotran on in PM sferase source [Enzymati data c activity/ volume] in Serum or Plasma Alanine 12 - 78 U/L Normal No Jan 05 aminotran ati 2016 8:13 sferase on in PM [Enzymati source c data activity/ volume] in Serum or Plasma Protein 6.4 - 8.2 gm/dL Normal No Jan 05 [Mass/vol informati 2016 8:13 ume] in on in PM Serum or source Plasma data CBC W Auto Differential panel in Blood Observa Value Referen Units Interpr Notes Date tion ce etation Range Basophils 0 - 0.2 K/MM3 Normal No Jan 052016 8:13 [#/volume on in PM ] in source Blood by data Automated count Basophils 0.1 - 2.0 % Normal No Jan 05 / informati 2016 8:13 leukocyte on in PM s in source Blood by data Automated count Eosinophi 0.0 - 0.4 K/mm3 Normal No Jan 05 ls ati 2016 8:13 [#/volume on in PM ] in source Blood by data Automated count Eosinophi 0.1 - % Normal No Jan 05 ls/100 12.0 informati 2016 8:13 leukocyte on in PM s in source Blood by data Automated count Granulocy 1.8 - 7.8 K/mm3 Normal No Jan 05 tin informati 2016 8:13 [#/volume on in PM ] in source Blood by data Automated count Granulocy 37.0 - % Normal No Jan 05 tin/100 80.0 informati 2016 8:13 leukocyte on in PM s in source Blood by data Automated count Hematocri 37.0 - % Normal No Jan 05 t [Volume 47.0 informati 2016 8:13 on in PM Fraction] source of Blood data Hemoglobi 12.2 - g/dL No No Jan 05 n 16.2 informati informati 2016 8:13 [Mass/vol on in on in PM ume] in source source Blood data data Lymphocyt 0.7 - 4.5 K/mm3 Normal No Jan 05 es informati 2017 8:13 [#/volume on in PM ] in source Unspecifi data ed specimen by Automated count Lymphocyt 10 - 50.0 % Normal No Dec 17 es informati 2017 8:13 [#/volume on in PM ] in source Unspecifi data ed specimen by Automated count Erythrocy 27 - 31.2 pg Normal No Dec 17 te mean informati 2017 8:13 corpuscul on in PM ar source hemoglobi data n [Entitic mass] Erythrocy 31.8 - g/dl Normal No Jan 05 te mean 35.4 informati 2017 8:13 corpuscul on in PM ar source hemoglobi data n concentra tion [Mass/vol ume] by Automated count Erythrocy 82.2 - fl Normal No Jan 05 te mean 97.8 informati 2017 8:13 corpuscul on in PM ar volume source [Entitic data volume] by Automated count Monocytes 0.1 - 1.0 K/mm3 High No Dec 17 informati 2017 8:13 [#/volume on in PM ] in source Blood by data Automated count Monocytes 1.7 - 9.3 % High No Dec 17 /100 informati 2017 8:13 leukocyte on in PM s in source Blood by data Automated count Platelet 7.4 - fl Low No Jan 05 mean 10.4 informati 2017 8:13 volume on in PM [Entitic source volume] data in Blood by Automated count Platelets 142 - 424 K/mm3 No No Dec 17 informati informati 2017 8:13 [#/volume on in on in PM ] in source source Blood data data Erythrocy 4.2 - 5.4 M/mm3 Normal No Dec 17 tin informati 2017 8:13 [#/volume on in PM ] in source Amniotic data fluid Erythrocy 11.5 - % Normal No Jan 05 te 17.5 informati 2017 8:13 distribut on in PM ion width source [Entitic data volume] by Automated count Leukocyte 4.8 - K/MM3 Normal No Dec 17 s 10.8 informati 2016 8:13 [#/volume on in PM ] in source Blood data
--- OUTSIDE RECORDS SUMMARY | 2017-05-01 05:09 | External Medical Summary Rpt ---
Demographics Preferred Language Greek Marital Status Unknown Orthodox Affiliation Unknown Race Unknown Ethnic Group Unknown Author Author RUTHY Address Unknown Phone Immunization No patient found.
== END 2017-04-08 19:57 | disposition home or self-care (01) ==
LOC: UTC 14:58 → ER 15:01
PROVIDERS: Emergency Medicine; Nurse Practitioner Family
DX: N83.201 Unspecified ovarian cyst, right side (principal); F17.210 Nicotine dependence, cigarettes, uncomplicated; I10 Essential (primary) hypertension; Z79.899 Other long term (current) drug therapy